=== PATIENT | female | born 1970 | race Caucasian/White ===

== ENCOUNTER 2023-11-01 10:10 | Inpatient (IN) ==
[2023-11-01 10:47] LABS: Basophils # (auto) 0.03 K/uL (0.00-0.20); Basophils % (auto) 0.2 %; Eosinophils # (auto) 0.01 K/uL (0.00-0.50); Eosinophils % (auto) 0.1 %; Hematocrit (blood only) 53.3 % (37.0-47.0); Hemoglobin 17.8 g/dl (12.0-16.0); Immature Granulocytes # (auto) 0.06 K/uL (0.01-0.20); Immature Granulocytes % (auto) 0.4 %; Lymphocytes # (auto) 1.78 K/uL (1.20-3.40); Lymphocytes % (auto) 11.2 %; Mean Corpuscular Hemoglobin 30.2 pg (25.0-34.0); Mean Corpuscular Hgb Conc 33.4 g/dL (32.0-36.0); Mean Corpuscular Volume 90.5 fL (80.0-100.0); Mean Platelet Volume 10.1 fL (9.4-12.4); Monocytes # (auto) 0.49 K/uL (0.11-0.59); Monocytes % (auto) 3.1 %; Neutrophils # (auto) 13.52 K/uL (1.40-6.50); Platelet Count 389 K/uL (130-400); RDW Standard Deviation 46.5 fL (36.4-46.3); Red Blood Count 5.89 M/uL (4.20-5.40); White Blood Count 15.89 K/ul (4.8-10.8)
[2023-11-01 11:07] LABS: Albumin Globulin Ratio 1.5 (0.9-2); Albumin Level 5.4 gm/dl (3.4-5.0); BUN Creatinine Ratio 27.5 (10-20); Bilirubin,Total 0.7 mg/dl (0.2-1.0); Calcium 11.5 mg/dl (8.6-10.3); Creatinine Clr Calc Pharmacy 55.7 ml/min; Est GFR (African American) 73.2 ml/min; Est GFR (Non-African American) 63.2 ml/min; Globulin 3.6 gm/dl (2.5-4.0); Potassium 3.9 mmol/L (3.5-5.1); Pregnancy Test, Serum Negative (Negative)
--- NOTE | 2023-11-01 11:08 | Emergency Department Note ---
Impression & Plan SBO (small bowel obstruction), Abdominal pain, Nausea & vomiting ED Provider Note HISTORY OF PRESENT ILLNESS: Patient is a 53-year-old female presenting with generalized abdominal pain and vomiting. Patient reports she has a history of diverticulitis, with her last bout of diverticulitis being a few years ago. She had surgery secondary to a perforated diverticula in the past. Reports that she ate a candy bar with peanuts in it last night and then developed generalized abdominal pain last night. Pain worsened today. She has had a few episodes of vomiting. Denies any other abdominal surgical histories. Denies any fevers. Denies any dysuria or hematuria. Reports the pain radiates into her left low back. Denies any diarrhea. She has not tried anything for the pain yet today. Currently rates an 8 out of 10. Denies any chest pain or shortness of breath. ROS: as above PHYSICAL EXAM: Constitutional: Patient appears in no acute distress. HENT: Head: Normocephalic and atraumatic. Eyes: EOMI, PERRL Mouth/Throat: Mucous membranes moist. Neck: Trachea midline. Neck supple. Cardiovascular: RRR, No murmurs, rubs or gallops. Intact distal pulses. Pulmonary/Chest: No respiratory distress. Breath sounds clear and equal bilaterally. No wheezes or rales. Abdominal: Abdomen soft, no tenderness, rebound or guarding. Musculoskeletal: No edema, tenderness or deformity noted. Skin: Warm and dry. No rash, erythema, pallor or cyanosis Psychiatric: Appropriate mood and affect for situation. Neurological: Alert and keenly responsive. CN II-XII grossly intact, moving all extremities equally and fully. MDM: - Vitals signs showed tachycardia - History obtained via patient. History as above. - Chronic conditions affecting care: diverticulitis - Differential diagnoses include, but are not limited to: diverticulitis; ischemic colitis; small bowel obstruction; UTI; ureteral calculi - Order placed for continuous cardiac monitoring. At this time, monitor showed rate of 99 bpm with normal sinus rhythm, per my interpretation. - External medical records reviewed. - Laboratory workup interpreted by myself showed leukocytosis (WBC 15.89 - likely concentrated from dehydration from vomiting); elevated anion gap (13); hypercalcemia (Ca 11.5); normal lipase; negative hCG; normal lactate - CT abdomen/pelvis with IV contrast showed high-grade small bowel obstruction with several transition points within the pelvis. Noted to have mild swelling of the mesentery concerning for a closed-loop obstruction. - Patient given 1L NS, 50 mcg IV fentanyl and 4 mg IV zofran in ER. - Discussed case with ALESSANDRO with general surgery at 12:27. She came and evaluated the patient. Requested patient be admitted to medicine service with surgery on as consult. Recommended NG tube placement. - NG tube inserted by nursing staff. - Discussion was had with immigration case worker about patient's case and need for admission - Hospitalist consulted for admission [facility] ASSESSMENT AND PLAN: Diagnosis: abdominal pain; high grade small bowel obstruction; closed loop obstruction Plan: admit Past Med/Surg History Problem List (Updated 11/01/23 @ 13:02 by Candy Cheung PA-C) Nausea & vomiting (Acute) Abdominal pain (Acute) SBO (small bowel obstruction) (Acute) Rabies, need for prophylactic vaccination against (Acute) Pasteurella cellulitis due to cat bite (Acute) Cat bite (Acute) Medical History (Updated 11/01/23 @ 13:02 by Candy Cheung PA-C) Depression GERD (gastroesophageal reflux disease) Diverticulitis Surgical History (Updated 11/01/23 @ 13:02 by Candy Cheung PA-C) Hx of colectomy 2020 Laparoscopic partial colectomy with coloproctostomy Hx of hemorrhoidectomy Hx of tubal ligation Hx of section Family History (Updated 11/01/23 @ 13:03 by Candy Cheung PA-C) Grandmother (Maternal) Diabetes Social History Smoking Status: Former smoker Tobacco Type: Cigarettes marital status: Current Living Situation: Spouse and Family current occupational status: employed Feels Safe at Home: Yes Allergies Allergies Allergy/AdvReac Type Severity Reaction Status Date / Time fluconazole Allergy Mild Rash Unverified 11/01/23 11:38 morphine Allergy Mild Hives Unverified 11/01/23 11:38 Home Meds Home Medications Medication Instructions Recorded Confirmed naproxen 1 tab PO DIRECTED PRN Pain 11/01/23 11/01/23 Results & Data (ED) Vital Signs Vital Signs - 24 hr 11/01/23 10:12 11/01/23 10:30 11/01/23 12:10 Temperature 36.7 C 36.7 C Temperature Source Temporal Artery Scan Oral Pulse Rate 123 H 106 H Pulse Rate [Right Finger] 99 H Pulse Rhythm [Right Finger] Regular Pulse Strength [Right Finger] Normal Respiratory Rate 16 16 Respiratory Effort / Characteristics Non-Labored Non-Labored Respiratory Depth Normal Normal Blood Pressure 114/81 Blood Pressure [Left Arm] 141/94 H Blood Pressure Mean 92 Blood Pressure Mean [Left Arm] 109 Blood Pressure Position [Left Arm] Lying Pulse Oximetry 97 97 Oxygen Delivery Method Room Air Room Air Sepsis Recent Fever Within 48 Hours No Sepsis New/Unexplained Change in Mental Status No Sepsis Action Taken by Nursing No Action Required Laboratory Data 11/01/23 10:25 11/01/23 10:25 Lab Results 11/01/23 11/01/23 Range/Units 10:25 12:40 WBC 15.89 H (4.8-10.8) K/ul RBC 5.89 H (4.20-5.40) M/uL Hgb 17.8 H (12.0-16.0) g/dl Hct 53.3 H (37.0-47.0) % MCV 90.5 (80.0-100.0) fL MCH 30.2 (25.0-34.0) pg MCHC 33.4 (32.0-36.0) g/dL RDW Std Deviation 46.5 H (36.4-46.3) fL RDW Coeff of Thong 14.0 (11.5-14.5) % Plt Count 389 (130-400) K/uL MPV 10.1 (9.4-12.4) fL Immature Gran % (Auto) 0.4 % Neut % (Auto) 85.0 % Lymph % (Auto) 11.2 % Callaway % (Auto) 3.1 % Eos % (Auto) 0.1 % Baso % (Auto) 0.2 % Neut # (Auto) 13.52 H (1.40-6.50) K/uL Lymph # (Auto) 1.78 (1.20-3.40) K/uL Callaway # (Auto) 0.49 (0.11-0.59) K/uL Eos # (Auto) 0.01 (0.00-0.50) K/uL Baso # (Auto) 0.03 (0.00-0.20) K/uL Immature Gran # (Auto) 0.06 (0.01-0.20) K/uL Sodium 139 (136-145) mmol/L Potassium 3.9 (3.5-5.1) mmol/L Chloride 100 (98-107) mmol/L Carbon Dioxide 26 (21-32) mmol/L Anion Gap 13 H (3-11) BUN 28 H (6-23) mg/dl Creatinine 1.02 (0.6-1.2) mg/dl Est Cr Clr Drug Dosing 55.7 ml/min Est GFR ( Amer) 73.2 ml/min Est GFR (Non-Af Amer) 63.2 ml/min BUN/Creatinine Ratio 27.5 H (10-20) Glucose 136 H (70-99(Fasting)) mg/dl Lactate 0.9 (0.4-2.0) mmol/L Calcium 11.5 H (8.6-10.3) mg/dl Total Bilirubin 0.7 (0.2-1.0) mg/dl AST 21 (13-39) U/L ALT 17 (7-52) U/L Alkaline Phosphatase 69 (34-104) U/L Total Protein 9.0 H (6.0-8.3) gm/dl Albumin 5.4 H (3.4-5.0) gm/dl Globulin 3.6 (2.5-4.0) gm/dl Albumin/Globulin Ratio 1.5 (0.9-2) Lipase 13 (11-82) U/L HCG, Qual Negative (Negative) Administered Medications Discontinued Medications Fentanyl Citrate (Fentanyl Citrate Pf 100 Mcg/2 Ml Vial) 50 mcg IV NOW STA Stop: 11/01/23 11:06 Last Admin: 11/01/23 11:31 Dose: 50 mcg Documented By: CAW Sodium Chloride (Nss) 1,000 mls @ 999 mls/hr IV .Q1H1M ONE Stop: 11/01/23 12:05 Last Admin: 11/01/23 11:29 Dose: 999 mls/hr Documented By: CAW Ioversol (Optiray 320 100ml) 93 ml IV ONCE ONE Stop: 11/01/23 11:20 Last Admin: 11/01/23 11:20 Dose: 93 ml Documented By: JOHNSON Ondansetron HCl (Ondansetron Inj 2 Mg/Ml 2 Ml Vial) 4 mg IV NOW STA Stop: 11/01/23 11:06 Last Admin: 11/01/23 11:31 Dose: 4 mg Documented By: WENDY Imaging Data Radiologist's Impression: Abdomen/Pelvis CT 11/01/23 10:56 CT OF THE ABDOMEN AND PELVIS WITH CONTRAST CLINICAL HISTORY: Lower abdominal pain. COMPARISON STUDY: CT of the abdomen and pelvis May 05, 2020. TECHNIQUE: Following IV administration of 93 mL of Optiray, axial images of the abdomen and pelvis were obtained from the lung bases to the proximal femurs. Images were reviewed in the axial, sagittal, and coronal planes. IV contrast was administered without complication. Automated exposure control was utilized for the study. A dose lowering technique was utilized adhering to the principles of ALARA. CT DOSE: 427.28 mGy.cm FINDINGS: No pneumatosis, free air or portal venous gas is present. Liver, spleen, adrenal glands, kidneys and pancreas are unremarkable. There is no biliary or pancreatic ductal dilatation. There is no hydronephrosis. Subcentimeter hypodense left lower pole renal lesion is similar to prior CT. This is benign. The proximal to mid small bowel is moderately dilated fluid- filled. Small bowel measure up to 4.7 cm in caliber. A transition point within the upper pelvis on image 208 of 349 is noted. This is adjacent to small bowel anastomosis. Additional small bowel loops converge on this point with additional apparent transition points. There is slight swirling of the mesentery. A small amount of associated ascites is present. No bowel wall thickening is identified. 6.5 cm fundal lesion within the uterus is unchanged and favors a fibroid. IMPRESSION: 1. Findings consistent with a high-grade small bowel obstruction. Several transition points in close proximity to one another within the pelvis, at/or adjacent to small bowel anastomoses. Mild swirling of the mesentery. Given the configuration, a closed loop obstruction cannot be excluded. Small amount of ascites. No pneumatosis, free air or portal venous gas. 2. 6.5 cm fibroid. ACT 112: Negative or not required by law. Electronically signed by: Gordo Chun M.D. 11/01/2023 12:15 PM Discharge Plan Visit Data Chief Complaint: Abdominal Pain Stated Complaint: DIVERTICULITIS, ABD PAIN, NAUSEA, LIGHTHEADED ED Provider: Yanely Blanchard Discharge Problem: SBO (small bowel obstruction), Abdominal pain, Nausea & vomiting Forms Stand Alone Forms: [employer] Prescriptions Prescriptions: No Action naproxen 1 tab PO DIRECTED PRN (Reason: Pain) Rx Instructions: otc, unknown dose Referrals Referrals: Heather Mendoza MD [Primary Care Provider] -
[2023-11-01] MEDS: OPTIRAY 320 100ml IV ONE (11:20)
[2023-11-01] MEDS: SODIUM CHLORIDE 0.9% 1,000 ML IV ONE (11:29)
[2023-11-01] MEDS: fentaNYL citrate PF 100 MCG/2 ML VIAL IV STA ×2 (11:31→13:50)
[2023-11-01] MEDS: ONDANSETRON INJ 2 MG/ML 2 ML VIAL IV STA ×2 (11:31→13:50)
--- NOTE | 2023-11-01 12:18 | CT Scan Report ---
CT OF THE ABDOMEN AND PELVIS WITH CONTRAST CLINICAL HISTORY: Lower abdominal pain. COMPARISON STUDY: CT of the abdomen and pelvis May 05, 2020. TECHNIQUE: Following IV administration of 93 mL of Optiray, axial images of the abdomen and pelvis we re obtained from the lung bases to the proximal femurs. Images were reviewed in the axial, sagittal, and coronal planes. IV contrast was administered without complication. Automated exposure control wa s utilized for the study. A dose lowering technique was utilized adhering to the principles of ALARA . CT DOSE: 427.28 mGy.cm FINDINGS: No pneumatosis, free air or portal venous gas is present. Liver, spleen, adrenal glands, ki dneys and pancreas are unremarkable. There is no biliary or pancreatic ductal dilatation. There is no hydronephrosis. Subcentimeter hypodense left lower pole renal lesion is similar to prior CT. This is benign. The proximal to mid small bowel is moderately dilated fluid-filled. Small bowel measure up t o 4.7 cm in caliber. A transition point within the upper pelvis on image 208 of 349 is noted. This is adjacent to small bowel anastomosis. Additional small bowel loops converge on this point with additi onal apparent transition points. There is slight swirling of the mesentery. A small amount of associa edgar ascites is present. No bowel wall thickening is identified. 6.5 cm fundal lesion within the uteru s is unchanged and favors a fibroid. IMPRESSION: 1. Findings consistent with a high-grade small bowel obstruction. Several transition points in close proximity to one another within the pelvis, at/or adjacent to small bowel anastomoses. Mild swirling of the mesentery. Given the configuration, a closed loop obstruction cannot be excluded. Small amount of ascites. No pneumatosis, free air or portal venous gas. 2. 6.5 cm fibroid. ACT 112: Negative or not required by law. Electronically signed by: Gordo Chun M.D. 11/01/2023 12:15 PM
--- NOTE | 2023-11-01 12:50 | Surgery Consultation ---
Date of Consultation November 01, 2023 Assessment & Plan (1) SBO (small bowel obstruction): Patient is a pleasant 53 yo with PMH of carpal tunnel and sigmoid bowel resection 2020 that presented to [facility] ER with c/o abdominal pain that started last night. She states her pain was stabbing in nature and had 2 episodes of nausea with vomiting this AM and associated chills. She had a bowel resection in 2020 at [facility] for a perforated diverticula, denies other abdominal surgeries. She has been NPO since last night, and takes a naproxen for her carpal tunnel, otherwise denies routine medication use. Last BM was yesterday, denies dysuria. On exam is in no acute distress, afebrile, vss , wbc 15, lactate 0.9, abdomen is mildly distended, TTP throughout but soft. reports feeling better since IV analgesics and antiemetics. The patient is not actively vomiting and denies nausea however given her CT scan reading she may benefit from an NGT for bowel decompression. admit to medicine KUB ordered Keep NPO IV Fluids for hydration IV antiemetic PRN IV analgesic PRN Continue conservative measures, Will discuss case with on-call surgeon and further recommendations will be forthcoming. Supervising Physician Co-Signing Physician Notes Patient seen and examined, labs and imaging reviewed, agree with above. Presented with small bowel obstruction. History of sigmoid colectomy for diverticulitis as well as and laparoscopic inguinal hernia repair. No prior episodes of bowel obstruction. Her abdomen feels bloated and weird but she does not have any significant pain at this time. On exam she is afebrile with stable vital, abdomen distended, soft, tender to palpation in lower abdomen, no guarding or rebound. WBC 15.89, CT personally reviewed and interpreted agree with the assessment of small bowel obstruction with transition point likely in the pelvis secondary to adhesions. It appears that the bowel was quite matted in this area and there are several bowel loops that are distended around it. NG tube has been placed but appears to be colon esophagus, would recommend repositioning. Would recommend nonsurgical management at this time, continue with NG tube to low remittent wall suction and bowel rest. Surgical follow, call questions or concerns History of Present Illness Reason for Consultation: SBO Requesting Physician: Yanely Blanchard History of Present Illness Patient is a pleasant 53 yo with PMH of carpal tunnel and sigmoid bowel resection 2020 that presented to [facility] ER with c/o abdominal pain that started last night. She states her pain was stabbing in nature and had 2 episodes of nausea with vomiting this AM and associated chills. She had a bowel resection in 2020 at [facility] for a perforated diverticula, denies other abdominal surgeries. She has been NPO since last night, and takes a naproxen for her carpal tunnel, other moore denies routine medication use. Last BM was yesterday, denies dysuria. Allergies Allergy/AdvReac Type Severity Reaction Status Date / Time fluconazole Allergy Mild Rash Unverified 11/01/23 11:38 morphine Allergy Mild Hives Unverified 11/01/23 11:38 Home Medications Medication Instructions Recorded Confirmed Type naproxen 1 tab PO DIRECTED PRN Pain 11/01/23 11/01/23 History Patient History Medical History Depression GERD (gastroesophageal reflux disease) Diverticulitis Surgical History Hx of colectomy 2020 Laparoscopic partial colectomy with coloproctostomy Hx of hemorrhoidectomy Hx of tubal ligation Hx of section Family History Grandmother (Maternal) Diabetes Social History Smoking Status: Former smoker Tobacco Type: Cigarettes marital status: Current Living Situation: Spouse and Family current occupational status: employed Feels Safe at Home: Yes Review of Systems Constitutional: + chills; no fever Respiratory: no dyspnea Cardiovascular: no chest pain Gastrointestinal: + abdominal pain, + bloating, + nausea a nd + vomiting Genitourinary: no dysuria Musculoskeletal: no muscle weakness Physical Exam Constitutional: cooperative; no acute distress Respiratory: normal respiratory effort and able to speak in complete sentences; no respiratory distress Cardiovascular: Rate/Rhythm: + tachycardic (99) Gastrointestinal (Abdomen): Inspection/Auscultation: + abdomen distended and + abdominal surgical scar Percussion/Palpation: + abdomen tender and abdomen soft Results & Data Vital Signs (Past 12 Hours) Vital Signs Temp Pulse Pulse Resp BP BP Pulse Ox 11/01/23 12:10 98.1 F 99 H 16 141/94 H 97 11/01/23 10:30 106 H 11/01/23 10:12 98.1 F 123 H 16 114/81 97 O2 Del Method 11/01/23 12:10 Room Air 11/01/23 10:30 11/01/23 10:12 Room Air Diagnostic Findings [place], [place] [phone] CT Scan Report Patient: STEPHANIE CAMPBELL Admit Date: 11/01/23 MR#: [id number] Address[address]: [address] Acct ID:[id number] Address2: Date: 1970 [facility] Zip: [place] [address] Age: 53 Location: ED Sex: F Room/Bed: Att Phy: Diagnosis: DIVERTICULITIS, ABD PAIN, NAUSEA, LIGHTHEADED Corie Phy: Heather Mendoza MD Service Date: 11/01/23 [facility] Phy: Interpreting Phy: Gordo Chun [facility] Phy: Ordering Phy: Yanely Blanchard MD cc: ~ CT OF THE ABDOMEN AND PELVIS WITH CONTRAST CLINICAL HISTORY: Lower abdominal pain. COMPARISON STUDY: CT of the abdomen and pelvis May 05, 2020. TECHNIQUE: Following IV administration of 93 mL of Optiray, axial images of the abdomen and pelvis were obtained from the lung bases to the proximal femurs. Images were reviewed in the axial, sagittal, and coronal planes. IV contrast was administered without complication. Automated exposure control was utilized for the study. A dose lowering technique was utilized adhering to the principles of ALARA. CT DOSE: 427.28 mGy.cm FINDINGS: No pneumatosis, free air or portal venous gas is present. Liver, spleen, adrenal glands, kidneys and pancreas are unremarkable. There is no biliary or pancreatic ductal dilatation. There is no hydronephrosis. Subcentimeter hypodense left lower pole renal lesion is similar to prior CT. This is benign. The proximal to mid small bowel is moderately dilated fluid- filled. Small bowel measure up to 4.7 cm in caliber. A transition point within the upper pelvis on image 208 of 349 is noted. This is adjacent to small bowel anastomosis. Additional small bowel loops converge on this point with additional apparent transition points. There is slight swirling of the mesentery. A small amount of associated ascites is present. No bowel wall thickening is identified. 6.5 cm fundal lesion within the uterus is unchanged and favors a fibroid. IMPRESSION: 1. Findings consistent with a high-grade small bowel obstruction. Several transition points in close proximity to one another within the pelvis, at/or adjacent to small bowel anastomoses. Mild swirling of the mesentery. Given the configuration, a closed loop obstruction cannot be excluded. Small amount of ascites. No pneumatosis, free air or portal venous gas. 2. 6.5 cm fibroid. ACT 112: Negative or not required by law. Electronically signed by: Gordo Chun M.D. 11/01/2023 12:15 PM Dictated: 11/01/23 1205 Transcribed: 11/01/23 120 Results CBC w Diff Results: RBC 5.89 M/uL (4.20-5.40) H 11/01/23 WBC 15.89 K/ul (4.8-10.8) H 11/01/23 Hgb 17.8 g/dl (12.0-16.0) H 11/01/23 Hct 53.3 % (37.0-47.0) H 11/01/23 MCV 90.5 fL (80.0-100.0) 11/01/23 MCH 30.2 pg (25.0-34.0) 11/01/23 MCHC 33.4 g/dL (32.0-36.0) 11/01/23 RDW Standard Deviation 46.5 fL (36.4-46.3) H 11/01/23 RDW Coefficient of Variation 14.0 % (11.5-14.5) 11/01/23 Plt Count 389 K/uL (130-400) 11/01/23 MPV 10.1 fL (9.4-12.4) 11/01/23 Neutrophils (%) (Auto) 85.0 % 11/01/23 Lymphocytes (%) (Auto) 11.2 % 11/01/23 Monocytes # (Auto) 0.49 K/uL (0.11-0.59) 11/01/23 Eosinophils # (Auto) 0.01 K/uL (0.00-0.50) 11/01/23 Immature Granulocyte % (Auto) 0.4 % 11/01/23 Neutrophils # (Auto) 13.52 K/uL (1.40-6.50) H 11/01/23 Lymphocytes # (Auto) 1.78 K/uL (1.20-3.40) 11/01/23 Monocytes # (Auto) 0.49 K/uL (0.11-0.59) 11/01/23 Eosinophils # (Auto) 0.01 K/uL (0.00-0.50) 11/01/23 Basophils # (Auto) 0.03 K/uL (0.00-0.20) 11/01/23 Immature Granulocyte # (Auto) 0.06 K/uL (0.01-0.20) 4 PG Care Time/CCT Total # of Minutes Spent Total Time Spent with Patient: Total time spent is greater than 50% in coordination of care (as documented) at patient's floor/unit and/or counseling patient: Coding Level of Care Code 48962 IN/OBS CONSULT LVL 3,45M Diagnoses SBO (small bowel obstruction) K56.609
[2023-11-01] MEDS ORDERED: ONDANSETRON INJ 2 MG/ML 2 ML VIAL IV PRN (13:29)
[2023-11-01] MEDS: BENZOCAINE/TETRACAIN/BUTAM 50 APPLN/5 GM CAN EXT ONE (13:40)
--- NOTE | 2023-11-01 13:46 | History & Physical Report ---
Date of Service November 01, 2023 Assessment & Plan (1) SBO (small bowel obstruction): Plan: This is a 53 yr old M who has a significant PMH of diverticulitis complicated with abscess s/p partial colectomy in 2020, GERD, hx of depression, hx of tobacco abuse who presents to ED 2/2 abd pain x 1 day. High Grade Small bowel obstruction admit to med/surg hx of prior abd surgeries include c section, partial colectomy --CT a/p: Findings consistent with a high-grade small bowel obstruction. Several transition points in close proximity to one another within the pelvis, at/or adjacent to small bowel anastomoses. Mild swirling of the mesentery. Given the configuration, a closed loop obstruction cannot be excluded. Small amount of ascites. No pneumatosis, free air or portal venous gas. NPO, Bowel rest, IVF LR @100cc/hr, pepcid IV BID NGT ordered, nurse to place in ED General surgery consulted - await further recs pt with morphine allergy, will add scheduled IV APAP and prn IV dilaudid for severe pain Hx of complicated diverticulitis with abscess s/p partial colectomy in 2020 at [facility] Tobacco abuse in process of quitting smoking, hasn't smoked last 2 days continue to encourage cessation prn nicotine patch DVT ppx: SQ Heparin in event surgical procedure warranted FULL CODE PCP: Dr. Dhruv Valentine Dispo: admit to med/surg Pt was seen and examined in collaboration with Dr. Cruz, please see addendum A total of 50 minutes was spent coordinating, documenting, and providing care for this patient excluding time spent in the performance of separately billed services. This included personally viewing all current laboratories and imaging studies, medication reconciliation, outpatient chart review, and discussion with specialists. History of Present Illness Chief Complaint: Abdominal pain x 1 day. Primary Care Provider: Heather Mendoza MD This is a 53 yr old M who has a significant PMH of diverticulitis complicated with abscess s/p partial colectomy in 2020, GERD, hx of depression, hx of tobacco abuse who presents to ED 2/2 abd pain x 1 day. Her is at bedside who helps elicit hx. She woke up this morning with a, "burning pain" in her abdomen that radiated up the side of her back. Pain was constant but would wax and wane in severity. She thought this was her diverticulitis due to prior hx of and recently eating chocolate bar with peanuts. She feels chilled but denies any documented fevers. She has had severe nausea with several episodes of vomiting. She had a BM yesterday morning but was formed and small. She had diarrhea on Sunday. Over last few days she notes a decreased appetite. She denies hematemesis, melena, hematochezia, dysuria, increased burn/urg with urination. In ED she underwent CT scan which shows High grade small bowel obstruction. Ge neral surgery was consulted but has not yet seen the patient. ED provider started antiemetics, analgesia and fluids. Allergies Allergy/AdvReac Type Severity Reaction Status Date / Time fluconazole Allergy Mild Rash Unverified 11/01/23 11:38 morphine Allergy Mild Hives Unverified 11/01/23 11:38 Home Medications Medication Instructions Recorded Confirmed Type naproxen 1 tab PO DIRECTED PRN Pain 11/01/23 11/01/23 History Past Med/Surg History Problem List Nausea & vomiting (Acute) Abdominal pain (Acute) SBO (small bowel obstruction) (Acute) Rabies, need for prophylactic vaccination against (Acute) Pasteurella cellulitis due to cat bite (Acute) Cat bite (Acute) Medical History Depression GERD (gastroesophageal reflux disease) Diverticulitis Surgical History Hx of colectomy 2020 Laparoscopic partial colectomy with coloproctostomy Hx of hemorrhoidectomy Hx of tubal ligation Hx of section Family History Grandmother (Maternal) Diabetes Social History Smoking Status: Former smoker Tobacco Type: Cigarettes marital status: Current Living Situation: Spouse and Family current occupational status: employed Feels Safe at Home: Yes Review of Systems Review of Systems: All systems reviewed & are unremarkable except as noted in HPI & below Physical Exam Physical Exam: Constitutional: WD/WN, vitals as above, appears acutely ill, +pain, sitting up in bed, pleasant, conversing easily Head: Normocephalic, Atraumatic Eyes: PERRL, conjunctivae normal, anicteric sclerae ENMT: external ear and nose normal, oropharynx normal/dry Neck: trachea midline, no thyromegaly normal visual inspection Respiratory: normal respiratory effort, lungs clear to auscultation, no wheeze, rales, rhonchi. Normal insp/exp effort, no accessory muscle use Cardiovascular: RRR, no murmur, no edema Vessels: no JVD or carotid bruit Chest: normal inspection of chest Abdomen: absent bowel sounds, soft, TTP throughout, no rebound/guarding Musculoskeletal: no cyanosis or clubbing, AROM x 4 Skin: no rashes, warm and dry normal turgor Neurologic: no face palsy, no dysarthria CN's II-XI intact bilaterally and moves all extremities Psychiatric: A+Ox3, euthymic affect : deferred Results & Data Results & Data Vital Signs (Past 12 Hours) Vital Signs Temp Pulse Pulse Resp BP BP Pulse Ox 11/01/23 12:10 36.7 C 99 H 16 141/94 H 97 11/01/23 10:30 106 H 11/01/23 10:12 36.7 C 123 H 16 114/81 97 O2 Del Method 11/01/23 12:10 Room Air 11/01/23 10:30 11/01/23 10:12 Room Air Laboratory Results I have independently reviewed and interpreted patient's admitting labs including CBC, CMP, lactate, lipase,hcg. Diagnostic Findings Abdomen/Pelvis CT 11/01/23 10:56 CT OF THE ABDOMEN AND PELVIS WITH CONTRAST CLINICAL HISTORY: Lower abdominal pain. COMPARISON STUDY: CT of the abdomen and pelvis May 05, 2020. TECHNIQUE: Following IV administration of 93 mL of Optiray, axial images of the abdomen and pelvis were obtained from the lung bases to the proximal femurs. Images were reviewed in the axial, sagittal, and coronal planes. IV contrast was administered without complication. Automated exposure control was utilized for the study. A dose lowering technique was utilized adhering to the principles of ALARA. CT DOSE: 427.28 mGy.cm FINDINGS: No pneumatosis, free air or portal venous gas is present. Liver, spleen, adrenal glands, kidneys and pancreas are unremarkable. There is no bilia ry or pancreatic ductal dilatation. There is no hydronephrosis. Subcentimeter hypodense left lower pole renal lesion is similar to prior CT. This is benign. The proximal to mid small bowel is moderately dilated fluid-filled. Small bowel measure up to 4.7 cm in caliber. A transition point within the upper pelvis on image 208 of 349 is noted. This is adjacent to small bowel anastomosis. Additional small bowel loops converge on this point with additional apparent transition points. There is slight swirling of the mesentery. A small amount of associated ascites is present. No bowel wall thickening is identified. 6.5 cm fundal lesion within the uterus is unchanged and favors a fibroid. IMPRESSION: 1. Findings consistent with a high-grade small bowel obstruction. Several transition points in close proximity to one another within the pelvis, at/or adjacent to small bowel anastomoses. Mild swirling of the mesentery. Given the configuration, a closed loop obstruction cannot be excluded. Small amount of ascites. No pneumatosis, free air or portal venous gas. 2. 6.5 cm fibroid. ACT 112: Negative or not required by law. Electronically signed by: Gordo Chun M.D. 11/01/2023 12:15 PM Medications Administered Medication List Discontinued Medications Fentanyl Citrate (Fentanyl Citrate Pf 100 Mcg/2 Ml Vial) 50 mcg IV NOW STA Stop: 11/01/23 11:06 Last Admin: 11/01/23 11:31 Dose: 50 mcg Documented By: WENDY Sodium Chloride (Nss) 1,000 mls @ 999 mls/hr IV .Q1H1M ONE Stop: 11/01/23 12:05 Last Admin: 11/01/23 11:29 Dose: 999 mls/hr Documented By: WENDY Ioversol (Optiray 320 100ml) 93 ml IV ONCE ONE Stop: 11/01/23 11:20 Last Admin: 11/01/23 11:20 Dose: 93 ml Documented By: JOHNSON Ondansetron HCl (Ondansetron Inj 2 Mg/Ml 2 Ml Vial) 4 mg IV NOW STA Stop: 11/01/23 11:06 Last Admin: 11/01/23 11:31 Dose: 4 mg Documented By: WENDY COVID-19 Results Results COVID-19 Adm Lab Results: RBC 5.89 M/uL (4.20-5.40) H 11/01/23 WBC 15.89 K/ul (4.8-10.8) H 11/01/23 Hgb 17.8 g/dl (12.0-16.0) H 11/01/23 Hct 53.3 % (37.0-47.0) H 11/01/23 Plt Count 389 K/uL (130-400) 11/01/23 Neutrophils (%) (Auto) 85.0 % 11/01/23 Lymphocytes (%) (Auto) 11.2 % 11/01/23 Monocytes # (Auto) 0.49 K/uL (0.11-0.59) 11/01/23 Eosinophils # (Auto) 0.01 K/uL (0.00-0.50) 11/01/23 Immature Granulocyte % (Auto) 0.4 % 11/01/23 Neutrophils # (Auto) 13.52 K/uL (1.40-6.50) H 11/01/23 Lymphocytes # (Auto) 1.78 K/uL (1.20-3.40) 11/01/23 Monocytes # (Auto) 0.49 K/uL (0.11-0.59) 11/01/23 Eosinophils # (Auto) 0.01 K/uL (0.00-0.50) 11/01/23 Basophils # (Auto) 0.03 K/uL (0.00-0.20) 11/01/23 Immature Granulocyte # (Auto) 0.06 K/uL (0.01-0.20) 4 Na 139 mmol/L (136-145) 11/01/23 K 3.9 mmol/L (3.5-5.1) 11/01/23 Cl 100 mmol/L (98-107) 11/01/23 CO2 26 mmol/L (21-32) 11/01/23 Anion Gap 13 (3-11) H 11/01/23 BUN 28 mg/dl (6-23) H 11/01/23 Creatinine 1.02 mg/dl (0.6-1.2) 11/01/23 BUN/Creatinine Ratio 27.5 (10-20) H 11/01/23 Glucose Level 136 mg/dl (70-99(Fasting)) H 11/01/23 Ca 11.5 mg/dl (8.6-10.3) H 11/01/23 Total Bilirubin 0.7 mg/dl (0.2-1.0) 11/01/23 AST/SGOT 21 U/L (13-39) 11/01/23 ALT/SGPT 17 U/L (7-52) 11/01/23 Alkaline Phosphatase 69 U/L (34-104) 11/01/23 Total Protein 9.0 gm/dl (6.0-8.3) H 11/01/23 Albumin 5.4 gm/dl (3.4-5.0) H 11/01/23 Globulin 3.6 gm/dl (2.5-4.0) 11/01/23 Albumin/Globulin Ratio 1.5 (0.9-2) 11/01/23 Code Status & VTE Plan Code Status FULL CODE VTE Prophylaxis Plan VTE Prophylaxis will be ordered: Yes Supervising Physician Co-Signing Physician Notes Patient is a 53-year-old female with history of diverticular abscess s/p colectomy, tobacco use disorder fibroid uterus and other medical problems presents with history of nausea, vomiting, abdominal pain associated with chills, decreased appetite. Her last bowel movement was yesterday. Also reports having some diarrhea 3 days ago. Please review HPI for complete details of presentation. I personally reviewed blood work and imaging studies. Blood work suggestive of hemoconcentration, leukocytosis, hypercalcemia. CT abdomen suggestive of high-grade small bowel obstruction, fibroid uterus. Physical Exam: Vitals signs as noted above General Appearance: Thin, no apparent distress Head: normocephalic, Atraumatic Eyes: normal inspection, EOMI Neck: supple, Trachea midline Respiratory/Chest: Normal breath sounds, CTA, No accessory muscle use Cardiovascular: S1, S2, No murmur Abdomen/GI:Soft, mildly distended, tender predominantly lower quadrant, bowel sounds absent Extremities/Musculoskeletal:normal inspection, no edema Neurologic/Psych:AAOX3, grossly no focal neurological deficits Skin: normal color, warm High-grade small bowel obstruction Hypercalcemia likely dehydration Leukocytosis likely reactive Agree with IV fluids, bowel rest, pain control, NG tube Surgery on board No obvious source of infection, no antibiotics for now Monitor calcium levels,WBC I personally interviewed and examined at bedside. Patient's care is coordinated with Candy Cheung PA-C. I have reviewed the advanced practitioner's documentation, and I agree with plan of care. Please refer to the documentation above for details of patient's presentation and for discussion of other issues. I spent a total of28 minutes coordinating, documenting, and providing care for this patient excluding time spent in the performance of separately billed services.
--- OUTSIDE RECORDS SUMMARY | 2023-11-01 14:49 | External Medical Summary | Summary of Care ---
Author Name Unknown Organization [facility] Address [address] [place] [address] Phone [phone] Care Team Providers Care Mushroom Growth Media Mixer Name Role Phone Heather Castañeda MD Primary Care Prov ider Reason for Visit * Reason Onset Date Comments Med Request 10/31/2023 Encounter Details Date Type Department Care Team (Late st Contact Info) Description 10/31/2023 Telephone Access Center, [place] [address] [facility] *DO NOT REMOVE THIS DEPARTMENT* [place] [address] Services, Scheduling [address] [place] [address] Med Request Allergies Active Allergy Reactions Criticality Noted Date Comments Fluconazole Rash 05/14/2020 Morphine Hives 05/05/2020 When Morphine pushed at outside hospital patient had local skin reaction of itching and hives. documented as of this encounter (statuses as of 10/31/2023) Medications Medication Sig Dispensed Refills Start Date End Date Status predniSONE 10 MG Oral Tablet (Deltasone) Take 5 tabs for 2 days, 4 tabs for 2 days, 3 tabs for 2 days, 2 tabs for 2 days 1 tab for 2 days 30 Tablet 10/31/2023 Active documented as of this encounter (statuses as of 10/31/2023) Active Problems Problem Noted Date Diagnosed Date Major depressive disorder wi th single episode, in full remission 10/21/2020 Abnormal Papanicolaou smear of cervix with positive human papilloma virus (HPV) test 04/07/2019 Overview: Normal pap + HPV Mar 2019 Uterine leiomyoma 04/01/2019 Post-menopausal bleeding 04/01/2019 Hot flashes 12/13/2018 Perimenopause 12/13/2018 Breast cancer screening 12/13/2018 Tobacco use disorder 11/23/2009 ADVANCE DIRECTIVE INFORMATION 04/25/2006 Overview: No, Advance Directive brochure given to patient. Esophagitis Overview: ICD-10 update of inactive term Esophageal reflux documented as of this encounter (statuses as of 10/31/2023) Resolved Problems Problem Noted Date Diagnosed Date Resolved Date Diverticulitis of large inte angelica with perforation and abscess without bleeding 05/06/2020 09/16/2020 Bleeding hemorrhoids 12/05/2019 021 Hemorrhoids, external without complications 12/13/2018 09/16/2020 Major depressive disorder Overview: ICD-10 update of inactive term documented as of this encounter (statuses as of 10/31/2023) Immunizations Name Administration Dates Next Due COVID-19 mRNA, LNP-s, No Pre serve, 2-Dose Series (Moderna) 07/12/2020,06/14/2020 COVID-19, mRNA, LNP-s, PF, B ooster, 100mcg/0.5mg (Moderna) 02/07/2021 Hepatitis B, 20+ yrs 11/10/2022,06/20/2022,05/10 PPD 11/23/2006 Pneumococcal Polysaccharide PPV23 (Pneumovax) 12/13/2018 Seasonal Influenza, PF, 6 M & above, IM , (FluLaval or Fluzone) 11/10/2022,05/10/2022,12/09/2020,12/21,12/13/2018 TDAP (age 10 and older)(Boostrix) 03/21/2016 TDAP, Age 7 and older, IM (Adacel) 08/08/2009 Zoster Vaccine Recombinant (Shingrix) 11/10/2022 ,05/10/2022 documented as of this encounter Social History Tobacco Use Types Packs/Day Years Used Date Smoking Tobacco: Former Cigarettes 0.5 25 0 05/12/1994 - 05/13/2019 Smokeless Tobacco: Never Alcohol Use Standard Drinks/Week Comments No 0 (1 standard drink = 0.6 oz pur e alcohol) PHQ-2 Answer Date Recorded PHQ-2 Score 0 12/22/2019 Hunger Vital Sign Answer Date Recorded Worried About Running Out of Food in the Last Ye ar Never true 09/16/2019 Ran Out of Food in the Last Year Never true 09/16/2019 Sex and Gender Information Value Date Recorded Sex Assigned at Not on file Gender Identity Not on file Sexual Orientation Not on file Job Start Date Occupation Industry Not on file Not on file Not on file documented as of this encounter Functional Status Functional Status Response Date of Assess ment Are you deaf or do you have serious difficulty h earing? No 08/18/2020 Are you blind or do you have serious difficulty seeing, even when wearing glasses? No 08/18/2020 Do you have serious difficul ty walking or climbing stairs? (5 years old or older) No 08/18/2020 Do you have difficulty dress ing or bathing? (5 years old or older) No 08/18/2020 Because of a physical, menta l, or emotional condition, do you have difficulty doing errands alone such as visiting a doctor s office or shopping? (15 years old or older) No 08/19/19 21 Cognitive Status Response Date of Assessm ent Because of a physical, menta l, or emotional condition, do you have serious difficulty concentrating, remembering, or making decisions? (5 years old or older) No 08/18/2020 documented as of this encounter Miscellaneous Notes * Telephone Encounter - Maeve Mehta RN - 10/31/2023 4:19 PM EDT Pt aware * Telephone Encounter - Heather Castañeda MD - 10/31/2023 1:22 PM EDT Rx sent. * Telephone Encounter - Sosa Mason OSA - 10/31/2023 11:54 AM EDT Pt calling requesting to have another steroid sent into pharmacy for her for her 3rd case of poisonivy. Pt declined scheduling an appt at this time due to it being her 3rd case of poison this season. Thank you documented in this encounter Plan of Treatment Upcoming Encounters Date Type Department Care Team (Late st Contact Info) Description 07/09/2024 2:40 PM EDT Office Visit Family Medicine [address] [place] [address] Heather Castañeda MD [address] [place] [address] [place] [phone] Scheduled Procedures Name Priority Associated Diagnoses Date/Ti me COLONOSCOPY FLEXIBLE PROXIMAL DIAGNOSTIC Recall Screen for colon cancer Health Maintenance Due Date Last Done Comments Hepatitis C Screening 08/16/1989 HPV/Co-Test 08/16/2001 Cologuard 08/16/2016 Fecal Occult Blood Test 08/16/2016 Sigmoidoscopy 08/16/2016 Depression Monitoring 12/21/2020 12/22/2019 COVID-19 Vaccine ( season) 2022 02/07/2021, 07/12/2020, 06/14/2020 Mammogram 08/04/2023 08/03/2022, 0603/2022, 04/15/2021, Additional history exists Influenza Vaccine (FLU shot) (#1) 2023 11/10/2022, 05/10/2022, 12/09/2020, Additional history exists Cervical Cancer Screening 12/10/2023 Pap Smear 12/10/2023 12/09/2020, 03/06, 04/01/2019, Additional history exists Lipid Panel 12/14/2023 12/13/2018 DTap/Tdap Vaccines (4 - Td or Tdap) 12/21/2029 12/22/2019 (Done elsewhere), 03/21/2016, 08/08/2009 Colonoscopy 07/23/2030 07/23/2020, 07/23/2020 Colorectal Cancer Screening 07/23/2030 Pneumococcal Vaccine: Pediatrics (0 to 5 Years) and At-Risk Patients (6 to 64 Years) Aged Out 12/13/2018 No longer eligible based on patient's age to complete this topic Hepatitis B Vaccine Completed 11/10/2022, 06/20/2022, 05/10/2022 Zoster Vaccines Completed 11/10/2022, 05/10/2022 HPV (Gardasil) Vaccine Aged Out No lo nger eligible based on patient's age to complete this topic MENINGOCOCCAL (MENACTRA/MENVEO) Aged Out No longer eligible based on patient's age to complete this topic documented as of this encounter Medical Devices Implanted Type Area Crown Assembly Machine Operator Device Identifier Shelf Expiration Date Model / Serial / Lot Mesh 3dmax 3.1x5.3in Rht Med - [id number] Implanted:Qty: 1 on 08/04/2022 by Josh Sanchez MD at OR [facility] Right: Abdomen CR BARD : DAVOL 12/30/2026 [id number] / / [id number] documented as of this encounter Advance Directives * Full Code (Latest Code Status on File) Date Activated Date Inactivated Comments 08/04/2022 9:24 AM 08/04/2022 4:55 PM This order ref lects the patients wishes and were consensually agreed upon. Question Answer Comments Discussion of Advance Directives occurred with: Patient * Full Code Date Activated Date Inactivated Comments 08/04/2022 9:16 AM 08/04/2022 9:24 AM This order ref lects the patients wishes and were consensually agreed upon. Question Answer Comments Discussion of Advance Directives occurred with: Patient * Full Code Date Activated Date Inactivated Comments 2020 4:55 PM 08/20/2020 4:23 PM This order r eflects the patients wishes and were consensually agreed upon. Question Answer Comments Discussion of Advance Directives occurred with: Not Discussed * Full Code Date Activated Date Inactivated Comments 05/05/2020 9:11 PM 05/14/2020 9:15 PM Question Answer Comments Discussion of Advance Directives occurred with: Not Discussed Does the patient have a Living Will? No Does the patient have Health Care Power of Attor yehuda? No * Full Code Date Activated Date Inactivated Comments 04/04/2019 12:42 PM 04/04/2019 5:32 PM This order reflects the patients wishes and were consensually agreed upon. Question Answer Comments Discussion of Advance Directives occurred with: Patient Does the patient have a Living Will? No Does the patient have Health Care Power of Attor yehuda? No Care Teams Mushroom Growth Media Mixer Relationship Specialty Start Date End Date Heather Castañeda MD [address] [place] [address] [place] [id number] PCP - General Family Medicine 12/13/18 documented as of this encounter
--- OUTSIDE RECORDS SUMMARY | 2023-11-01 14:49 | External Medical Summary | Summary of Care ---
Author Name Unknown Organization [facility] Address [address] [place] [address] Phone [phone] Care Team Providers Care Med Peds Name Role Phone Heather Castañeda MD Primary Care Prov ider Reason for Visit * Reason Onset Date Comments Med Request 10/31/2023 Encounter Details Date Type Department Care Team (Late st Contact Info) Description 10/31/2023 Telephone Access Center, [place] [address] [facility] *DO NOT REMOVE THIS DEPARTMENT* [place] [address] Services, Scheduling [address] [place] [address] Med Request Allergies Active Allergy Reactions Criticality [...] 2:40 PM EDT Office Visit Family Medicine [address] [place] [address] Heather Castañeda MD [address] [place] [address] [place] [phone] Scheduled Procedures Name Priority [...] this encounter Medical Devices Implanted Type Area Seafood Manager Device Identifier Shelf Expiration Date Model / Serial / Lot Mesh 3dmax 3.1x5.3in Rht Med - [id number] Implanted:Qty: 1 on 08/04/2022 by Josh Sanchez MD at OR [facility] Right: Abdomen CR BARD : DAVOL 12/30/2026 [id number] / / [id number] documented as of this encounter Advance Directives [...] Power of Attor yehuda? No Care Teams Med Peds Relationship Specialty Start Date End Date Heather Castañeda MD [address] [place] [address] [place] [id number] PCP - General Family Medicine 12/13/18 documented as of this encounter
[2023-11-01] MEDS: LACTATED RINGER'S 1,000 ML IV SCH ×2 (15:10→16:30)
--- NOTE | 2023-11-01 15:21 | XRay Report ---
KUB CLINICAL HISTORY: Enteric tube placement. FINDINGS: An AP upright view of the lower chest and upper abdomen is correlated with abdominal CT per formed earlier the same day 11/01/2023. An enteric tube is in place. The tip is coiled in the distal e sophagus. Excreted IV contrast is seen within the renal collecting systems. There is gaseous distenti on of the small bowel loops which measure up to 6 cm. This is consistent with small bowel obstruction . No intraperitoneal free air is identified below the diaphragm. The hepatic silhouette appears enlar ged. The lung bases are clear as imaged. The visualized bony structures appear intact. IMPRESSION: 1. The enteric tube is coiled in the distal esophagus. Repositioning is indicated. 2. Again seen is evidence of high-grade small bowel obstruction. Electronically signed by: Justyn Rogel M.D. 11/01/2023 3:20 PM
[2023-11-01] MEDS: HYDROmorphone INJ 0.5 MG/0.5 ML SYR IV PRN (15:50)
[2023-11-01] MEDS: FAMOTIDINE 20MG IV PUSH 20 MG/5 ML SYR IV SCH (15:50)
[2023-11-01] MEDS: ACETAMINOPHEN 1,000 MG/100 ML VIAL IV SCH (15:50)
--- NOTE | 2023-11-01 16:00 | XRay Report ---
KUB CLINICAL HISTORY: NG tube reposition COMPARISON STUDY: CT of the abdomen and pelvis and KUB performed earlier today. FINDINGS: The nasogastric tube has been repositioned. The tip is within the gastric fundus. The tip i s well-positioned. Multiple dilated loops of small bowel are again noted. Contrast within the collect ing systems from recent contrast-enhanced CT is present. IMPRESSION: Well-positioned nasogastric tube. Tip within the gastric fundus. ACT 112: Negative or not required by law. Electronically signed by: Gordo Chun M.D. 11/01/2023 3:58 PM
[2023-11-01] MEDS: HEPARIN SOD 5,000 UNIT/0.5 ML VIAL SQ SCH (20:31)
[2023-11-01] MEDS: ONDANSETRON INJ 2 MG/ML 2 ML VIAL IV PRN (20:31)
[2023-11-01] MEDS: CALAMINE/PRAMOXINE LOTION 180 APPLN/180 ML BTL EXT SCH (20:56)
[2023-11-01 22:58] LABS: Appearance Urine Clear (Clear); Bacteria Urine Automated None Seen (None Seen); Bilirubin Urine Negative (Negative); Blood Urine Negative (Negative); Calcium Oxalate Crystals Urine Present (None Prsent); Cast Urine Automated 0-2 /lpf (0-2); Color Urine Yellow; Glucose Urine UA Negative (Negative); Ketones Urine 1+ (Negative); Leukocyte Esterase Urine Negative (Negative); Nitrite Urine Negative (Negative); Protein Urine 1+ (Negative); RBC Urine Automated 0-2 /hpf (0-2); Specific Gravity Urine > 1.045 (1.000-1.030); Urobilinogen Urine Negative (Negative); WBC Urine Automated 0-5 /hpf (0-5)
[2023-11-02] MEDS: HYDROmorphone INJ 0.5 MG/0.5 ML SYR IV STA (03:29)
--- NOTE | 2023-11-02 08:14 | Surgery Progress Note ---
Date of Service November 02, 2023 Assessment & Plan (1) SBO (small bowel obstruction): Plan: COntinue NGT at [facility] encouraged OOB as tolerated and in halls No flatus or BM this AM abd distended , soft kUB ordered for this AM Labs not drawn yet continue conservative measures will follow Admission and Anticipated Discharge Date Admission Date: November 01, 2023 Supervising Physician Co-Signing Physician Notes Patient seen examined, labs imaging reviewed, agree with above. Admitted with small bowel obstruction, history of sigmoidectomy for diverticulitis after abscess. Minimal flatus, 2 small bowel movements, symptoms are essentially stable. No increase in pain. Abdomen soft, distended, tender to palpation in the lower abdomen. KUB with persistent obstruction. Will continue to monitor, Dr. Sanchez covering over the week Subjective pt reports feeling same as yesterday no flatus this AM Review of Systems Respiratory: no dyspnea Cardiovascular: no chest pain Gastrointestinal: + abdominal pain, + bloating, + nausea a nd + vomiting Genitourinary: no dysuria Musculoskeletal: no muscle weakness Physical Exam Constitutional: cooperative; no acute distress Respiratory: normal respiratory effort and able to speak in complete sentences; no respiratory distress Cardiovascular: Rate/Rhythm: regular rate Gastrointestinal (Abdomen): Inspection/Auscultation: + abdomen distended and + abdominal surgical scar Percussion/Palpation: + abdomen tender and abdomen soft Results & Data Vital Signs (Past 12 Hours) Vital Signs Temp Pulse Pulse Resp BP Pulse Ox O2 Del Method 11/02/23 08:02 98.4 F 90 16 140/79 93 Room Air 11/01/23 20:32 97.5 F L 89 18 148/89 H 95 Room Air PG Care Time/CCT Total # of Minutes Spent Total Time Spent with Patient: Total time spent is greater than 50% in coordination of care (as documented) at patient's floor/unit and/or counseling patient: Coding Level of Care Code 52796 SUB INP/OBS CARE 1/25MIN Diagnoses SBO (small bowel obstruction) K56.609
--- NOTE | 2023-11-02 09:06 | XRay Report ---
KUB HISTORY: Generalized abdominal pain COMPARISON: KUB 11/01/2023. FINDINGS: The nasogastric tube is curled within the fundus of the stomach. The lung bases are clear. Dilated gas-filled loops of small bowel bowel within the midabdomen persist measuring up to 5.7 cm. T hese are similar to the prior study. Suture material again noted within the pelvis. No renal calculi . No ureteral calculi. No pneumoperitoneum or pneumatosis. IMPRESSION: 1. Redemonstration of the high-grade small bowel obstruction. 2. Nasogastric tube terminates in the stomach. ACT 112: Negative or not required by law. Electronically signed by: Michael Alvarado M.D. 11/02/2023 9:05 AM
[2023-11-02 09:08] LABS: Albumin Globulin Ratio 1.5 (0.9-2); BUN Creatinine Ratio 32.7 (10-20); Bilirubin,Total 0.5 mg/dl (0.2-1.0); Calcium 8.4 mg/dl (8.6-10.3); Creatinine Clr Calc Pharmacy 103.3 ml/min; Est GFR (Non-African American) 107.8 ml/min; Globulin 2.6 gm/dl (2.5-4.0); Magnesium 1.8 mg/dl (1.7-2.4); Potassium 3.9 mmol/L (3.5-5.1); Total Protein 6.6 gm/dl (6.0-8.3)
[2023-11-02 09:31] LABS: Basophils # (auto) 0.03 K/uL (0.00-0.20); Basophils % (auto) 0.4 %; Eosinophils # (auto) 0.05 K/uL (0.00-0.50); Eosinophils % (auto) 0.6 %; Hematocrit (blood only) 42.2 % (37.0-47.0); Hemoglobin 14.1 g/dl (12.0-16.0); Immature Granulocytes # (auto) 0.03 K/uL (0.01-0.20); Immature Granulocytes % (auto) 0.4 %; Lymphocytes % (auto) 15.1 %; Mean Corpuscular Hemoglobin 30.5 pg (25.0-34.0); Mean Corpuscular Hgb Conc 33.4 g/dL (32.0-36.0); Mean Corpuscular Volume 91.1 fL (80.0-100.0); Mean Platelet Volume 10.6 fL (9.4-12.4); Monocytes # (auto) 0.61 K/uL (0.11-0.59); Monocytes % (auto) 7.7 %; Neutrophils # (auto) 6.02 K/uL (1.40-6.50); Neutrophils % (auto) 75.8 %; Platelet Count 294 K/uL (130-400); RDW Coefficient of Variation 14.4 % (11.5-14.5); RDW Standard Deviation 48.3 fL (36.4-46.3); Red Blood Count 4.63 M/uL (4.20-5.40); White Blood Count 7.94 K/ul (4.8-10.8)
[2023-11-02 09:36] LABS: Estimated Average Glucose 111 mg/dl; Hemoglobin A1C 5.5 % (4.5-5.6)
--- NOTE | 2023-11-02 11:39 | Hospitalist Progress Note ---
Date of Service November 02, 2023 Assessment & Plan (1) SBO (small bowel obstruction): Plan: 53 yr old M who has a significant PMH of diverticulitis complicated with abscess s/p partial colectomy in 2020, GERD, hx of depression, hx of tobacco abuse who presents to ED 2/2 abd pain x 1 day. High Grade Small bowel obstruction Hx of complicated diverticulitis with [place] [facility] [place]x of prior abd surgeries include c section, partial colectomy --CT a/p: Findings consistent with a high-grade small bowel obstruction. Several transition points in close proximity to one another within the pelvis, at/or adjacent to small bowel anastomoses. Mild swirling of the mesentery. Given the configuration, a closed loop obstruction cannot be excluded. Small amount of ascites. No pneumatosis, free air or portal venous gas. Continue conservative management Continue NPO, bowel rest, NGT Continue IVF LR @100cc/hr, IV PPI Gen surg eval and recs noted Tobacco abuse in process of quitting smoking, hasn't smoked last 2 days continue to encourage cessation prn nicotine patch DVT ppx: SQ Heparin in event surgical procedure warranted FULL CODE PCP: Dr. Dhruv Valentine Updated daughter at bedside I spent a total of 50 minutes coordinating, documenting and providing care for this patient excluding time spent in performance of separately billed services Admission and Anticipated Discharge Date Admission Date: November 01, 2023 Subjective Patient seen and examined Reports abdominal pain was severe but currently improving after getting iv dilaudid. Denied nausea, vomiting No BM or passage of flatus today. Denied fever, chills Reports mild cough. Denied chest pain or SOB Has NGT in situ to suction Physical Exam Constitutional: + well hydrated; no acute distress Eyes: PERRL, conjunctivae normal, anicteric sclerae ENMT: NGT in situ Respiratory: normal respiratory effort, lungs clear to auscultation Cardiovascular: Rate/Rhythm: regular rate and regular rhythm S1 S2 Gastrointestinal (Abdomen): Soft, +generalized tenderness, mildly distended, reduced bowel sounds Musculoskeletal: no cyanosis or clubbing, extremities motor strength 5/5 Neurologic: PERRL, EOMI, accommodation nl, no face palsy, no dysarthria Psychiatric: A+Ox3, euthymic affect Results & Data Results & Data Vital Signs (Past 12 Hours) Vital Signs Temp Pulse Resp BP Pulse Ox O2 Del Method 11/02/23 11:22 36.7 C 85 16 130/68 94 Room Air 11/02/23 08:02 36.9 C 90 16 140/79 93 Room Air Laboratory Results Abnormal lab results 11/01/23 11/02/23 Range/Units 22:20 08:04 RDW Std Deviation 48.3 H (36.4-46.3) fL [place] # (Auto) 0.61 H (0.11-0.59) K/uL Creatinine 0.55 L D (0.6-1.2) mg/dl BUN/Creatinine Ratio 32.7 H (10-20) Glucose 107 H (70-99(Fasting)) mg/dl Calcium 8.4 L D (8.6-10.3) mg/dl Ur Specific [place] > 1.045 H (1.000-1.030) Urine Protein 1+ H (Negative) Urine Ketones 1+ H (Negative) U Epithel Cells (Auto) 6-10 H (0-2) /hpf Calcium Oxalate Crystal Present A (None Prsent)
[2023-11-02] MEDS: HYDROmorphone INJ 0.5 MG/0.5 ML SYR IV PRN (15:32)
[2023-11-02 16:04] LABS: Hematocrit (blood only) 38.9 % (37.0-47.0); Hemoglobin 13.4 g/dl (12.0-16.0); Mean Corpuscular Hemoglobin 31.2 pg (25.0-34.0); Mean Corpuscular Hgb Conc 34.4 g/dL (32.0-36.0); Mean Corpuscular Volume 90.7 fL (80.0-100.0); Mean Platelet Volume 10.5 fL (9.4-12.4); Platelet Count 279 K/uL (130-400); RDW Coefficient of Variation 14.3 % (11.5-14.5); RDW Standard Deviation 47.7 fL (36.4-46.3); Red Blood Count 4.29 M/uL (4.20-5.40); White Blood Count 7.83 K/ul (4.8-10.8)
[2023-11-02] MEDS: PROMETHAZINE 12.5 MG/50.5 ML BAG IV STA (19:42)
[2023-11-02] MEDS: PANTOprazole 40 MG in SYRINGE 0 ML IV SCH (20:43)
[2023-11-03] MEDS: FAMOTIDINE 20MG IV PUSH 20 MG/5 ML SYR IV ONE (05:30)
[2023-11-03] MEDS: PROMETHAZINE 12.5 MG/50.5 ML BAG IV ONE (05:31)
[2023-11-03 07:30] LABS: Hematocrit (blood only) 36.1 % (37.0-47.0); Hemoglobin 12.3 g/dl (12.0-16.0); Mean Corpuscular Hemoglobin 31.1 pg (25.0-34.0); Mean Corpuscular Hgb Conc 34.1 g/dL (32.0-36.0); Mean Corpuscular Volume 91.4 fL (80.0-100.0); Mean Platelet Volume 10.6 fL (9.4-12.4); Platelet Count 253 K/uL (130-400); RDW Coefficient of Variation 14.1 % (11.5-14.5); RDW Standard Deviation 47.8 fL (36.4-46.3); Red Blood Count 3.95 M/uL (4.20-5.40); White Blood Count 6.61 K/ul (4.8-10.8)
[2023-11-03 08:02] LABS: BUN Creatinine Ratio 29.8 (10-20); Creatinine Clr Calc Pharmacy 120.9 ml/min; Est GFR (African American) 131.6 ml/min; Est GFR (Non-African American) 113.6 ml/min; Magnesium 1.7 mg/dl (1.7-2.4); Phosphorus 1.8 mg/dl (2.5-4.9); Potassium 3.7 mmol/L (3.5-5.1)
--- NOTE | 2023-11-03 09:28 | Surgery Progress Note ---
Date of Service November 03, 2023 Assessment & Plan (1) SBO (small bowel obstruction): Plan: con't NG await bowel function IVF Admission and Anticipated Discharge Date Admission Date: November 01, 2023 Subjective c/o pain NG in place no flatus yet Review of Systems Constitutional: no fever and no chills Respiratory: no cough and no dyspnea Cardiovascular: no chest pain Gastrointestinal: + abdominal pain and + change in bowel h abits; no nausea and no vomiting Genitourinary: no dysuria Musculoskeletal: no back pain Neurologic: no localized weakness Psychiatric: no behavioral changes Physical Exam 2 Constitutional: WD/WN, vitals as above Neck: trachea midline Respiratory: normal respiratory effort, lungs clear to auscultation Cardiovascular: RRR, no murmur, no edema Gastrointestinal (Abdomen): Inspection/Auscultation: abdomen normal to inspection, + abdomen distended and normal bowel sounds Percussion/Palpation: + abdomen tender and abdomen soft; no guarding and abdomen not rigid Musculoskeletal: Head/Neck/Chest: normocephalic and head atraumatic Skin: no rashes, warm and dry Results & Data Vital Signs (Past 12 Hours) Vital Signs Temp Pulse Pulse Resp BP BP Pulse Ox 11/03/23 07:14 36.9 C 79 16 151/81 H 97 11/02/23 21:59 36.8 C 74 18 141/91 H 94 O2 Del Method 11/03/23 07:14 Room Air 11/02/23 21:59 Room Air
[2023-11-03] MEDS ORDERED: POTASSIUM PHOS 3 MMOL/1 ML INFUSION IV STA (09:46)
[2023-11-03] MEDS: POTASSIUM PHOSPHATE 21 MMOL in SODIUM CHLORIDE 0.9% 500 ML IV ONE (10:36)
--- NOTE | 2023-11-03 10:49 | Hospitalist Progress Note ---
Date of Service November 03, 2023 Assessment & Plan (1) SBO (small bowel obstruction): Plan: 53 yr old M who has a significant PMH of diverticulitis complicated with abscess s/p partial colectomy in 2020, GERD, hx of depression, hx of tobacco abuse who presents to ED 2/2 abd pain x 1 day. High Grade Small bowel obstruction Hx of complicated diverticulitis with abscess s/p partial colectomy in 2020 at [facility] [place] Hx of prior abd surgeries include c section, partial colectomy --CT a/p: Findings consistent with a high-grade small bowel obstruction. Several transition points in close proximity to one another within the pelvis, at/or adjacent to small bowel anastomoses. Mild swirling of the mesentery. Given the configuration, a closed loop obstruction cannot be excluded. Small amount of ascites. No pneumatosis, free air or portal venous gas. Continue conservative management Continue NPO, bowel rest Has some blood tinged effluent in NGT. This may be related to NGT manipulations first night. Will monitor Continue IVF LR IV PPI BID Pain control Gen surg eval and recs noted Hypophosphatemia today. Replete and monitor Tobacco abuse in process of quitting smoking, hasn't smoked for 2 days prior to presentation continue to encourage cessation prn nicotine patch Patient reports she was supposed to get last dose of Rabies vaccine today. That she had been coming to ER to get the course after getting attacked by a stray cat I contacted our Pharmacist to confirm and order last dose DVT ppx: SQ Heparin FULL CODE PCP: Dr. Dhruv Valentine I spent a total of 50 minutes coordinating, documenting and providing care for this patient excluding time spent in performance of separately billed services Admission and Anticipated Discharge Date Admission Date: November 01, 2023 Subjective Patient seen and examined Reports severe abd pain. States pain improves with dilaudid No BM or passage of flatus today. Denied fever, chills, nausea Denied coguh, chest pain or SOB Has NGT in situ to suction. Physical Exam Constitutional: + well hydrated; no acute distress Eyes: PERRL, conjunctivae normal, anicteric sclerae ENMT: NGT in situ Respiratory: normal respiratory effort, lungs clear to auscultation Cardiovascular: Rate/Rhythm: regular rate and regular rhythm Gastrointestinal (Abdomen): Soft, mildly distended, +tender, reduced bowel sounds Musculoskeletal: no cyanosis or clubbing, extremities motor strength 5/5 Neurologic: PERRL, EOMI, accommodation nl, no face palsy, no dysarthria Psychiatric: A+Ox3, euthymic affect Results & Data Results & Data Vital Signs (Past 12 Hours) Vital Signs Temp Pulse Resp BP Pulse Ox O2 Del Method 11/03/23 07:14 36.9 C 79 16 151/81 H 97 Room Air Laboratory Results Abnormal lab results 11/02/23 11/03/23 Range/Units 15:25 06:48 RBC 3.95 L (4.20-5.40) M/uL Hct 36.1 L (37.0-47.0) % RDW Std Deviation 47.7 H 47.8 H (36.4-46.3) fL Creatinine 0.47 L (0.6-1.2) mg/dl BUN/Creatinine Ratio 29.8 H (10-20) Calcium 8.0 L (8.6-10.3) mg/dl Phosphorus 1.8 L (2.5-4.9) mg/dl
[2023-11-03] MEDS: RABIES VACC (IMOVAX) HUMAN DIPL CELL 2.5 UNITS/ML SYR IM ONE (12:24)
[2023-11-04 06:11] LABS: Hematocrit (blood only) 36.9 % (37.0-47.0); Hemoglobin 12.5 g/dl (12.0-16.0); Mean Corpuscular Hemoglobin 30.8 pg (25.0-34.0); Mean Corpuscular Hgb Conc 33.9 g/dL (32.0-36.0); Mean Corpuscular Volume 90.9 fL (80.0-100.0); Mean Platelet Volume 10.6 fL (9.4-12.4); Platelet Count 262 K/uL (130-400); RDW Coefficient of Variation 13.8 % (11.5-14.5); RDW Standard Deviation 46.4 fL (36.4-46.3); Red Blood Count 4.06 M/uL (4.20-5.40); White Blood Count 9.16 K/ul (4.8-10.8)
[2023-11-04 06:26] LABS: Calcium 8.4 mg/dl (8.6-10.3); Creatinine Clr Calc Pharmacy 135.3 ml/min; Est GFR (African American) 136.6 ml/min; Est GFR (Non-African American) 117.8 ml/min; Magnesium 1.7 mg/dl (1.7-2.4); Phosphorus 1.8 mg/dl (2.5-4.9); Potassium 3.4 mmol/L (3.5-5.1)
[2023-11-04] MEDS ORDERED: POTASSIUM PHOS 3 MMOL/1 ML INFUSION IV STA (07:28)
[2023-11-04] MEDS: POTASSIUM PHOSPHATE 21 MMOL in SODIUM CHLORIDE 0.9% 500 ML IV ONE (08:46)
--- NOTE | 2023-11-04 09:42 | Surgery Progress Note ---
Date of Service November 04, 2023 Assessment & Plan (1) SBO (small bowel obstruction): Plan: con't NG check KUB in AM adjusted pain meds hopefully NG out in AM Admission and Anticipated Discharge Date Admission Date: November 01, 2023 Subjective pain about the same some flatus small BM Review of Systems Constitutional: no fever and no chills Respiratory: no cough and no dyspnea Cardiovascular: no chest pain Gastrointestinal: + abdominal pain and + change in bowel h abits; no nausea and no vomiting Genitourinary: no dysuria Integumentary: no problem reported Neurologic: no localized weakness and no generalized weakness Psychiatric: no behavioral changes Physical Exam Constitutional: + thin Respiratory: normal respiratory effort, lungs clear to auscultation Cardiovascular: RRR, no murmur, no edema Gastrointestinal (Abdomen): Inspection/Auscultation: abdomen normal to inspection and normal bowel sounds; abdomen not distended Percussion/Palpation: + abdomen tender and abdomen soft; no guarding and abdomen not rigid Musculoskeletal: Head/Neck/Chest: normocephalic and head atraumatic Skin: no rashes, warm and dry Results & Data Vital Signs (Past 12 Hours) Vital Signs Temp Pulse Resp BP Pulse Ox O2 Del Method 11/04/23 07:51 36.8 C 91 H 18 153/81 H 97 Room Air 11/03/23 22:00 Room Air
[2023-11-04] MEDS: HYDROmorphone INJ 0.5 MG/0.5 ML SYR IV PRN (10:34)
--- NOTE | 2023-11-04 11:36 | Hospitalist Progress Note ---
Date of Service November 04, 2023 Assessment & Plan (1) SBO (small bowel obstruction): Plan: 53 yr old M who has a significant PMH of diverticulitis complicated with abscess s/p partial colectomy in 2020, GERD, hx of depression, hx of tobacco abuse who presents to ED 2/2 abd pain x 1 day. High Grade Small bowel obstruction Hx of complicated diverticulitis with abscess s/p partial colectomy in 2020 at [facility] [place] Hx of prior abd surgeries include c section, partial colectomy --CT a/p: Findings consistent with a high-grade small bowel obstruction. Several transition points in close proximity to one another within the pelvis, at/or adjacent to small bowel anastomoses. Mild swirling of the mesentery. Given the configuration, a closed loop obstruction cannot be excluded. Small amount of ascites. No pneumatosis, free air or portal venous gas. Continue conservative management Continue NPO, bowel rest Continue IVF LR IV PPI BID Pain control.IV dialuadid Freq increased by surgeon for better pain control Gen surg eval and recs noted Plan for KUB in AM. Monitor BM. If continues to improve, may dc NGT tomorrow Hypophosphatemia again today. Replete and monitor Tobacco abuse in process of quitting smoking, hasn't smoked for 2 days prior to presentation continue to encourage cessation prn nicotine patch DVT ppx: SQ Heparin FULL CODE PCP: Dr. Dhruv Valentine Updated at bedside I spent a total of 50 minutes coordinating, documenting and providing care for this patient excluding time spent in performance of separately billed services Admission and Anticipated Discharge Date Admission Date: November 01, 2023 Subjective Patient seen and examined Had a BM this AM Reports abd pain is mostly left sided today Denied any other complaints Has NGT in situ to suction. Physical Exam Constitutional: + well hydrated; no acute distress Eyes: PERRL, conjunctivae normal, anicteric sclerae ENMT: external ear and nose normal, oropharynx normal NGT in situ Respiratory: normal respiratory effort, lungs clear to auscultation Cardiovascular: Rate/Rhythm: regular rate and regular rhythm Gastrointestinal (Abdomen): Soft, mildly distended, +tender, reduced bowel sounds Musculoskeletal: no cyanosis or clubbing, extremities motor strength 5/5 Neurologic: PERRL, EOMI, accommodation nl, no face palsy, no dysarthria Psychiatric: A+Ox3, euthymic affect Results & Data Results & Data Vital Signs (Past 12 Hours) Vital Signs Temp Pulse Resp BP Pulse Ox O2 Del Method 11/04/23 07:51 36.8 C 91 H 18 153/81 H 97 Room Air Laboratory Results Abnormal lab results 11/04/23 Range/Units 05:30 RBC 4.06 L (4.20-5.40) M/uL Hct 36.9 L (37.0-47.0) % RDW Std Deviation 46.4 H (36.4-46.3) fL Potassium 3.4 L (3.5-5.1) mmol/L Anion Gap 14 H (3-11) Creatinine 0.42 L (0.6-1.2) mg/dl Calcium 8.4 L (8.6-10.3) mg/dl Phosphorus 1.8 L (2.5-4.9) mg/dl
[2023-11-05 06:37] LABS: Hematocrit (blood only) 36.9 % (37.0-47.0); Hemoglobin 12.3 g/dl (12.0-16.0); Mean Corpuscular Hemoglobin 30.4 pg (25.0-34.0); Mean Corpuscular Hgb Conc 33.3 g/dL (32.0-36.0); Mean Corpuscular Volume 91.3 fL (80.0-100.0); Mean Platelet Volume 10.5 fL (9.4-12.4); Platelet Count 259 K/uL (130-400); RDW Coefficient of Variation 13.8 % (11.5-14.5); RDW Standard Deviation 46.7 fL (36.4-46.3); Red Blood Count 4.04 M/uL (4.20-5.40); White Blood Count 8.59 K/ul (4.8-10.8)
[2023-11-05 07:03] LABS: BUN Creatinine Ratio 19.4 (10-20); Calcium 8.3 mg/dl (8.6-10.3); Creatinine Clr Calc Pharmacy 157.9 ml/min; Est GFR (African American) 143.7 ml/min; Magnesium 1.8 mg/dl (1.7-2.4); Phosphorus 1.8 mg/dl (2.5-4.9); Potassium 3.3 mmol/L (3.5-5.1)
[2023-11-05] MEDS ORDERED: POTASSIUM PHOS 3 MMOL/1 ML INFUSION IV STA (07:37)
--- NOTE | 2023-11-05 08:03 | XRay Report ---
KUB HISTORY: Small bowel obstruction. Follow-up. COMPARISON: KUB 11/02/2023. FINDINGS: Nasogastric tube terminates in the distal stomach and may be within a postpyloric position. Suture material again noted within the deep pelvis. High-grade small bowel obstruction persists with the small bowel measuring up to 6.5 cm in diameter. No renal calculi. No ureteral calculi. No pneum operitoneum or pneumatosis. IMPRESSION: 1. Nasogastric tube terminates in the distal stomach and may be within a postpyloric position. 2. High-grade small bowel obstruction again noted. ACT 112: Negative or not required by law. Electronically signed by: Michael Alvarado M.D. 11/05/2023 8:01 AM
[2023-11-05] MEDS: POTASSIUM PHOSPHATE 24 MMOL in SODIUM CHLORIDE 0.9% 500 ML IV ONE (08:16)
[2023-11-05] MEDS: BENZOCAINE/TETRACAIN/BUTAM 50 APPLN/5 GM CAN EXT PRN (11:07)
--- NOTE | 2023-11-05 12:00 | XRay Report ---
KUB HISTORY: NG tube insertion COMPARISON: KUB 11/05/2023. FINDINGS: A nasogastric tube is curled within the distal stomach. Dilated loops of small bowel persis t. The lung bases are clear. No renal calculi. No ureteral calculi. No pneumoperitoneum or pneumatos is. IMPRESSION: 1. The nasogastric tube is curled within the distal stomach. 2. Persistent small bowel dilatation consistent with a high-grade small bowel obstruction. ACT 112: Negative or not required by law. Electronically signed by: Michael Alvarado M.D. 11/05/2023 11:58 AM
--- NOTE | 2023-11-05 12:02 | Surgery Progress Note ---
Date of Service November 05, 2023 Assessment & Plan (1) SBO (small bowel obstruction): Plan: replace NG check KUB in AM adjusted pain meds Admission and Anticipated Discharge Date Admission Date: November 01, 2023 Subjective Patient seen and examined NG tube fell out last night No flatus. Continues to be bloated Physical Exam Gastrointestinal (Abdomen): Percussion/Palpation: + abdomen tender and abdomen soft; no guarding and abdomen not rigid Results & Data Vital Signs (Past 12 Hours) Vital Signs Temp Pulse Resp BP Pulse Ox O2 Del Method 11/05/23 07:00 36.7 C 124 H 18 148/94 H 95 Room Air Laboratory Results 11/05/23 Range/Units 05:54 WBC 8.59 (4.8-10.8) K/ul RBC 4.04 L (4.20-5.40) M/uL Hgb 12.3 (12.0-16.0) g/dl Hct 36.9 L (37.0-47.0) % MCV 91.3 (80.0-100.0) fL MCH 30.4 (25.0-34.0) pg MCHC 33.3 (32.0-36.0) g/dL RDW Std Deviation 46.7 H (36.4-46.3) fL RDW Coeff of Thong 13.8 (11.5-14.5) % Plt Count 259 (130-400) K/uL MPV 10.5 (9.4-12.4) fL Sodium 140 (136-145) mmol/L Potassium 3.3 L (3.5-5.1) mmol/L Chloride 105 (98-107) mmol/L Carbon Dioxide 22 (21-32) mmol/L Anion Gap 13 H (3-11) BUN 7 (6-23) mg/dl Creatinine 0.36 L (0.6-1.2) mg/dl Est Cr Clr Drug Dosing 157.9 ml/min Est GFR ( Amer) 143.7 ml/min Est GFR (Non-Af Amer) 124.0 ml/min BUN/Creatinine Ratio 19.4 (10-20) Glucose 76 (70-99(Fasting)) mg/dl Calcium 8.3 L (8.6-10.3) mg/dl Phosphorus 1.8 L (2.5-4.9) mg/dl Magnesium 1.8 (1.7-2.4) mg/dl
--- NOTE | 2023-11-05 12:12 | Hospitalist Progress Note ---
Date of Service November 05, 2023 Assessment & Plan (1) SBO (small bowel obstruction): Plan: 53 yr old M who has a significant PMH of diverticulitis complicated with abscess s/p partial colectomy in 2020, GERD, hx of depression, hx of tobacco abuse who presents to ED 2/2 abd pain x 1 day. High Grade Small bowel obstruction Hx of complicated [place]iculitis with [place] [facility] [place] of prior abd surgeries include c section, partial colectomy --CT a/p: Findings consistent with a high-grade small bowel obstruction. Several transition points in close proximity to one another within the pelvis, at/or adjacent to small bowel anastomoses. Mild swirling of the mesentery. Given the configuration, a closed loop obstruction cannot be excluded. Small amount of ascites. No pneumatosis, free air or portal venous gas. Continue conservative management Continue NPO, bowel rest Continue IVF LR IV PPI BID Reports pain is better controlled KUB today still shows persistent high grade obstruction Replace NGT Surgery on board Hypophosphatemia Continue to replete with IV and monitor Tobacco abuse in process of quitting smoking, hasn't smoked for 2 days prior to presentation continue to encourage cessation prn nicotine patch DVT ppx: SQ Heparin FULL CODE PCP: Dr. Dhruv Valentine Updated and daughter at bedside I spent a total of 40 minutes coordinating, documenting and providing care for this patient excluding time spent in performance of separately billed services Admission and Anticipated Discharge Date Admission Date: November 01, 2023 Subjective Patient seen and examined NGT fell off this AM No BM or passage of flatus today Still has abd pain Denied other complaints Physical Exam Constitutional: + well hydrated; no acute distress Eyes: PERRL, conjunctivae normal, anicteric sclerae ENMT: external ear and nose normal, oropharynx normal Respiratory: normal respiratory effort, lungs clear to auscultation Cardiovascular: Rate/Rhythm: regular rate and regular rhythm Gastrointestinal (Abdomen): Soft, +tender, reduced bowel sounds Musculoskeletal: no cyanosis or clubbing, extremities motor strength 5/5 Neurologic: PERRL, EOMI, accommodation nl, no face palsy, no dysarthria Psychiatric: A+Ox3, euthymic affect Results & Data Results & Data Vital Signs (Past 12 Hours) Vital Signs Temp Pulse Resp BP Pulse Ox O2 Del Method 11/05/23 07:00 36.7 C 124 H 18 148/94 H 95 Room Air Laboratory Results Abnormal lab results 11/05/23 Range/Units 05:54 RBC 4.04 L (4.20-5.40) M/uL Hct 36.9 L (37.0-47.0) % RDW Std Deviation 46.7 H (36.4-46.3) fL Potassium 3.3 L (3.5-5.1) mmol/L Anion Gap 13 H (3-11) Creatinine 0.36 L (0.6-1.2) mg/dl Calcium 8.3 L (8.6-10.3) mg/dl Phosphorus 1.8 L (2.5-4.9) mg/dl
--- NOTE | 2023-11-05 12:37 | XRay Report ---
KUB HISTORY: NG tube insertion COMPARISON: None. FINDINGS: Nasogastric tube terminates in the distal stomach near the pylorus. High-grade small bowel obstruction persists. No renal calculi. No ureteral calculi. No pneumoperitoneum or pneumatosis. IMPRESSION: 1. Nasogastric tube terminates at the distal stomach. 2. A high-grade small bowel obstruction persists. ACT 112: Negative or not required by law. Electronically signed by: Michael Alvarado M.D. 11/05/2023 12:36 PM
--- NOTE | 2023-11-06 07:43 | Surgery Progress Note ---
Date of Service November 06, 2023 Assessment & Plan (1) SBO (small bowel obstruction): Plan: KUB yesterday reading persistent SBO Will order SBFT in hopes contrast is therapeutic give via NGT denies flatus and bm mild abd pain, abd still mildly distended , less tender than yesterday NGT 400cc in 12hr VSS OOB ambulate today discussed above with Dr. Tomlinson , will follow Admission and Anticipated Discharge Date Admission Date: November 01, 2023 Supervising Physician Co-Signing Physician Notes Patient seen and examined, agree with above. Admitted with SBO, not much progress over the weekend. She started small bowel follow-through this morning. We await these results and likely get a KUB in the morning. If persistent obstruction then potentially take her to the OR tomorrow. Subjective pt tearful mild abd pain denies flatus or BM no n/v over NGT Review of Systems Respiratory: no dyspnea Cardiovascular: no chest pain Gastrointestinal: + bloating (less than yesterday ); no na usea and no vomiting Musculoskeletal: no muscle weakness Psychiatric: as per Subjective / HPI Physical Exam Constitutional: cooperative; no acute distress Respiratory: normal respiratory effort and able to speak in complete sentences; no respiratory distress Cardiovascular: Rate/Rhythm: regular rate Gastrointestinal (Abdomen): Inspection/Auscultation: + abdomen distended (mildly ) and + abdominal surgical scar Percussion/Palpation: + abdomen tender and abdomen soft; no guarding Psychiatric: Orientation: alert and oriented x 3 Results & Data Vital Signs (Past 12 Hours) Vital Signs Temp Pulse Resp BP Pulse Ox O2 Del Method 11/06/23 07:25 97.9 F 67 16 133/83 96 Room Air 11/05/23 20:30 98.6 F 90 18 151/87 H 96 Room Air Diagnostic Findings [facility], [place] [phone] XRay Report Patient: STEPHANIE CAMPBELL Admit Date: 11/01/23 MR#: [id number] Address[address]: [address] Acct ID:[id number] Address2: Date: 1970 [address] [facility] Zip: [place] [address] Age: 53 Location: 3W Sex: F Room/Bed: [facility] Att Phy: Katrin Otoole MD Diagnosis: high grade sbo Corie Phy: Heather Mendoza MD Service Date: 11/05/23 [facility] Phy: Interpreting Phy: Michael Alvarado MDAdmit Phy: Jorge Luis Cruz MD Ordering Phy: Katrin Otoole MD cc: ~ KUB HISTORY: NG tube insertion COMPARISON: None. FINDINGS: Nasogastric tube terminates in the distal stomach near the pylorus. High-grade small bowel obstruction persists. No renal calculi. No ureteral calculi. No pneumoperitoneum or pneumatosis. IMPRESSION: 1. Nasogastric tube terminates at the distal stomach. 2. A high-grade small bowel obstruction persists. ACT 112: Negative or not required by law. Electronically signed by: Michael Alvarado M.D. 11/05/2023 12:36 PM Dictated: 11/05/23 1235 Transcribed: 11/05/23 1235 PG Care Time/CCT Total # of Minutes Spent Total Time Spent with Patient: Total time spent is greater than 50% in coordination of care (as documented) at patient's floor/unit and/or counseling patient: Coding Level of Care Code 40628 SUB INP/OBS CARE 03/29MIN Diagnoses SBO (small bowel obstruction) K56.609
[2023-11-06 08:22] LABS: Hematocrit (blood only) 34.3 % (37.0-47.0); Hemoglobin 11.7 g/dl (12.0-16.0); Mean Corpuscular Hemoglobin 30.9 pg (25.0-34.0); Mean Corpuscular Hgb Conc 34.1 g/dL (32.0-36.0); Mean Corpuscular Volume 90.5 fL (80.0-100.0); Mean Platelet Volume 10.7 fL (9.4-12.4); Platelet Count 269 K/uL (130-400); RDW Standard Deviation 46.8 fL (36.4-46.3); Red Blood Count 3.79 M/uL (4.20-5.40); White Blood Count 8.07 K/ul (4.8-10.8)
[2023-11-06 08:53] LABS: BUN Creatinine Ratio 17.4 (10-20); Calcium 8.2 mg/dl (8.6-10.3); Creatinine Clr Calc Pharmacy 123.5 ml/min; Est GFR (African American) 132.6 ml/min; Est GFR (Non-African American) 114.4 ml/min; Magnesium 1.7 mg/dl (1.7-2.4); Phosphorus 2.7 mg/dl (2.5-4.9); Potassium 3.6 mmol/L (3.5-5.1)
--- NOTE | 2023-11-06 12:16 | Hospitalist Progress Note ---
Date of Service November 06, 2023 Assessment & Plan (1) SBO (small bowel obstruction): Plan: 53 yr old M who has a significant PMH of diverticulitis complicated with abscess s/p partial colectomy in 2020, GERD, hx of depression, hx of tobacco abuse who presents to ED 2/2 abd pain x 1 day. High Grade Small bowel obstruction Hx of complicated diverticulitis with abscess s/p partial colectomy in 2020 at [facility] [place] Hx of prior abd surgeries include c section, partial colectomy --CT a/p: Findings consistent with a high-grade small bowel obstruction. Several transition points in close proximity to one another within the pelvis, at/or adjacent to small bowel anastomoses. Mild swirling of the mesentery. Given the configuration, a closed loop obstruction cannot be excluded. Small amount of ascites. No pneumatosis, free air or portal venous gas. Continue conservative management Continue NPO, bowel rest NGT still in place Continue IVF LR IV PPI BID Surgery on board Getting SBFT today Hypophosphatemia Had been getting repletion for the past few days Phos is normal today at 2.7 Will monitor Tobacco abuse in process of quitting smoking, hasn't smoked for 2 days prior to presentation continue to encourage cessation prn nicotine patch DVT ppx: SQ Heparin FULL CODE PCP: Dr. Dhruv Valentine Updated at bedside I spent a total of 40 minutes coordinating, documenting and providing care for this patient excluding time spent in performance of separately billed services Admission and Anticipated Discharge Date Admission Date: November 01, 2023 Subjective Patient seen and examined She reports abd pain Had some nausea earlier but no vomiting No passage of flatus or BM today She reports feeling frustrated with how long it is taking with resolution of SBO Reports mild cough Physical Exam Constitutional: + well hydrated; no acute distress Eyes: PERRL, conjunctivae normal, anicteric sclerae ENMT: external ear and nose normal, oropharynx normal NGT in situ Respiratory: normal respiratory effort, lungs clear to auscultation Cardiovascular: Rate/Rhythm: regular rate and regular rhythm Gastrointestinal (Abdomen): Soft, +mild tenderness, reduced bowel sounds Musculoskeletal: no cyanosis or clubbing, extremities motor strength 5/5 Neurologic: PERRL, EOMI, accommodation nl, no face palsy, no dysarthria Psychiatric: A+Ox3, euthymic affect Results & Data Results & Data Vital Signs (Past 12 Hours) Vital Signs Temp Pulse Resp BP Pulse Ox O2 Del Method 11/06/23 07:25 36.6 C 67 16 133/83 96 Room Air Laboratory Results Abnormal lab results 11/06/23 Range/Units 07:34 RBC 3.79 L (4.20-5.40) M/uL Hgb 11.7 L (12.0-16.0) g/dl Hct 34.3 L (37.0-47.0) % RDW Std Deviation 46.8 H (36.4-46.3) fL Carbon Dioxide 20 L (21-32) mmol/L Anion Gap 15 H (3-11) Creatinine 0.46 L (0.6-1.2) mg/dl Calcium 8.2 L (8.6-10.3) mg/dl
--- NOTE | 2023-11-06 14:42 | Fluoroscopy Report ---
SMALL BOWEL FOLLOW-THROUGH WITH WATER-SOLUBLE CONTRAST CLINICAL HISTORY: SBO , please insert contrast through NGT COMPARISON STUDY: CT of the abdomen and pelvis November 01, 2023 and KUB November 05, 2023. Procedure and findings: Initially, a mortgage consultant KUB was obtained. Tip of nasogastric tube is within the di stal stomach. Small bowel dilatation was again noted. Dilute Optiray 320 was then inserted through th e nasogastric tube and small bowel follow-through was performed. These images demonstrate persistent small bowel dilatation. Imaging was carried out for 4.5 hours. Contrast did not reach the cecum. No t ransition point was identified. Given 4 1/2 hours of imaging, no further imaging was performed. The f indings indicate a persistent high-grade small bowel obstruction. IMPRESSION: Findings consistent with a persistent small bowel obstruction. Contrast did not reach th e cecum. No transition point identified. ACT 112: Negative or not required by law. Electronically signed by: Gordo Chun M.D. 11/06/2023 2:41 PM
[2023-11-06] MEDS: diphenhydrAMINE HCL 25 MG/10 ML UDC NG ONE (22:04)
[2023-11-07] MEDS: LORazepam 0.5 MG TAB SL STA (04:33)
--- NOTE | 2023-11-07 07:10 | XRay Report ---
KUB CLINICAL HISTORY: Generalized abdominal pain. Distention. FINDINGS: 2 AP, portable, supine views of the abdomen are compared to study dated 11/05/2023 and correl ated with abdominal CT dated 11/01/2023. An enteric tube is unchanged in position. Residual enteric co ntrast is seen throughout the small bowel. The small bowel loops are significantly dilated, measuring up to 7 cm in diameter. This indicates persistent small bowel obstruction. No evidence of intraperit leonard free air is identified on these supine images. Suture material projects over the pelvis. The [place] structures appear intact. IMPRESSION: Persistent high-grade small bowel obstruction. Electronically signed by: Justyn Rogel M.D. 11/07/2023 7:08 AM
[2023-11-07 07:56] LABS: Calcium 9.2 mg/dl (8.6-10.3); Creatinine Clr Calc Pharmacy 113.7 ml/min; Est GFR (Non-African American) 111.3 ml/min; Magnesium 1.6 mg/dl (1.7-2.4); Phosphorus 3.3 mg/dl (2.5-4.9); Potassium 3.2 mmol/L (3.5-5.1)
--- NOTE | 2023-11-07 08:08 | XRay Report ---
XR KUB/Abdomen 1 view CLINICAL HISTORY: eval sbo and passage of contrast TECHNIQUE: 1 view of the abdomen was obtained. Comparison: Comparison is made to abdomen radiograph 11/07/2023 FINDINGS: Enteric tube terminates in the stomach. The osseous structures are grossly unremarkable. Numerous dil ated loops of small bowel are again seen measuring up to 72 mm. IMPRESSION: Persistent high-grade small bowel obstruction. ACT 112: Negative or not required by law. Electronically signed by: Gianfranco Rice M.D. 11/07/2023 8:07 AM
[2023-11-07 09:12] LABS: Hematocrit (blood only) 42.4 % (37.0-47.0); Hemoglobin 14.8 g/dl (12.0-16.0); Mean Corpuscular Hemoglobin 30.9 pg (25.0-34.0); Mean Corpuscular Hgb Conc 34.9 g/dL (32.0-36.0); Mean Corpuscular Volume 88.5 fL (80.0-100.0); Mean Platelet Volume 10.2 fL (9.4-12.4); Platelet Count 375 K/uL (130-400); RDW Standard Deviation 45.4 fL (36.4-46.3); Red Blood Count 4.79 M/uL (4.20-5.40); White Blood Count 13.38 K/ul (4.8-10.8)
--- NOTE | 2023-11-07 11:48 | Surgery Progress Note ---
Date of Service November 07, 2023 Assessment & Plan (1) SBO (small bowel obstruction): Plan: Small bowel obstruction secondary to adhesions, no resolution with nonoperative management Plan for diagnostic laparoscopy, possible open laparotomy, lysis of adhesions, possible bowel resection Risk of the procedure were discussed to include but not limited bleeding, infection, damage to surrounding structures, need for future more extensive surgery, and the risk of anesthesia Admission and Anticipated Discharge Date Admission Date: November 01, 2023 Subjective Admitted with small bowel obstruction in setting of prior surgery for diverticulitis. Small bowel follow-through yesterday with no progression of contrast and significantly dilated bowel consistent with persistent high-grade small bowel obstruction. KUB this morning with similar findings. Still no flatus or bowel movements. Physical Exam Constitutional: WD/WN, vitals as above Respiratory: normal respiratory effort, lungs clear to auscultation Cardiovascular: RRR, no murmur, no edema Gastrointestinal (Abdomen): Inspection/Auscultation: + abdomen distended and + abdominal surgical scar Percussion/Palpation: + abdomen tender (Mild diffuse, worse in pelvis) and abdomen soft; no guarding and abdomen not rigid Results & Data Vital Signs (Past 12 Hours) Vital Signs Temp Pulse Pulse Resp BP BP Pulse Ox 11/07/23 07:50 36.9 C 128 H 126 H 16 148/98 H 93 11/07/23 07:40 93 H 11/07/23 00:15 36.8 C 94 H 18 144/84 H 94 O2 Del Method 11/07/23 07:50 Room Air 11/07/23 07:40 11/07/23 00:15 Room Air Diagnostic Findings XR KUB/Abdomen 1 view CLINICAL HISTORY: eval sbo and passage of contrast TECHNIQUE: 1 view of the abdomen was obtained. Comparison: Comparison is made to abdomen radiograph 11/07/2023 FINDINGS: Enteric tube terminates in the stomach. The osseous structures are grossly unremarkable. Numerous dilated loops of small bowel are again seen measuring up to 72 mm. IMPRESSION: Persistent high-grade small bowel obstruction. PG Care Time/CCT Total # of Minutes Spent Total Time Spent with Patient: Total time spent is greater than 50% in coordination of care (as documented) at patient's floor/unit and/or counseling patient: Coding Level of Care Code 07307 SUB INP/OBS CARE 2/35MIN Diagnoses SBO (small bowel obstruction) K56.609
[2023-11-07] MEDS: POTASSIUM CHLORIDE / WTR 10 MEQ/100 ML PLCT IV SCH ×2 (11:51→21:17)
[2023-11-07] MEDS: MAGNESIUM SULFATE / D5W 1 GM/100 ML BAG IV SCH (11:57)
--- NOTE | 2023-11-07 12:57 | Anesthesiology Consultation ---
Date of Service November 07, 2023 Assessment & Plan Chart Review Chart Review: Acceptable Risk for Surgery and Patient NOT seen in Pre Admission Testing History Surgery Operation Date: 11/07/23 13:00 Proposed Procedures p Robotic assisted Exploratory Laparoscopy, Possible Laparotomy, Possible Small Bowel Resection - Stew Tomlinson, , FACS Height/Weight Height: 5 ft 4 in Weight: 58 kg Allergies Allergy/AdvReac Type Severity Reaction Status Date / Time fluconazole Allergy Mild Rash Unverified 11/01/23 11:38 morphine Allergy Mild Hives Unverified 11/01/23 11:38 Medications Home Medications Medication Instructions Recorded Confirmed Last Taken naproxen 1 tab PO DIRECTED PRN Pain 11/01/23 11/01/23 Unknown Active Medications Generic Name Dose Route Start Last Admin Trade Name Freq PRN Reason Stop Dose Admin Benzocaine/Butamben/Tetracaine HCl 1 appln 11/05/23 10:16 11/05/23 11:07 Benzocaine/Tetracain/Butam 50 Appln/5 Gm Can EXT 12/05/23 10:15 1 appln TID PRN Administration Sore Throat Calamine/Pramoxine 1 appln 11/01/23 21:00 11/07/23 08:50 Calamine/Pramoxine Lotion 180 Appln/180 Ml Btl EXT 12/01/23 20:59 1 appln BID LINN Administration Heparin Sodium (Porcine) 5,000 units 11/01/23 21:00 11/07/23 06:32 Heparin Sod 5,000 Unit/0.5 Ml Vial SQ 12/01/23 20:59 Not Given Q8 LINN Hydromorphone HCl 0.5 mg 11/04/23 09:39 11/07/23 11:42 Hydromorphone Inj 0.5 Mg/0.5 Ml Syr IV 11/16/23 14:47 0.5 mg Q2HWA PRN Administration Pain Lactated Ringer's 1,000 mls @ 100 mls/hr 11/01/23 15:10 11/07/23 12:01 Lr IV 12/01/23 15:09 100 mls/hr .Q10H LINN Administration Pantoprazole Sodium 40 mg/ 10 mls @ 5 mls/min 11/02/23 21:00 11/07/23 08:47 Syringe IV 09/29/24 20:59 5 mls/min BID LINN Administration Potassium Chloride 10 meq in 100 mls @ 100 mls/hr 11/07/23 11:30 11/07/23 12:48 K Benedict / Wtr IV 11/07/23 15:29 Infused Q1H LINN Infusion Magnesium Sulfate/Dextrose 1 gm in 100 mls @ 50 mls/hr 11/07/23 11:30 11/07/23 12:49 Magnesium Sulfate / D5w IV 11/07/23 15:29 0 mls/hr Q2H LINN Infusion Ondansetron HCl 4 mg 11/01/23 15:10 11/06/23 19:25 Ondansetron Inj 2 Mg/Ml 2 Ml Vial IV 12/01/23 15:09 4 mg Q6H PRN Administration Nausea NPO Date Last Intake of Fluids: 11/06/23 Time Last Intake of Fluids: 23:59 Date Last Intake of Solids: 11/06/23 Time Last Intake of Solids: 23:59 Past Medical History Medical History Depression GERD (gastroesophageal reflux disease) Diverticulitis Past Family History Family History Grandmother (Maternal) Diabetes Past Surgical History Surgical History Hx of colectomy 2020 Laparoscopic partial colectomy with coloproctostomy Hx of hemorrhoidectomy Hx of tubal ligation Hx of section Social History Smoking Status: Former smoker Hx Alcohol Use: No Hx Substance Use: No Physical Exam Vital Signs Last Vital Signs Temp 36.8 C 11/07/23 11:59 Pulse 94 H 11/07/23 11:59 Resp 16 11/07/23 11:59 BP 140/92 11/07/23 11:59 Pulse Ox 94 11/07/23 11:59 O2 Del Method Room Air 11/07/23 11:59 Testing Laboratory Results 11/07/23 08:34 11/07/23 07:23 Hemoglobin A1c 5.5 % (4.5-5.6) 11/02/23 08:04 Urine Color Yellow 11/01/23 22:20 Urine Appearance Clear (Clear) 11/01/23 22:20 Urine pH 5.0 (4.5-7.5) 11/01/23 22:20 Ur Specific [place] > 1.045 (1.000-1.030) H 11/01/23 22:20 Urine Protein 1+ (Negative) H 11/01/23 22:20 Urine Glucose (UA) Negative (Negative) 11/01/23 22:20 Urine Ketones 1+ (Negative) H 11/01/23 22:20 Urine Nitrite Negative (Negative) 11/01/23 22:20 Ur Leukocyte Esterase Negative (Negative) 11/01/23 22:20 Urine WBC (Auto) 0-5 /hpf (0-5) 11/01/23 22:20 Urine RBC (Auto) 0-2 /hpf (0-2) 11/01/23 22:20 U Hyaline Cast (Auto) 0-2 /lpf (0-2) 11/01/23 22:20 U Epithel Cells (Auto) 6-10 /hpf (0-2) H 11/01/23 22:20 Urine Bacteria (Auto) None Seen (None Seen) 11/01/23 22:20
[2023-11-07] MEDS ORDERED: fentaNYL citrate PF 100 MCG/2 ML VIAL IV PRN (13:05)
[2023-11-07] MEDS ORDERED: ATROPINE SULFATE 0.1 MG/ML 10ML SYR IV PRN (13:05)
[2023-11-07] MEDS ORDERED: HYDROmorphone INJ 2 MG/ML SYR/VIAL IV PRN (13:05)
[2023-11-07] MEDS ORDERED: ePHEDrine sulfate 50 MG/ML AMP IV PRN (13:05)
[2023-11-07] MEDS ORDERED: ONDANSETRON INJ 2 MG/ML 2 ML VIAL IV PRN (13:05)
[2023-11-07] MEDS ORDERED: PROPOFOL IV EMULSION 10 MG/ML 20 ML VIAL IV ONE (13:19)
[2023-11-07] MEDS ORDERED: LIDOCAINE 2% 2 ML VIAL/AMP(20MG/ML) INFIL ONE (13:19)
[2023-11-07] MEDS ORDERED: ROCURONIUM BROMIDE 10 MG/ML 5 ML VIAL IV ONE ×2 (13:19→14:38)
[2023-11-07] MEDS ORDERED: ONDANSETRON INJ 2 MG/ML 2 ML VIAL ONE ×2 (13:19→15:27)
[2023-11-07] MEDS ORDERED: DEXAMETHASONE SOD INJ 4 MG/ML VIAL ONE (13:19)
[2023-11-07] MEDS ORDERED: fentaNYL citrate PF 100 MCG/2 ML VIAL ONE ×2 (13:20→14:03)
[2023-11-07] MEDS ORDERED: MIDAZOLAM HCL 1 MG/ML 2ML VIAL ONE (13:20)
[2023-11-07] MEDS ORDERED: SUCCINYLCHOLINE CHLORIDE 20 MG/ML 10 ML VIAL IV ONE (14:03)
[2023-11-07] MEDS: ceFAZolin 2000MG 2,000 MG/15 ML SYR IV ONE (14:03)
[2023-11-07] MEDS ORDERED: ceFAZolin 330 MG/ML 1 GM VIAL ONE (14:06)
[2023-11-07] MEDS ORDERED: PHENYLEPHRINE 100MCG/ML 10ML SYR IV ONE (14:18)
[2023-11-07] MEDS ORDERED: HYDROmorphone INJ 2 MG/ML SYR/VIAL ONE (14:30)
[2023-11-07] MEDS ORDERED: METOPROLOL TARTRATE 1 MG/ML VIAL IV ONE (14:42)
--- NOTE | 2023-11-07 14:59 | Hospitalist Progress Note ---
Date of Service November 07, 2023 Assessment & Plan (1) SBO (small bowel obstruction): Plan Pt is a 53yoF with PMhx significant for diverticulitis complicated with abscess s/p partial colectomy in 2020, GERD, hx of depression, hx of tobacco abuse who presents to ED 2/2 abd pain x 1 day. Found to have a high grade SBO. High Grade Small bowel obstruction Hx of complicated diverticulitis with abscess s/[place] partial [place] [facility] [place] of prior abd surgeries include c section, partial colectomy CT abd/pelvis noting a high-grade small bowel obstruction. Subsequent KUBs with persistent SBO General surgery consulted, recommended/stated the following: -initially recommended conservative management -However on 11/06, noted leukocytosis and tachycardia, persistent SBO on KUB -s/p diagnostic laparoscopy, lysis of adhesions, exploratory laparotomy and small bowel resection with small bowel anastomosis for bowel perforation with General Surgery on 11/07/23 -Per General surgery, consult ID given significant stool and noted exudative material intraop -IV Zosyn -IV fluids -continue NPO status Continue to monitor Sepsis Pt with new leukocytosis, tachycardia Infectious source likely bowel in setting of bowel perforation found during surgery EKG for further eval of tachycardia, likely in setting of acute infection Blood Cx x1 set pending Continue IV Zosyn General surgery requesting ID consult as above, appreciate recs Hypophosphatemia Hypokalemia Replete as needed Tobacco abuse in process of quitting smoking, hasn't smoked for 2 days prior to presentation continue to encourage cessation prn nicotine patch Diet: currently NPO DVT ppx: SQ Heparin Dispo: PT/OT for further recs once medically stable, anticipate home once medically stable Admission and Anticipated Discharge Date Admission Date: November 01, 2023 Subjective Pt was seen in the PACU. Initially right after surgery in the PACU, still under anesthesia. Then awakened and slightly confused at the time. States that did not expect all of this. Review of Systems Review of Systems: All systems reviewed & are unremarkable except as noted in Subjective Physical Exam Physical Exam: General: Alert, oriented. No acute distress, laying in stretcher Psych: Appropriate mood and affect HEENT: tube in nares Resp: no increased effort of breathing Results & Data Results & Data Vital Signs (Past 12 Hours) Vital Signs Temp Pulse Pulse Pulse Resp BP BP 11/07/23 12:50 36.2 C L 112 H 20 122/99 11/07/23 11:59 36.8 C 94 H 16 140/92 11/07/23 07:50 36.9 C 128 H 126 H 16 148/98 H 11/07/23 07:40 93 H Pulse Ox O2 Del Method 11/07/23 12:50 93 Room Air 11/07/23 11:59 94 Room Air 11/07/23 07:50 93 Room Air 11/07/23 07:40 Diagnostic Findings Abdomen/Pelvis CT 11/01/23 10:56 CT OF THE ABDOMEN AND PELVIS WITH CONTRAST CLINICAL HISTORY: Lower abdominal pain. COMPARISON STUDY: CT of the abdomen and pelvis May 05, 2020. TECHNIQUE: Following IV administration of 93 mL of Optiray, axial images of the abdomen and pelvis were obtained from the lung bases to the proximal femurs. Images were reviewed in the axial, sagittal, and coronal planes. IV contrast was administered without complication. Automated exposure control was utilized for the study. A dose lowering technique was utilized adhering to the principles of ALARA. CT DOSE: 427.28 mGy.cm FINDINGS: No pneumatosis, free air or portal venous gas is present. Liver, spleen, adrenal glands, kidneys and pancreas are unremarkable. There is no biliary or pancreatic ductal dilatation. There is no hydronephrosis. Subcentimeter hypodense left lower pole renal lesion is similar to prior CT. This is benign. The proximal to mid small bowel is moderately dilated fluid- filled. Small bowel measure up to 4.7 cm in caliber. A transition point within the upper pelvis on image 208 of 349 is noted. This is adjacent to small bowel anastomosis. Additional small bowel loops converge on this point with additional apparent transition points. There is slight swirling of the mesentery. A small amount of associated ascites is present. No bowel wall thickening is identified. 6.5 cm fundal lesion within the uterus is unchanged and favors a fibroid. IMPRESSION: 1. Findings consistent with a high-grade small bowel obstruction. Several transition points in close proximity to one another within the pelvis, at/or adjacent to small bowel anastomoses. Mild swirling of the mesentery. Given the configuration, a closed loop obstruction cannot be excluded. Small amount of ascites. No pneumatosis, free air or portal venous gas. 2. 6.5 cm fibroid. ACT 112: Negative or not required by law. Electronically signed by: Gordo Chun M.D. 11/01/2023 12:15 PM KUB X-Ray 11/01/23 14:06 KUB CLINICAL HISTORY: Enteric tube placement. FINDINGS: An AP upright view of the lower chest and upper abdomen is correlated with abdominal CT performed earlier the same day 11/01/2023. An enteric tube is in place. The tip is coiled in the distal esophagus. Excreted IV contrast is seen within the renal collecting systems. There is gaseous distention of the small bowel loops which measure up to 6 cm. This is consistent with small bowel obstruction. No intraperitoneal free air is identified below the diaphragm. The hepatic silhouette appears enlarged. The lung bases are clear as imaged. The visualized bony structures appear intact. IMPRESSION: 1. The enteric tube is coiled in the distal esophagus. Repositioning is indicated. 2. Again seen is evidence of high-grade small bowel obstruction. Electronically signed by: Justyn Rogel M.D. 11/01/2023 3:20 PM KUB X-Ray 11/01/23 15:35 KUB CLINICAL HISTORY: NG tube reposition COMPARISON STUDY: CT of the abdomen and pelvis and KUB performed earlier today. FINDINGS: The nasogastric tube has been repositioned. The tip is within the gastric fundus. The tip is well-positioned. Multiple dilated loops of small bowel are again noted. Contrast within the collecting systems from recent contrast-enhanced CT is present. IMPRESSION: Well-positioned nasogastric tube. Tip within the gastric fundus. ACT 112: Negative or not required by law. Electronically signed by: Gordo Chun M.D. 11/01/2023 3:58 PM KUB X-Ray 11/02/23 03:52 KUB HISTORY: Generalized abdominal pain COMPARISON: KUB 11/01/2023. FINDINGS: The nasogastric tube is curled within the fundus of the stomach. The lung bases are clear. Dilated gas-filled loops of small bowel bowel within the midabdomen persist measuring up to 5.7 cm. These are similar to the prior study. Suture material again noted within the pelvis. No renal calculi. No ureteral calculi. No pneumoperitoneum or pneumatosis. IMPRESSION: 1. Redemonstration of the high-grade small bowel obstruction. 2. Nasogastric tube terminates in the stomach. ACT 112: Negative or not required by law. Electronically signed by: Michael Alvarado M.D. 11/02/2023 9:05 AM KUB X-Ray 11/05/23 07:00 KUB HISTORY: Small bowel obstruction. Follow-up. COMPARISON: KUB 11/02/2023. FINDINGS: Nasogastric tube terminates in the distal stomach and may be within a postpyloric position. Suture material again noted within the deep pelvis. High- grade small bowel obstruction persists with the small bowel measuring up to 6.5 cm in diameter. No renal calculi. No ureteral calculi. No pneumoperitoneum or pneumatosis. IMPRESSION: 1. Nasogastric tube terminates in the distal stomach and may be within a postpyloric position. 2. High-grade small bowel obstruction again noted. ACT 112: Negative or not required by law. Electronically signed by: Michael Alvarado M.D. 11/05/2023 8:01 AM KUB X-Ray 11/05/23 11:35 KUB HISTORY: NG tube insertion COMPARISON: KUB 11/05/2023. FINDINGS: A nasogastric tube is curled within the distal stomach. Dilated loops of small bowel persist. The lung bases are clear. No renal calculi. No ureteral calculi. No pneumoperitoneum or pneumatosis. IMPRESSION: 1. The nasogastric tube is curled within the distal stomach. 2. Persistent small bowel dilatation consistent with a high-grade small bowel obstruction. ACT 112: Negative or not required by law. Electronically signed by: Michael Alvarado M.D. 11/05/2023 11:58 AM KUB X-Ray 11/05/23 12:12 KUB HISTORY: NG tube insertion COMPARISON: None. FINDINGS: Nasogastric tube terminates in the distal stomach near the pylorus. High-grade small bowel obstruction persists. No renal calculi. No ureteral calculi. No pneumoperitoneum or pneumatosis. IMPRESSION: 1. Nasogastric tube terminates at the distal stomach. 2. A high-grade small bowel obstruction persists. ACT 112: Negative or not required by law. Electronically signed by: Michael Alvarado M.D. 11/05/2023 12:36 PM Small Bowel X-Ray 11/06/23 07:35 SMALL BOWEL FOLLOW-THROUGH WITH WATER-SOLUBLE CONTRAST CLINICAL HISTORY: SBO , please insert contrast through NGT COMPARISON STUDY: CT of the abdomen and pelvis November 01, 2023 and KUB November 05, 2023. Procedure and findings: Initially, a medical anthropology director KUB was obtained. Tip of nasogastric tube is within the distal stomach. Small bowel dilatation was again noted. Dilute Optiray 320 was then inserted through the nasogastric tube and small bowel follow-through was performed. These images demonstrate persistent small bowel dilatation. Imaging was carried out for 4.5 hours. Contrast did not reach the cecum. No transition point was identified. Given 4 1/2 hours of imaging, no further imaging was performed. The findings indicate a persistent high-grade small bowel obstruction. IMPRESSION: Findings consistent with a persistent small bowel obstruction. Contrast did not reach the cecum. No transition point identified. ACT 112: Negative or not required by law. Electronically signed by: Gordo Chun M.D. 11/06/2023 2:41 PM KUB X-Ray 11/07/23 00:23 KUB CLINICAL HISTORY: Generalized abdominal pain. Distention. FINDINGS: 2 AP, portable, supine views of the abdomen are compared to study dated 11/05/2023 and correlated with abdominal CT dated 11/01/2023. An enteric tube is unchanged in position. Residual enteric contrast is seen throughout the small bowel. The small bowel loops are significantly dilated, measuring up to 7 cm in diameter. This indicates persistent small bowel obstruction. No evidence of intraperitoneal free air is identified on these supine images. Suture material projects over the pelvis. The bony structures appear intact. IMPRESSION: Persistent high-grade small bowel obstruction. Electronically signed by: Justyn Rogel M.D. 11/07/2023 7:08 AM KUB X-Ray 11/07/23 06:00 XR KUB/Abdomen 1 view CLINICAL HISTORY: eval sbo and passage of contrast TECHNIQUE: 1 view of the abdomen was obtained. Comparison: Comparison is made to abdomen radiograph 11/07/2023 FINDINGS: Enteric tube terminates in the stomach. The osseous structures are grossly unremarkable. Numerous dilated loops of small bowel are again seen measuring up to 72 mm. IMPRESSION: Persistent high-grade small bowel obstruction. ACT 112: Negative or not required by law. Electronically signed by: Gianfranco Rice M.D. 11/07/2023 8:07 AM
[2023-11-07] MEDS: BUPIVACAINE LIPOSOME 1.3% 266 MG/20 ML VIAL ONE (15:00)
[2023-11-07] MEDS: BUPIVACAINE 0.5 % 5 MG/1 ML MPF 30ML VIAL ONE (15:22)
[2023-11-07] MEDS ORDERED: SUGAMMADEX SODIUM 200 MG/2 ML VIAL IV ONE (15:27)
--- NOTE | 2023-11-07 15:55 | Operative Report ---
PG Post Operative Report Pre & Post Diagnosis Operation Date: 11/07/23 13:00 Pre-Op Diagnosis: high grade small bowel obstruction Post-Op Diagnosis: high grade small bowel obstruction, bowel perforation I identified the patient and participated in the time-out.: Yes Procedure Operation Date: 11/07/23 13:00 Actual Procedures p diagnostic laparoscopy, lysis of adhesions, exploratory laparotomy, Small Bowel Resection with small bowel anastomosis- Stew Tomlinson DO, FACS Surgeon Stew Tomlinson DO, VALDEMAR Reject Opener And Filler Shwetha Gallardo Estimated Blood Loss 20 Findings Consistent with Post-Op Diagnosis Diagnostic laparoscopy revealed dilated bowel with fibrinous exudate and reactive fluid in the abdomen. Was able to identify a single adhesive band as the source of obstruction. This was lysed. During further examination there was evidence of possible perforation we converted to open. This appeared to represent a closed-loop obstruction with 2 areas of contained perforation on the mesenteric side of the bowel. Small bowel resection was performed and [id number] functional end-to-end anastomosis was performed. Abdomen irrigated, Exparel injected, GILBERTO drain placed. Specimens Small bowel resection Peritoneal fluid for culture Anesthesia Type General Complications none Disposition Accompanied Patient To Recovery: No Disposition: Recovery Room Indications 53-year-old female with history of prior partial colectomy presented with signs and symptoms of a small bowel obstruction. She was treated with nonoperative management, however showed failure to progress. She underwent a small bowel follow-through which showed persistent high-grade small bowel obstruction. She was taken to the operating room for diagnostic laparoscopy, possible open laparotomy, lysis of adhesions, and possible bowel resection. The risks of the procedure were discussed, all questions were answered, and the patient agreed to proceed with surgery as planned. Description of Procedure The patient was properly identified, consented, and taken to the operating room where she was placed in the supine position. General endotracheal anesthesia was induced. A laboy catheter, an NG tube, SCDs and a safety belt were placed. Preoperative antibiotics were administered. The patient's abdomen was prepped and draped in the standard sterile fashion. Surgical timeout was performed and all parties were in agreement that this was the correct patient and procedure to be performed and we continued as planned. An incision was made in the right upper quadrant and the Veress needle was inserted. Saline drop test confirmed entry into the peritoneum. The abdomen was insufflated with carbon dioxide which the patient tolerated without incident. The abdomen was then entered using the Optiview technique and a 8 mm robotic trocar and a 5 mm 30 degree scope. The introducer was removed and the laparoscope was inserted and no damage from initial trocar or Veress needle placement was noted. There is significantly dilated bowel in the upper abdomen. There was reactive fluid and fibrinous exudate throughout the abdomen. This fluid was sent for culture. There was no gross stool or succus present. 8 mm robotic ports were then placed along the right side of the abdomen. The patient was placed in the Trendelenburg position and rotated to the right. The bowel was observed from the dilated portion to what appeared to be the site of obstruction in the central lower abdomen. There was decompressed bowel coming out of an area of tethered bowel. We were able to run this to the terminal ileum. And then return to that site and we were able to identify a single tight band causing the point of obstruction. The bowel appeared viable and showed no signs of ischemia or obvious perforation at this point. The band was lysed with a pair of endoscopic scissors with care not to damage the bowel. We then gently tease the bowel away from the site and there was a densely adhesed area. As we broke this adhesion up it was obvious that this was a contained perforation along the mesenteric border of the bowel. We then elected to convert to open. A midline laparotomy incision was made around the umbilicus. The fascia was opened and the abdomen explored. I began by running the bowel from the ligament of Treitz distally. We were able to identify the site of the of obstruction from the tight band that had been lysed previously. The bowel distal to this was the area where the perforation occurred. There was another area consistent with the band indicating that this was a closed-loop obstruction. There were 2 small sites of perforation on the mesenteric edge of the bowel in this loop. These appear to be subacute and had been walled off by the body indicating a contained perforation which was consistent with her findings during laparoscopy. The pull sucker was inserted and several liters of succus was drained from the proximal small bowel. We then ran the remainder of the bowel ensuring no further spillage of enteric contents. This was completed down to the terminal ileum. The colon was observed and there was no evidence of damage to the colon and the anastomosis appeared intact. I then proceeded to perform a small bowel resection. We took approximate 20-30 cm of bowel both proximal and distal to the site of the obstruction. Windows were created in the mesentery and the bowel was divided with a 60 mm purple load stapler. The LigaSure was then used to divide the mesentery. This bowel was sent to pathology as specimen. We then performed a czhn-cw-cvan functional end-to-end anastomosis. Corner of the staple line on the antimesenteric portion of the small bowel was excised creating enterotomies in both the proximal and distal limb. A 60 mm purple load stapler was then used to create the anastomosis with sequential fires x 2. The common enterotomy and previous staple line were then excised using 60 mm purple load staplers. The anastomosis was then oversewn with 3-0 Vicryl interrupted Lembert sutures. The mesenteric defect was closed with a 2-0 Vicryl suture. The bowel appeared to be viable with good blood supply and no evidence of leak. The anastomosis was palpable and patent. The bowel was again run and there was no evidence of further injury to the bowel or other abnormalities. No significant adhesions. Hemostasis was confirmed and the abdomen was irrigated with several liters of saline. A 10 mm flat GILBERTO drain was placed in the pelvis and exited through one of the trocar sites. This was secured into place with a 2-0 nylon suture. The fascia was then closed with #1 PDS x 2. 0.5% Marcaine mixed with Exparel was injected along the fascia and skin incision. The wound was irrigated. The skin was then closed with hayley. The other port sites were closed with hayley. Sterile dressing was applied. The patient was extubated in the operating room and taken to the PACU where she recovered without apparent incident. All sponge, instrument and needle counts were correct at the conclusion of the procedure. The patient tolerated the procedure well. The nurse practitioner was present and scrubbed for the entirety of the case. She was critical in positioning the patient, prepping and draping, retraction and exposure, driving the laparoscope, resection of the bowel, creation of the anastomosis, closure of the fascia and incisions, and placement of the dressings. I attest to the content of the Intraoperative Record and any orders documented therein. Any exceptions are noted below.
--- NOTE | 2023-11-07 16:49 | Anesthesiology Progress Note ---
Date of Service November 07, 2023 Anesthesia Post Procedure Vital Signs Vital Signs: Temp Pulse Pulse Pulse Resp BP BP 11/07/23 16:40 121 H 17 124/77 11/07/23 16:30 120 H 16 141/90 H 11/07/23 16:25 36.7 C 120 H 19 141/97 H 11/07/23 16:15 116 H 17 139/84 11/07/23 16:05 117 H 15 135/98 11/07/23 15:55 110 H 18 144/100 H 11/07/23 15:48 37.0 C 107 H 15 132/89 11/07/23 12:50 36.2 C L 112 H 20 122/99 11/07/23 11:59 36.8 C 94 H 16 140/92 11/07/23 07:50 36.9 C 128 H 126 H 16 148/98 H 11/07/23 07:40 93 H 11/07/23 00:15 36.8 C 94 H 18 144/84 H 11/06/23 19:55 36.7 C 75 18 143/89 H Pulse Ox O2 Del Method O2 Flow Rate 11/07/23 16:40 94 Nasal Cannula 2 11/07/23 16:30 92 Room Air 0 11/07/23 16:25 92 Room Air 0 11/07/23 16:15 90 Room Air 0 11/07/23 16:05 97 Oxymask 4 11/07/23 15:55 94 Oxymask 4 11/07/23 15:48 92 Oxymask 4 11/07/23 12:50 93 Room Air 11/07/23 11:59 94 Room Air 11/07/23 07:50 93 Room Air 11/07/23 07:40 11/07/23 00:15 94 Room Air 11/06/23 19:55 96 Room Air Pain Intensity Abdomen: Pain Intensity: 10 Transfer of Care Handoff Completed per policy Notes Mental Status: alert / awake / arousable and participated in evaluation Patient Amnestic to Procedure: Yes Nausea / Vomiting: adequately controlled Pain: adequately controlled Airway Patency, RR, SpO2: stable & adequate BP & HR: stable & adequate Hydration State: stable & adequate Anesthetic Complications: no major complications apparent and Pt Satisfied with anesthetic care
[2023-11-07] MEDS ORDERED: ACETAMINOPHEN 1,000 MG/100 ML VIAL IV PRN (17:24)
[2023-11-07] MEDS: 4.5GM X1 IV ONE (17:49)
[2023-11-07] MEDS: HYDROmorphone INJ 0.5 MG/0.5 ML SYR IV PRN (19:59)
[2023-11-07] MEDS: LACTATED RINGER'S 1,000 ML IV ONE (20:04)
[2023-11-07] MEDS: ACETAMINOPHEN 1,000 MG/100 ML VIAL IV STA (20:10)
[2023-11-07] MEDS: POTASSIUM CHLORIDE PWD 20 MEQ PACK PO STA (20:32)
[2023-11-07] MEDS: LACTATED RINGER'S 1,000 ML IV SCH (22:20)
[2023-11-08] MEDS: PIPERACILLIN/TAZOBACTAM 4.5 GM/100 ML BAG IV SCH (00:38)
[2023-11-08] MEDS: HYDROmorphone INJ 0.5 MG/0.5 ML SYR IV PRN (00:56)
--- NOTE | 2023-11-08 08:11 | Surgery Progress Note ---
Date of Service November 08, 2023 Assessment & Plan (1) S/P small bowel resection: Plan: POD 1 Laparotomy, Small Bowel Resection, Lysis of Adhesions Pt awake , daughter in room pain controlled/tolerated with meds denies SOB, CP, midline incision CDI , GILBERTO drain serous fluid 25cc o/p in 12 hr tachycardiac , labs pending Continue IV zosyn , ID consult , culture sent to lab intraoperative pending requesting ice chips -ok otherwise remain NPO with NGT to LIWS continue to monitor urine output Admission and Anticipated Discharge Date Admission Date: November 01, 2023 Supervising Physician Co-Signing Physician Notes Patient seen and examined, labs reviewed, agree with above. POD #1 diagnostic laparoscopy with lysis of adhesions, conversion to open laparotomy with resection of small bowel for perforation secondary to closed-loop obstruction with anastomosis. Doing well, abdomen is sore from surgery, but feels better than it did prior to the surgery. She has not passed any flatus. She has not been up and walking around. Afebrile, mild tachycardia since surgery, improving. Normotensive. Abdomen soft, dressing clean dry and intact, appropriately tender to palpation. GILBERTO minimal serosanguineous fluid. Iniguez catheter with pink hue concerning for hematuria. WBC 21, other labs unremarkable. Will continue NG tube to low intermittent wall suction, await return of bowel function. Continue antibiotics for perforation. Send urine for UA. Out of bed to chair, ambulation, I-S. Restart subcu heparin Subjective pain controlled with prn medication deneies CP, SOB, Fever, chills Review of Systems Constitutional: no fever and no chills Respiratory: + cough; no dyspnea Cardiovascular: no chest pain Gastrointestinal: + abdominal pain and + bloating; no naus ea and no vomiting Physical Exam Constitutional: cooperative and comfortable; no acute distress Respiratory: normal respiratory effort and able to speak in complete sentences; no respiratory distress Cardiovascular: Rate/Rhythm: + tachycardic (123) Gastrointestinal (Abdomen): Inspection/Auscultation: + abdomen distended, + abdominal surgical incision (CDI) and + abdominal surgical drain present (serous fluid) Results & Data Vital Signs (Past 12 Hours) Vital Signs Temp Pulse Resp BP Pulse Ox O2 Del Method O2 Flow Rate 11/08/23 07:58 98.2 F 75 16 138/87 98 Nasal Cannula 1 11/08/23 03:43 98.4 F 122 H 18 137/84 93 Nasal Cannula 1 11/07/23 23:49 98.4 F 116 H 18 116/76 94 Room Air 11/07/23 20:12 97.9 F 127 H 18 135/88 94 Nasal Cannula 2 PG Care Time/CCT Total # of Minutes Spent Total Time Spent with Patient: Total time spent is greater than 50% in coordination of care (as documented) at patient's floor/unit and/or counseling patient: Coding Level of Care Code 60855 Post Operative Follow-Up Diagnoses S/P small bowel resection Z90.49
[2023-11-08 08:23] LABS: Albumin Globulin Ratio 1.4 (0.9-2); BUN Creatinine Ratio 22.7 (10-20); Bilirubin,Total 1.2 mg/dl (0.2-1.0); Creatinine Clr Calc Pharmacy 129.2 ml/min; Est GFR (African American) 134.5 ml/min; Est GFR (Non-African American) 116.1 ml/min; Globulin 2.2 gm/dl (2.5-4.0); Magnesium 1.8 mg/dl (1.7-2.4); Phosphorus 2.1 mg/dl (2.5-4.9); Total Protein 5.2 gm/dl (6.0-8.3)
[2023-11-08 08:37] LABS: Basophils # (auto) 0.14 K/uL (0.00-0.20); Basophils % (auto) 0.6 %; Echinocytes 1+; Hematocrit (blood only) 39.5 % (37.0-47.0); Hemoglobin 13.7 g/dl (12.0-16.0); Immature Granulocytes # (auto) 0.28 K/uL (0.01-0.20); Immature Granulocytes % (auto) 1.3 %; Lymphocytes # (auto) 0.78 K/uL (1.20-3.40); Lymphocytes % (auto) 3.6 %; Mean Corpuscular Hemoglobin 31.1 pg (25.0-34.0); Mean Corpuscular Hgb Conc 34.7 g/dL (32.0-36.0); Mean Corpuscular Volume 89.6 fL (80.0-100.0); Mean Platelet Volume 9.8 fL (9.4-12.4); Monocytes # (auto) 0.72 K/uL (0.11-0.59); Monocytes % (auto) 3.3 %; Neutrophils # (auto) 19.64 K/uL (1.40-6.50); Neutrophils % (auto) 91.2 %; Platelet Count 388 K/uL (130-400); RDW Coefficient of Variation 14.5 % (11.5-14.5); RDW Standard Deviation 46.5 fL (36.4-46.3); Red Blood Count 4.41 M/uL (4.20-5.40); Toxic Granulation 1+; Toxic Vacuolation 1+; White Blood Count 21.56 K/ul (4.8-10.8)
[2023-11-08] MEDS: ACETAMINOPHEN 1,000 MG/100 ML VIAL IV SCH (09:16)
[2023-11-08] MEDS ORDERED: SODIUM PHOSPHATE 3 MMOL/1 ML INFUSION IV STA (10:43)
--- NOTE | 2023-11-08 10:54 | Electrocardiogram Report ---
Test Reason : Blood Pressure : */* mmHG Vent. Rate : 116 BPM Atrial Rate : 116 BPM P-R Int : 136 ms QRS Dur : 80 ms QT Int : 326 ms P-R-T Axes : 74 65 43 degrees QTcB Int : 453 ms Sinus tachycardia Right atrial enlargement Borderline ECG When compared with ECG of 07-Nov-2023 18:35, (unconfirmed) No significant change was found Confirmed by Raphael Alonso ([id number]) on 11/08/2023 10:53:44 AM Referred By: REFERRED SELF Confirmed By: Raphael Alonso
--- NOTE | 2023-11-08 11:05 | Electrocardiogram Report ---
Test Reason : Blood Pressure : */* mmHG Vent. Rate : 124 BPM Atrial Rate : 124 BPM P-R Int : 152 ms QRS Dur : 90 ms QT Int : 320 ms P-R-T Axes : 73 54 28 degrees QTcB Int : 459 ms Sinus tachycardia Biatrial enlargement Abnormal ECG When compared with ECG of 07-Nov-2023 18:35, (unconfirmed) No significant change was found Confirmed by Raphael Alonso ([id number]) on 11/08/2023 11:04:34 AM Referred By: REFERRED SELF Confirmed By: Raphael Alonso
[2023-11-08] MEDS: SODIUM PHOSPHATE 15 MMOL in SODIUM CHLORIDE 0.9% 250 ML IV ONE (11:45)
--- NOTE | 2023-11-08 11:45 | Hospitalist Progress Note ---
Date of Service November 08, 2023 Assessment & Plan (1) SBO (small bowel obstruction): Plan Pt is a 53yoF with PMhx significant for diverticulitis complicated with abscess s/p partial colectomy in 2020, GERD, hx of depression, hx of tobacco abuse who presents to ED 2/2 abd pain x 1 day. Found to have a high grade SBO. High Grade Small bowel obstruction Hx of complicated diverticulitis with abscess s/p partial colectomy in 2020 at [facility] Hx of prior abd surgeries include c section, partial colectomy CT abd/pelvis noting a high-grade small bowel obstruction. Subsequent KUBs with persistent SBO General surgery consulted, recommended/stated the following: -initially recommended conservative management -However on 11/06, noted leukocytosis and tachycardia, persistent SBO on KUB -s/p diagnostic laparoscopy, lysis of adhesions, exploratory laparotomy and small bowel resection with small bowel anastomosis for bowel perforation with General Surgery on 11/07/23 -Per General surgery, consult ID given significant stool and noted exudative material intraop -IV Zosyn -IV fluids -continue NPO status Continue to monitor Sepsis, not POA Pt with new leukocytosis, tachycardia Infectious source likely bowel in setting of bowel perforation found during surgery EKG for further eval of tachycardia, likely in setting of acute infection Intraop culture growing gram neg bacilli currently Blood Cx x1 set NGTD Continue IV Zosyn ID consult as above, appreciate recs. Recommended/stated the following: "I agree with the primary team on IV piperacillin tazobactam for now. We will follow up on the peritoneal fluid culture and adjust antibiotics as needed. If the surgical team performed a very good washout during the ex lap on 11/06 and suspect no residual infection, she will likely require a short course of antibiotics not exceeding 14 days (to be administered as IV while inpatient and step-down to oral as outpatient based on susceptibilities)." Received one dose of empiric vancomycin with IV Zosyn before ID consult Continue IV Zosyn per ID recs, follow cultures Continue to monitor Hematuria Possible UTI Pt with pink-tinged urine output from laboy UA with 1+ blood, 0-2 RBCs Urine cx pending Consider Urology followup Hypophosphatemia Hypokalemia Replete as needed Tobacco abuse in process of quitting smoking, hasn't smoked for 2 days prior to presentation continue to encourage cessation prn nicotine patch Diet: currently NPO DVT ppx: SQ Heparin Dispo: PT/OT for further recs once medically stable, anticipate home once medically stable Admission and Anticipated Discharge Date Admission Date: November 01, 2023 Subjective Pt was seen laying in bed, NG tube in nares. Also oxygen on face. tearful at times, asking about prognosis. States she is hungry, would like to eat. Ronny called and updated. Review of Systems Review of Systems: All systems reviewed & are unremarkable except as noted in Subjective Physical Exam Physical Exam: General: Alert, oriented. No acute distress Psych: Appropriate mood and affect HEENT: NG tube in nares, NC in place Resp: no increased effort of breathing CV: RRR Abdomen: bandages in place Extremities: No edema Results & Data Results & Data Vital Signs (Past 12 Hours) Vital Signs Temp Pulse Pulse Resp BP Pulse Ox O2 Del Method 11/08/23 11:15 36.5 C 106 H 16 130/80 94 Nasal Cannula 11/08/23 07:58 36.8 C 123 H 16 138/87 94 Nasal Cannula 11/08/23 03:43 36.9 C 122 H 18 137/84 93 Nasal Cannula 11/07/23 23:49 36.9 C 116 H 18 116/76 94 Room Air O2 Flow Rate 11/08/23 11:15 1 11/08/23 07:58 1 11/08/23 03:43 1 11/07/23 23:49
[2023-11-08] MEDS ORDERED: VANCOMYCIN CONSULT ACTIVE PRN (11:46)
[2023-11-08] MEDS ORDERED: VANCOMYCIN HCL 1,500 MG in SODIUM CHLORIDE 0.9% 500 ML IV ONE (11:46)
[2023-11-08] MEDS ORDERED: VANCOMYCIN HCL 750 MG in SODIUM CHLORIDE 0.9% 500 ML IV SCH (12:00)
[2023-11-08] MEDS: VANCOMYCIN HCL 1,250 MG in SODIUM CHLORIDE 0.9% 250 ML IV STA (12:48)
--- NOTE | 2023-11-08 13:43 | Infectious Disease Consult ---
Date of Service November 08, 2023 Telehealth Information I performed this visit using a real-time telehealth connection between my location and the patients location ([facility]). After connecting through interactive tele-video, patient was identified by name and date of and/or wristband check.Patient (or authorized healthcare primary care sales representative) was informed that this was a telemedicine visit and it was being conducted confidentially over secure lines. My office door was closed and no one else was present in the room with me.Patient (or authorized healthcare primary care sales representative) provided consent to proceed with the visit, expressed an understanding of privacy and security of the telemedicine visit, and gave permission to have a hospital primary care sales representative in the room in order to assist with the visit and to conduct portions of the visit, as needed. I informed the patient (or authorized healthcare primary care sales representative) that I reviewed their record and presented the opportunity for them to ask any questions regarding the visit today. The patient agreed to participate. Assessment & Plan (1) Peritonitis, acute generalized: (2) Bowel perforation: (3) SBO (small bowel obstruction): (4) Status post exploratory laparotomy: (5) S/P small bowel resection: Plan I agree with the primary team on IV piperacillin tazobactam for now. We will follow up on the peritoneal fluid culture and adjust antibiotics as needed. If the surgical team performed a very good washout during the ex lap on 11/06 and suspect no residual infection, she will likely require a short course of antibiotics not exceeding 14 days (to be administered as IV while inpatient and step-down to oral as outpatient based on susceptibilities). Thank you for consulting Infectious Disease. We will continue to follow. History of Present Illness History of Present Illness Ms. Spencre is a 53-year-old woman with medical history of diverticulitis complicated with abscess status post partial colectomy in 2020, GERD and major depressive disorder who was admitted to [facility] on 11/01/2023 because of abdominal pain and was found to have small-bowel obstruction. She was seen by the surgical team and was initially being treated conservatively. However, because of failure to respond to non operative management, she was taken to OR on 11/06 and underwent ex lap with lysis of adhesions as well as small-bowel resection with small bowel anastomosis. During the operation, she was noticed to have bowel perforation. Peritoneal fluid obtained during the washout has been growing Gram-negative bacilli yet to be speciated. Id team was consulted for further recommendations and to help guide antibiotic treatment. Allergies Allergy/AdvReac Type Severity Reaction Status Date / Time fluconazole Allergy Mild Rash Unverified 11/01/23 11:38 morphine Allergy Mild Hives Unverified 11/01/23 11:38 Home Medications Medication Instructions Recorded Confirmed Type naproxen 1 tab PO DIRECTED PRN Pain 11/01/23 11/01/23 History Patient History Medical History Depression GERD (gastroesophageal reflux disease) Diverticulitis Surgical History Hx of colectomy 2020 Laparoscopic partial colectomy with coloproctostomy Hx of hemorrhoidectomy Hx of tubal ligation Hx of section Family History Grandmother (Maternal) Diabetes Social History Smoking Status: Former smoker Tobacco Type: Cigarettes Hx Alcohol Use: No Hx Substance Use: No Preferred Language: [place] Communication Ability: Effective [place] Required: No Beliefs That Will Affect Care: None marital status: Current Living Situation: Spouse and Family current occupational status: employed Feels Safe at Home: Yes Assistive Devices: None Review of Systems Neg except for what was mentioned in H&P. Physical Exam Couldn't be obtained as the visit was via telemed. Results & Data Vital Signs (Past 12 Hours) Vital Signs Temp Pulse Pulse Resp BP Pulse Ox O2 Del Method 11/08/23 11:15 36.5 C 106 H 16 130/80 94 Nasal Cannula 11/08/23 07:58 36.8 C 123 H 16 138/87 94 Nasal Cannula 11/08/23 03:43 36.9 C 122 H 18 137/84 93 Nasal Cannula O2 Flow Rate 11/08/23 11:15 1 11/08/23 07:58 1 11/08/23 03:43 1 Laboratory Results Microbiology: 11/06: 1 set of blood culture pending 11/06: Peritoneal fluid culture growing Gram-negative bacilli
[2023-11-08 16:07] LABS: Appearance Urine Cloudy (Clear); Bilirubin Urine 1+ (Negative); Blood Urine 1+ (Negative); Color Urine Yellow; Glucose Urine UA Negative (Negative); Ketones Urine 1+ (Negative); Leukocyte Esterase Urine Negative (Negative); Nitrite Urine Negative (Negative); Protein Urine 1+ (Negative); Specific Gravity Urine >= 1.030 (1.000-1.030); Urobilinogen Urine Negative (Negative); pH Urine 5.5 (4.5-7.5)
[2023-11-08 16:36] LABS: Epithelial Cell Urine 0-2 /hpf (0-2); RBC Urine 0-2 /hpf (0-2)
[2023-11-08 16:37] LABS: WBC Urine 0-5 /hpf (0-5)
[2023-11-08 16:38] LABS: Bacteria Urine 1+ (None Seen)
--- NOTE | 2023-11-08 18:44 | XRay Report ---
XR chest 1V portable HISTORY: 53 years-old Female hypoxia acute hypoxia COMPARISON: KUB 11/07/2023. TECHNIQUE: AP view of the chest FINDINGS: Chronic silhouette is normal. No pneumothorax or pleural effusion. Mild bibasilar densities, likely a telectatic. Mild pulmonary emphysema. Bones appear grossly intact. Enteric tube courses into the stom ach with distal tip outside the [id number]. IMPRESSION: 1. Mild bibasilar opacities suggest atelectasis. 2. Pulmonary emphysema. 3. Enteric tube courses into the stomach. ACT 112: Negative or not required by law. The above report was generated using voice recognition software. It may contain grammatical, syntax o r spelling errors. Electronically signed by: Ángel Newell M.D. 11/08/2023 6:43 PM
[2023-11-08] MEDS ORDERED: VANCOMYCIN HCL 1,000 MG in SODIUM CHLORIDE 0.9% 250 ML IV SCH (20:00)
[2023-11-09 06:16] LABS: Basophils # (auto) 0.04 K/uL (0.00-0.20); Basophils % (auto) 0.2 %; Eosinophils # (auto) 0.06 K/uL (0.00-0.50); Eosinophils % (auto) 0.4 %; Hematocrit (blood only) 33.4 % (37.0-47.0); Hemoglobin 11.5 g/dl (12.0-16.0); Immature Granulocytes # (auto) 0.18 K/uL (0.01-0.20); Immature Granulocytes % (auto) 1.1 %; Lymphocytes # (auto) 0.95 K/uL (1.20-3.40); Lymphocytes % (auto) 5.8 %; Mean Corpuscular Hemoglobin 30.8 pg (25.0-34.0); Mean Corpuscular Hgb Conc 34.4 g/dL (32.0-36.0); Mean Corpuscular Volume 89.5 fL (80.0-100.0); Mean Platelet Volume 10.1 fL (9.4-12.4); Monocytes # (auto) 0.49 K/uL (0.11-0.59); Neutrophils # (auto) 14.58 K/uL (1.40-6.50); Neutrophils % (auto) 89.5 %; Platelet Count 324 K/uL (130-400); RDW Coefficient of Variation 14.5 % (11.5-14.5); RDW Standard Deviation 47.2 fL (36.4-46.3); Red Blood Count 3.73 M/uL (4.20-5.40)
[2023-11-09 06:26] LABS: Albumin Globulin Ratio 1.1 (0.9-2); Albumin Level 2.5 gm/dl (3.4-5.0); BUN Creatinine Ratio 22.9 (10-20); Bilirubin,Total 0.6 mg/dl (0.2-1.0); Calcium 7.5 mg/dl (8.6-10.3); Creatinine Clr Calc Pharmacy 162.4 ml/min; Est GFR (Non-African American) 125.1 ml/min; Globulin 2.2 gm/dl (2.5-4.0); Magnesium 1.6 mg/dl (1.7-2.4); Total Protein 4.7 gm/dl (6.0-8.3)
--- NOTE | 2023-11-09 08:16 | Surgery Progress Note ---
Date of Service November 09, 2023 Assessment & Plan (1) Status post exploratory laparotomy: Plan: POD 2 exlap, small bowel resection, lysis of adhesions, abdominal washout -WBC 16 (21), Hbg 11, Vitals stable and pt afebrile -NGT in place with nasal tape off nose. She is adamantly refusing me to re- secure it at this time as she is hoping it will fall out on its own if we don't order to remove it I tried to reassure patient that she just underwent major surgery, has a new small bowel anastomosis, and we do not want to mismanage her and compromise her healing. We would recommend continuing the NGT for now from surgical standpoint until she is having more meaningful bowel function as she has not truly started passing flatus yet -Pt reports burning of stomach on dilaudid. She is on BID protonix. Her Tylenol has been made standing. She has an allergy to morphine. Hopefully can adjust meds once she is taking orals. However at this time her pain is controlled -Urine appears more yellow in canister, remains with a pink tinge in tubing. Urine Cx pending -Continue IV abx per ID recommendations -GILBERTO drain serous, continue to change gauze dressing as needed to prevent saturation of gown/linens -Pt will benefit from getting OOB and ambulating. PT/OT. Pulmonary toilet -Appreciate medical assistance with patient (2) Bowel perforation: Admission and Anticipated Discharge Date Admission Date: November 01, 2023 Supervising Physician Co-Signing Physician Notes Patient seen and examined, labs reviewed, agree with above. POD #2 diagnostic laparoscopy with lysis of adhesions, conversion to open laparotomy with resection of small bowel for perforation secondary to closed-loop obstruction with anastomosis. Doing well, abdomen is sore from surgery, but feels better than it did prior to the surgery. She has not passed any flatus, but is feeling hungry and feels like she will pass gas or have a bowel movement soon. Afebrile, vital signs normal and stable, Abdomen soft, dressing clean dry and intact, appropriately tender to palpation, incision with hayley. GILBERTO minimal serosanguineous fluid, leaking around drain site. Iniguez catheter with as clear. WBC 16 down from 21, other labs unremarkable. We discussed clamping of the NG versus removal. She is adamant she wants the NG tube removed and I think this is reasonable given her significant improvement over the past day since surgery. She understands that she can have some clear liquids but is advised to take it slow. We will DC the Iniguez catheter. Continue the GILBERTO drain for now. Await full return of bowel function. Continue antibiotics. Dr. Gilbert covering over the weekend. Subjective Patient upset this AM. Voicing complaints regarding NGT and wanting it out, GILBERTO drain leaking and saturating her gown/bedding multiple times, dilaudid causing her burning of the stomach, longevity of her hospitalization, & she is very hungry. She reports pain is overall controlled. Denies nausea/vomiting. Has not yet passed flatus, but feels the urge to do so and may happen soon. Has not been out of bed much yet. Physical Exam Physical Exam: awake, alert, emotionally upset Constitutional: well developed and well nourished Respiratory: normal respiratory effort Gastrointestinal (Abdomen): Inspection/Auscultation: + abdomen distended (mild), + abdominal surgical incision (c/d/i with midline hayley) and + abdominal surgical drain present (serous) Percussion/Palpation: abdomen soft; abdomen nontender (no significant tenderness to palpation ) NGT bilious in nature, 600cc documented in chart since 6pm Results & Data Vital Signs (Past 12 Hours) Vital Signs Temp Pulse Resp BP Pulse Ox O2 Del Method 11/08/23 22:18 98.2 F 97 H 16 142/85 H 95 Room Air 11/08/23 21:00 Room Air PG Care Time/CCT Total # of Minutes Spent Total Time Spent with Patient: Total time spent is greater than 50% in coordination of care (as documented) at patient's floor/unit and/or counseling patient: Coding Level of Care Code 20324 Post Operative Follow-Up Diagnoses Status post exploratory laparotomy Z98.890 Bowel perforation K63.1
[2023-11-09] MEDS ORDERED: POTASSIUM PHOS 3 MMOL/1 ML INFUSION IV STA (08:44)
[2023-11-09] MEDS: POTASSIUM CHLORIDE / WTR 10 MEQ/100 ML PLCT IV SCH (10:04)
[2023-11-09] MEDS: MAGNESIUM SULFATE / D5W 1 GM/100 ML BAG IV SCH (10:11)
--- NOTE | 2023-11-09 11:49 | Hospitalist Progress Note ---
Date of Service November 09, 2023 Assessment & Plan (1) SBO (small bowel obstruction): Plan Pt is a 53yoF with PMhx significant for diverticulitis complicated with abscess s/p partial colectomy in 2020, GERD, hx of depression, hx of tobacco abuse who presents to ED 2/2 abd pain x 1 day. Found to have a high grade SBO. High Grade Small bowel obstruction Hx of complicated diverticulitis with abscess s/p partial colectomy in 2020 at [facility] [place] Hx of prior abd surgeries include c section, partial colectomy CT abd/pelvis noting a high-grade small bowel obstruction. Subsequent KUBs with persistent SBO General surgery consulted, recommended/stated the following: -initially recommended conservative management -However on 11/06, noted leukocytosis and tachycardia, persistent SBO on KUB -s/p diagnostic laparoscopy, lysis of adhesions, exploratory laparotomy and small bowel resection with small bowel anastomosis for bowel perforation with General Surgery on 11/07/23 -Per General surgery, consult ID given significant stool and noted exudative material intraop -IV Zosyn -IV fluids -continue NPO status 11/08-Currently advancing diet as tolerated, NG tube out. Continue to monitor Sepsis, not POA Pt with new leukocytosis, tachycardia Infectious source likely bowel in setting of bowel perforation found during surgery EKG for further eval of tachycardia, likely in setting of acute infection Intraop culture Klebsiella oxytoca currently Blood Cx x1 set NGTD Continue IV Zosyn ID consult as above, appreciate recs. Recommended/stated the following: "I agree with the primary team on IV piperacillin tazobactam for now. We will follow up on the peritoneal fluid culture and adjust antibiotics as needed. If the surgical team performed a very good washout during the ex lap on 11/06 and suspect no residual infection, she will likely require a short course of antibiotics not exceeding 14 days (to be administered as IV while inpatient and step-down to oral as outpatient based on susceptibilities)." Received one dose of empiric vancomycin with IV Zosyn before ID consult Continue IV Zosyn per ID recs, follow cultures Continue to monitor Hematuria Pt with pink-tinged urine output from laboy UA with 1+ blood, 0-2 RBCs Urine cx no sig growth to date Consider Urology followup Hypophosphatemia Hypokalemia Replete as needed Tobacco abuse in process of quitting smoking, hasn't smoked for 2 days prior to presentation continue to encourage cessation prn nicotine patch Diet: advancing diet as tolerated DVT ppx: SQ Heparin Dispo: PT/OT for further recs once medically stable, anticipate home once medically stable Admission and Anticipated Discharge Date Admission Date: November 01, 2023 Subjective pt was seen with at bedside. Pleasantly frustrated. States she is very hungry, wants the NG tube removed. States pain is well controlled. has been up and walking with a walker. notes she is "almost" passing gas, states it is "right there". Review of Systems Review of Systems: All systems reviewed & are unremarkable except as noted in Subjective Physical Exam Physical Exam: General: Alert, oriented. No acute distress Psych: Appropriate mood and affect HEENT: NG tube in nares Resp: no increased effort of breathing CV: RRR Abdomen: bandages in place, appropriately tender Extremities: No edema Results & Data Results & Data Vital Signs (Past 12 Hours) Vital Signs Temp Pulse Resp BP Pulse Ox O2 Del Method 11/09/23 07:58 36.7 C 90 16 136/77 96 Room Air
[2023-11-09] MEDS: POTASSIUM PHOSPHATE 21 MMOL in SODIUM CHLORIDE 0.9% 500 ML IV ONE (12:22)
[2023-11-09] MEDS ORDERED: oxyCODONE HCL IR 5 MG TAB (IMMEDIATE RELEASE) PO PRN (13:35)
[2023-11-09] MEDS: KETOROLAC TROMETHAMINE 15 MG/ML VIAL IV SCH (15:10)
[2023-11-09] MEDS ORDERED: Nursing to Pharmacy Communication SCH (17:15)
--- NOTE | 2023-11-10 05:13 | Surgery Progress Note ---
Date of Service November 10, 2023 Assessment & Plan (1) Bowel perforation: Plan: Patient is status post exploratory laparotomy with small bowel resection on 11/07/2023 (postoperative day #3) Continue analgesics as needed Continue antiemetics as needed Continue patient on clear liquids; consideration may be given to advancing diet further today if her abdominal exam remains benign Peritoneal fluid at time of operation is growing Klebsiella Continue antibiotics in the form of Zosyn Maintain GILBERTO drain Check a.m. labs unavailable Subcutaneous heparin is in place for DVT prevention doing ok with ngt out. issac clears. continue clears today. if doing ok will consider full liquids tomorrow Admission and Anticipated Discharge Date Admission Date: November 01, 2023 Subjective Patient is currently resting comfortably in bed. She notes that she has tolerated clears without exacerbating any abdominal pain. She denies any nausea or vomiting. She notes over the past 24 hours she has had a bowel movement. Physical Exam Gastrointestinal (Abdomen): Abdomen is soft and nondistended. There is minimal pain with palpation. There is no rebound tenderness or guarding.GILBERTO drain is in place draining serosanguineous fluid (85 cc noted over the past shift). Results & Data Vital Signs (Past 12 Hours) Vital Signs Temp Pulse Resp BP Pulse Ox O2 Del Method 11/09/23 21:21 37.4 C 96 H 16 134/78 95 Room Air PG Care Time/CCT Total # of Minutes Spent Total Time Spent with Patient: Total time spent is greater than 50% in coordination of care (as documented) at patient's floor/unit and/or counseling patient: Coding Level of Care Code 84854 Post Operative Follow-Up Diagnoses Bowel perforation K63.1
[2023-11-10 05:53] LABS: Basophils # (auto) 0.03 K/uL (0.00-0.20); Basophils % (auto) 0.2 %; Eosinophils # (auto) 0.04 K/uL (0.00-0.50); Eosinophils % (auto) 0.3 %; Hematocrit (blood only) 31.4 % (37.0-47.0); Hemoglobin 10.5 g/dl (12.0-16.0); Immature Granulocytes # (auto) 0.11 K/uL (0.01-0.20); Immature Granulocytes % (auto) 0.8 %; Lymphocytes # (auto) 1.01 K/uL (1.20-3.40); Lymphocytes % (auto) 7.3 %; Mean Corpuscular Hemoglobin 30.3 pg (25.0-34.0); Mean Corpuscular Hgb Conc 33.4 g/dL (32.0-36.0); Mean Corpuscular Volume 90.5 fL (80.0-100.0); Monocytes # (auto) 0.56 K/uL (0.11-0.59); Neutrophils # (auto) 12.15 K/uL (1.40-6.50); Neutrophils % (auto) 87.4 %; Platelet Count 305 K/uL (130-400); RDW Coefficient of Variation 14.6 % (11.5-14.5); RDW Standard Deviation 48.5 fL (36.4-46.3); Red Blood Count 3.47 M/uL (4.20-5.40)
[2023-11-10 06:05] LABS: Albumin Globulin Ratio 1.1 (0.9-2); Albumin Level 2.5 gm/dl (3.4-5.0); BUN Creatinine Ratio 13.5 (10-20); Bilirubin,Total 0.4 mg/dl (0.2-1.0); Calcium 7.5 mg/dl (8.6-10.3); Creatinine Clr Calc Pharmacy 153.6 ml/min; Est GFR (African American) 142.4 ml/min; Est GFR (Non-African American) 122.9 ml/min; Globulin 2.2 gm/dl (2.5-4.0); Magnesium 1.8 mg/dl (1.7-2.4); Phosphorus 2.9 mg/dl (2.5-4.9); Potassium 2.8 mmol/L (3.5-5.1); Total Protein 4.7 gm/dl (6.0-8.3)
[2023-11-10] MEDS: POTASSIUM CHLORIDE CRTAB 20 MEQ TABCR PO STA (09:15)
--- NOTE | 2023-11-10 14:26 | Hospitalist Progress Note ---
Date of Service November 10, 2023 Assessment & Plan (1) SBO (small bowel obstruction): Plan Pt is a 53yoF with PMhx significant for diverticulitis complicated with abscess s/p partial colectomy in 2020, GERD, hx of depression, hx of tobacco abuse who presents to ED 2/2 abd pain x 1 day. Found to have a high grade SBO. High Grade Small bowel obstruction Hx of complicated diverticulitis with abscess s/p partial colectomy in 2020 at [facility] [place] Hx of prior abd surgeries include c section, partial colectomy CT abd/pelvis noting a high-grade small bowel obstruction. Subsequent KUBs with persistent SBO General surgery consulted, recommended/stated the following: -initially recommended conservative management -However on 11/06, noted leukocytosis and tachycardia, persistent SBO on KUB -s/p diagnostic laparoscopy, lysis of adhesions, exploratory laparotomy and small bowel resection with small bowel anastomosis for bowel perforation with General Surgery on 11/07/23 -Per General surgery, consult ID given significant stool and noted exudative material intraop -IV Zosyn -IV fluids - NPO status 11/08-Currently advancing diet as tolerated, NG tube out. 11/09-tolerating clears Continue to monitor Sepsis, not POA Pt with new leukocytosis, tachycardia Infectious source likely bowel in setting of bowel perforation found during surgery EKG for further eval of tachycardia, likely in setting of acute infection Intraop culture Klebsiella oxytoca currently Blood Cx x1 set NGTD Continue IV Zosyn ID consult as above, appreciate recs. Recommended/stated the following: "I agree with the primary team on IV piperacillin tazobactam for now. We will follow up on the peritoneal fluid culture and adjust antibiotics as needed. If the surgical team performed a very good washout during the ex lap on 11/06 and suspect no residual infection, she will likely require a short course of antibiotics not exceeding 14 days (to be administered as IV while inpatient and step-down to oral as outpatient based on susceptibilities)." Received one dose of empiric vancomycin with IV Zosyn before ID consult Continue IV Zosyn per ID recs, follow cultures Continue to monitor Hematuria Pt with pink-tinged urine output from laboy UA with 1+ blood, 0-2 RBCs Urine cx no sig growth to date Consider Urology followup Hypophosphatemia Hypokalemia Replete as needed Tobacco abuse in process of quitting smoking, hasn't smoked for 2 days prior to presentation continue to encourage cessation prn nicotine patch Diet: advancing diet as tolerated DVT ppx: SQ Heparin Dispo: PT/OT for further recs once medically stable, anticipate home once me dically stable Admission and Anticipated Discharge Date Admission Date: November 01, 2023 Subjective pt was seen in the AM. Pleasant, states tolerating clears. Had BM. Abd pain improving. Review of Systems Review of Systems: All systems reviewed & are unremarkable except as noted in Subjective Physical Exam Physical Exam: General: Alert, oriented. No acute distress Psych: Appropriate mood and affect HEENT:NC/AT Resp: no increased effort of breathing CV: RRR Abdomen: bandages in place, appropriately tender Extremities: No edema Results & Data Results & Data Vital Signs (Past 12 Hours) Vital Signs Temp Pulse Resp BP Pulse Ox O2 Del Method 11/10/23 08:00 Room Air 11/10/23 07:20 36.9 C 86 16 130/77 94 Room Air
[2023-11-10] MEDS: ACETAMINOPHEN 500 MG TAB PO PRN (15:14)
[2023-11-10] MEDS: THIAMINE HCL 100 MG in SYRINGE 9 ML IV SCH (21:02)
[2023-11-10] MEDS: POTASSIUM CHLORIDE CRTAB 20 MEQ TABCR PO SCH (21:18)
[2023-11-10] MEDS: ZOLPIDEM TARTRATE 5 MG TAB PO STA (21:57)
[2023-11-10] MEDS: MELATONIN 3 MG TAB PO PRN (22:46)
[2023-11-10] MEDS: diphenhydrAMINE 50 MG/ML VIAL IV STA (22:46)
--- NOTE | 2023-11-11 05:31 | Surgery Progress Note ---
Date of Service November 11, 2023 Assessment & Plan (1) Bowel perforation: Plan: Patient is status post exploratory laparotomy with small bowel resection on 11/07/2023 (postoperative day #4) Continue analgesics as needed Continue antiemetics as needed Continue patient on clear liquids; consideration may be given to advancing diet further if she continues to have bowel function and her appetite improves Peritoneal fluid at time of operation has been noted to have grown Klebsiella Continue antibiotics in the form of Zosyn Maintain GILBERTO drain Check a.m. labs unavailable Continue mobilization efforts Subcutaneous heparin is in place for DVT prevention as above. +bm yesterday. no nausea. issac clears will advance to full liquids d/c planning next 24-48 hours Admission and Anticipated Discharge Date Admission Date: November 01, 2023 Subjective Patient is resting comfortably in bed. She notes that she continues to have bowel movements and passed flatus. She denies any nausea or vomiting and is tolerating clears. She does admit to some intermittent bloating when she consumes clear liquids. She does note some abdominal soreness near her incision. In addition the patient was concerned that she developed a rash on her back last evening. This seems to have abated for the most part. Physical Exam Gastrointestinal (Abdomen): Abdomen is soft and nonrigid with minimal distention. There is appropriate tenderness near surgical incision. Her incision is clean, dry, and intact with hayley. GILBERTO drain is draining serous fluid and has drained approximately 200 cc over the past 24 hours. Results & Data Vital Signs (Past 12 Hours) Vital Signs Temp Pulse Resp BP Pulse Ox O2 Del Method 11/10/23 21:23 36.7 C 78 18 127/84 96 Room Air 11/10/23 19:57 Room Air PG Care Time/CCT Total # of Minutes Spent Total Time Spent with Patient: Total time spent is greater than 50% in coordination of care (as documented) at patient's floor/unit and/or counseling patient: Coding Level of Care Code 39200 Post Operative Follow-Up Diagnoses Bowel perforation K63.1
[2023-11-11 06:11] LABS: Basophils # (auto) 0.03 K/uL (0.00-0.20); Basophils % (auto) 0.2 %; Eosinophils # (auto) 0.07 K/uL (0.00-0.50); Eosinophils % (auto) 0.5 %; Hematocrit (blood only) 30.2 % (37.0-47.0); Hemoglobin 10.5 g/dl (12.0-16.0); Immature Granulocytes % (auto) 0.8 %; Lymphocytes # (auto) 0.88 K/uL (1.20-3.40); Lymphocytes % (auto) 6.8 %; Mean Corpuscular Hemoglobin 30.7 pg (25.0-34.0); Mean Corpuscular Hgb Conc 34.8 g/dL (32.0-36.0); Mean Corpuscular Volume 88.3 fL (80.0-100.0); Mean Platelet Volume 10.1 fL (9.4-12.4); Monocytes # (auto) 0.92 K/uL (0.11-0.59); Monocytes % (auto) 7.1 %; Neutrophils # (auto) 10.91 K/uL (1.40-6.50); Neutrophils % (auto) 84.6 %; Platelet Count 332 K/uL (130-400); RDW Coefficient of Variation 14.6 % (11.5-14.5); RDW Standard Deviation 47.9 fL (36.4-46.3); Red Blood Count 3.42 M/uL (4.20-5.40); White Blood Count 12.91 K/ul (4.8-10.8)
[2023-11-11 06:25] LABS: Albumin Globulin Ratio 1.1 (0.9-2); Albumin Level 2.6 gm/dl (3.4-5.0); BUN Creatinine Ratio 14.7 (10-20); Bilirubin,Total 0.4 mg/dl (0.2-1.0); Calcium 7.5 mg/dl (8.6-10.3); Creatinine Clr Calc Pharmacy 167.1 ml/min; Est GFR (African American) 146.4 ml/min; Est GFR (Non-African American) 126.3 ml/min; Globulin 2.4 gm/dl (2.5-4.0); Magnesium 1.7 mg/dl (1.7-2.4); Phosphorus 3.2 mg/dl (2.5-4.9); Potassium 2.7 mmol/L (3.5-5.1)
[2023-11-11] MEDS: POTASSIUM CHLORIDE CRTAB 20 MEQ TABCR PO SCH (08:55)
[2023-11-11] MEDS: CALCIUM CARBONATE 1,250 MG/5 ML UDC PO SCH (09:13)
[2023-11-11] MEDS: CALCIUM GLUCONATE 1,000 MG/60 ML BAG IV SCH (10:23)
--- NOTE | 2023-11-11 12:59 | Hospitalist Progress Note ---
Date of Service November 11, 2023 Assessment & Plan (1) SBO (small bowel obstruction): Plan Pt is a 53yoF with PMhx significant for diverticulitis complicated with abscess s/p partial colectomy in 2020, GERD, hx of depression, hx of tobacco abuse who presents to ED 2/2 abd pain x 1 day. Found to have a high grade SBO. High Grade Small bowel obstruction Hx of complicated diverticulitis with abscess s/p partial colectomy in 2020 at [facility] [place] Hx of prior abd surgeries include c section, partial colectomy CT abd/pelvis noting a high-grade small bowel obstruction. Subsequent KUBs with persistent SBO General surgery consulted, recommended/stated the following: -initially recommended conservative management -However on 11/06, noted leukocytosis and tachycardia, persistent SBO on KUB -s/p diagnostic laparoscopy, lysis of adhesions, exploratory laparotomy and small bowel resection with small bowel anastomosis for bowel perforation with General Surgery on 11/07/23 -Per General surgery, consult ID given significant stool and noted exudative material intraop -IV Zosyn -IV fluids - NPO status 11/08-Currently advancing diet as tolerated, NG tube out. 11/09-tolerating clears 11/10-stable, improving Continue to monitor Sepsis, not POA Pt with new leukocytosis, tachycardia Infectious source likely bowel in setting of bowel perforation found during surgery EKG for further eval of tachycardia, likely in setting of acute infection Intraop culture Klebsiella oxytoca currently Blood Cx x1 set NGTD Continue IV Zosyn ID consult as above, appreciate recs. Recommended/stated the following: "I agree with the primary team on IV piperacillin tazobactam for now. We will follow up on the peritoneal fluid culture and adjust antibiotics as needed. If the surgical team performed a very good washout during the ex lap on 11/06 and suspect no residual infection, she will likely require a short course of antibiotics not exceeding 14 days (to be administered as IV while inpatient and step-down to oral as outpatient based on susceptibilities)." Received one dose of empiric vancomycin with IV Zosyn before ID consult Continue IV Zosyn per ID recs, follow cultures Continue to monitor Hematuria Pt with pink-tinged urine output from laboy UA with 1+ blood, 0-2 RBCs Urine cx no sig growth to date Consider Urology followup Hypophosphatemia Hypokalemia Hypocalcemia Replete as needed Tobacco abuse in process of quitting smoking, hasn't smoked for 2 days prior to presentation continue to encourage cessation prn nicotine patch Diet: advancing diet as tolerated DVT ppx: SQ Heparin Dispo: anticipate home once medically stable Admission and Anticipated Discharge Date Admission Date: November 01, 2023 Subjective pt was seen sitting in chair at bedside. States that she has been passing gas all day and moving "turds". Per nursing she has also been ambulating in the hallway and doing self care, declines need for PT/OT eval. Tolerating clears and had her diet advanced to full. Anxious for discharge Review of Systems Review of Systems: All systems reviewed & are unremarkable except as noted in Subjective Physical Exam Physical Exam: General: Alert, oriented. No acute distress Psych: Appropriate mood and affect HEENT:NC/AT Resp: no increased effort of breathing CV: RRR Abdomen: bandages in place, appropriately tender Extremities: No edema Results & Data Results & Data Vital Signs (Past 12 Hours) Vital Signs Temp Pulse Resp BP Pulse Ox O2 Del Method 11/11/23 08:45 Room Air 11/11/23 07:41 37.0 C 84 16 138/82 96 Room Air
[2023-11-12 06:53] LABS: Basophils # (auto) 0.06 K/uL (0.00-0.20); Basophils % (auto) 0.4 %; Eosinophils # (auto) 0.13 K/uL (0.00-0.50); Eosinophils % (auto) 0.9 %; Hematocrit (blood only) 32.4 % (37.0-47.0); Hemoglobin 10.8 g/dl (12.0-16.0); Immature Granulocytes # (auto) 0.22 K/uL (0.01-0.20); Immature Granulocytes % (auto) 1.5 %; Lymphocytes # (auto) 1.38 K/uL (1.20-3.40); Lymphocytes % (auto) 9.5 %; Mean Corpuscular Hemoglobin 30.3 pg (25.0-34.0); Mean Corpuscular Hgb Conc 33.3 g/dL (32.0-36.0); Mean Platelet Volume 10.2 fL (9.4-12.4); Monocytes # (auto) 1.17 K/uL (0.11-0.59); Neutrophils # (auto) 11.59 K/uL (1.40-6.50); Neutrophils % (auto) 79.7 %; Platelet Count 366 K/uL (130-400); RDW Coefficient of Variation 14.9 % (11.5-14.5); RDW Standard Deviation 49.9 fL (36.4-46.3); Red Blood Count 3.56 M/uL (4.20-5.40); White Blood Count 14.55 K/ul (4.8-10.8)
[2023-11-12 07:09] LABS: Albumin Level 2.7 gm/dl (3.4-5.0); BUN Creatinine Ratio 12.1 (10-20); Bilirubin,Total 0.4 mg/dl (0.2-1.0); Creatinine Clr Calc Pharmacy 172.2 ml/min; Est GFR (African American) 147.9 ml/min; Est GFR (Non-African American) 127.6 ml/min; Globulin 2.7 gm/dl (2.5-4.0); Magnesium 1.7 mg/dl (1.7-2.4); Phosphorus 3.5 mg/dl (2.5-4.9); Potassium 3.8 mmol/L (3.5-5.1); Total Protein 5.4 gm/dl (6.0-8.3)
[2023-11-12 07:17] VITALS: O2SAT 97
--- NOTE | 2023-11-12 09:50 | Surgery Progress Note ---
Date of Service November 12, 2023 Assessment & Plan (1) Status post exploratory laparotomy: Plan: Patient is status post exploratory laparotomy with small bowel resection on 11/07/2023 (postoperative day #5) No n/v , +bm , some bloating WBC elevated to 14 (12) continue IV antibiotics, VSS afebrile appreciate ID recommendations for in house and on D/C GILBERTO drain serous fluid hayley midline , mild erythema to left abdomen tolerating fulls will advance to low fiber Admission and Anticipated Discharge Date Admission Date: November 01, 2023 Supervising Physician Co-Signing Physician Notes Patient seen examined, labs reviewed, agree with above. Status post laparoscopic lysis of adhesions with conversion to open for findings of contained perforation and a closed-loop obstruction, small bowel resection with anastomosis. Doing well, tolerated full liquids, had large loose bowel movement yesterday. Afebrile with stable vitals. Incision without infection. Abdomen slightly distended, but soft, appropriately tender to palpation. WBC 14.5 up from 12.9. She was advanced to low fiber diet and she just tolerated lunch. We will continue low fiber, continue ambulation out of bed to chair. Potential discharge tomorrow if WBC downtrending and tolerates diet. May need further imaging if WBC continues to climb. Subjective +bms +flatus pain tolerable getting up to wash hair ambulating in halls Review of Systems Constitutional: no fever Respiratory: no dyspnea Cardiovascular: no chest pain Gastrointestinal: + bloating; no nausea and no vomiting Musculoskeletal: no muscle weakness Physical Exam Constitutional: cooperative and comfortable; no acute distress Respiratory: normal respiratory effort and able to speak in complete sentences; no respiratory distress Cardiovascular: Rate/Rhythm: regular rate Gastrointestinal (Abdomen): Inspection/Auscultation: + abdomen distended, + abdominal surgical incision (CDI , hayley midline , mild erythema surrounding left side ) and + abdominal surgical drain present Percussion/Palpation: abdomen soft Results & Data Vital Signs (Past 12 Hours) Vital Signs Temp Pulse Resp BP Pulse Ox O2 Del Method 11/12/23 07:12 98.1 F 79 16 137/87 97 Room Air 11/11/23 21:59 98.2 F 86 16 156/89 H 96 Room Air Results CBC w Diff Results: RBC 3.56 M/uL (4.20-5.40) L 11/12/23 WBC 14.55 K/ul (4.8-10.8) H 11/12/23 Hgb 10.8 g/dl (12.0-16.0) L 11/12/23 Hct 32.4 % (37.0-47.0) L 11/12/23 MCV 91.0 fL (80.0-100.0) 11/12/23 MCH 30.3 pg (25.0-34.0) 11/12/23 MCHC 33.3 g/dL (32.0-36.0) 11/12/23 RDW Standard Deviation 49.9 fL (36.4-46.3) H 11/12/23 RDW Coefficient of Variation 14.9 % (11.5-14.5) H 11/12/23 Plt Count 366 K/uL (130-400) 11/12/23 MPV 10.2 fL (9.4-12.4) 11/12/23 Neutrophils (%) (Auto) 79.7 % 11/12/23 Lymphocytes (%) (Auto) 9.5 % 11/12/23 Monocytes # (Auto) 1.17 K/uL (0.11-0.59) H 11/12/23 Eosinophils # (Auto) 0.13 K/uL (0.00-0.50) 11/12/23 Immature Granulocyte % (Auto) 1.5 % 11/12/23 Neutrophils # (Auto) 11.59 K/uL (1.40-6.50) H 11/12/23 Lymphocytes # (Auto) 1.38 K/uL (1.20-3.40) 11/12/23 Monocytes # (Auto) 1.17 K/uL (0.11-0.59) H 11/12/23 Eosinophils # (Auto) 0.13 K/uL (0.00-0.50) 11/12/23 Basophils # (Auto) 0.06 K/uL (0.00-0.20) 11/12/23 Immature Granulocyte # (Auto) 0.22 K/uL (0.01-0.20) H 11/11 Echinocytes 1+ 11/08/23 Toxic Granulation 1+ 11/08/23 Toxic Vacuolation 1+ 11/08/23 PG Care Time/CCT Total # of Minutes Spent Total Time Spent with Patient: Total time spent is greater than 50% in coordination of care (as documented) at patient's floor/unit and/or counseling patient: Coding Level of Care Code 97328 Post Operative Follow-Up Diagnoses Status post exploratory laparotomy Z98.890
[2023-11-12] MEDS: POTASSIUM CHLORIDE CRTAB 20 MEQ TABCR PO SCH (14:47)
--- NOTE | 2023-11-12 15:56 | Hospitalist Progress Note ---
Date of Service November 12, 2023 Assessment & Plan (1) SBO (small bowel obstruction): Plan Pt is a 53yoF with PMhx significant for diverticulitis complicated with abscess s/p partial colectomy in 2020, GERD, hx of depression, hx of tobacco abuse who presents to ED 2/2 abd pain x 1 day. Found to have a high grade SBO. High Grade Small bowel obstruction Hx of complicated diverticulitis with abscess [place] [address] [facility] [place] of prior abd surgeries include c section, partial colectomy CT abd/pelvis noting a high-grade small bowel obstruction. Subsequent KUBs with persistent SBO General surgery consulted, recommended/stated the following: -initially recommended conservative management -However on 11/06, noted leukocytosis and tachycardia, persistent SBO on KUB -s/p diagnostic laparoscopy, lysis of adhesions, exploratory laparotomy and small bowel resection with small bowel anastomosis for bowel perforation with General Surgery on 11/07/23 -Per General surgery, consult ID given significant stool and noted exudative material intraop -IV Zosyn -IV fluids - NPO status 11/08-Currently advancing diet as tolerated, NG tube out. 11/09-tolerating clears 11/10-stable, improving 11/11- improving, diet advanced to low fiber Continue to monitor Sepsis, not POA Pt with new leukocytosis, tachycardia Infectious source likely bowel in setting of bowel perforation found during surgery EKG for further eval of tachycardia, likely in setting of acute infection Intraop culture Klebsiella oxytoca and Bacteroides currently Blood Cx x1 set NGTD Continue IV Zosyn ID consult as above, appreciate recs. Recommended/stated the following: "I agree with the primary team on IV piperacillin tazobactam for now. We will follow up on the peritoneal fluid culture and adjust antibiotics as needed. If the surgical team performed a very good washout during the ex lap on 11/06 and suspect no residual infection, she will likely require a short course of antibiotics not exceeding 14 days (to be administered as IV while inpatient and step-down to oral as outpatient based on susceptibilities)." Received one dose of empiric vancomycin with IV Zosyn before ID consult Continue IV Zosyn per ID recs (day 514), follow cultures Continue to monitor Hematuria Pt with pink-tinged urine output from laboy UA with 1+ blood, 0-2 RBCs Urine cx no sig growth to date Consider Urology followup Hypophosphatemia Hypokalemia Hypocalcemia Replete as needed Tobacco abuse in process of quitting smoking, hasn't smoked for 2 days prior to presentation continue to encourage cessation prn nicotine patch Diet: advancing diet as tolerated DVT ppx: SQ Heparin Dispo: anticipate home once medically stable Admission and Anticipated Discharge Date Admission Date: November 01, 2023 Subjective pt AAOx3. States had mashed potatoes today and that was "great". Having BMs. Ambulating the halls. Pain controlled. Review of Systems Review of Systems: All systems reviewed & are unremarkable except as noted in Subjective Physical Exam Physical Exam: General: Alert, oriented. No acute distress Psych: Appropriate mood and affect HEENT:NC/AT Resp: no increased effort of breathing CV: RRR Abdomen: bandages in place, appropriately tender Extremities: No edema Results & Data Results & Data Vital Signs (Past 12 Hours) Vital Signs Temp Pulse Resp BP Pulse Ox O2 Del Method 11/12/23 14:00 37.1 C 94 H 18 133/80 97 Room Air 11/12/23 08:05 Room Air 11/12/23 07:12 36.7 C 79 16 137/87 97 Room Air
[2023-11-12] MEDS: diphenhydrAMINE Capsule 25 MG CAP PO PRN (18:22)
[2023-11-13 06:35] LABS: Basophils # (auto) 0.06 K/uL (0.00-0.20); Basophils % (auto) 0.4 %; Eosinophils # (auto) 0.18 K/uL (0.00-0.50); Eosinophils % (auto) 1.3 %; Hematocrit (blood only) 36.2 % (37.0-47.0); Hemoglobin 12.2 g/dl (12.0-16.0); Immature Granulocytes # (auto) 0.22 K/uL (0.01-0.20); Immature Granulocytes % (auto) 1.6 %; Lymphocytes # (auto) 1.44 K/uL (1.20-3.40); Lymphocytes % (auto) 10.4 %; Mean Corpuscular Hemoglobin 30.7 pg (25.0-34.0); Mean Corpuscular Hgb Conc 33.7 g/dL (32.0-36.0); Mean Corpuscular Volume 91.2 fL (80.0-100.0); Mean Platelet Volume 10.2 fL (9.4-12.4); Monocytes # (auto) 1.09 K/uL (0.11-0.59); Monocytes % (auto) 7.9 %; Neutrophils % (auto) 78.4 %; Platelet Count 476 K/uL (130-400); RDW Coefficient of Variation 14.9 % (11.5-14.5); Red Blood Count 3.97 M/uL (4.20-5.40); White Blood Count 13.79 K/ul (4.8-10.8)
[2023-11-13 06:49] LABS: Albumin Level 3.1 gm/dl (3.4-5.0); BUN Creatinine Ratio 18.6 (10-20); Bilirubin,Total 0.4 mg/dl (0.2-1.0); Calcium 8.7 mg/dl (8.6-10.3); Creatinine Clr Calc Pharmacy 132.2 ml/min; Est GFR (African American) 135.5 ml/min; Est GFR (Non-African American) 116.9 ml/min; Globulin 3.1 gm/dl (2.5-4.0); Magnesium 1.8 mg/dl (1.7-2.4); Phosphorus 4.1 mg/dl (2.5-4.9); Potassium 4.4 mmol/L (3.5-5.1); Total Protein 6.2 gm/dl (6.0-8.3)
--- NOTE | 2023-11-13 08:00 | Surgery Progress Note ---
Date of Service November 13, 2023 Assessment & Plan (1) Status post exploratory laparotomy: Plan: Patient is status post exploratory laparotomy with small bowel resection on 11/07/2023 (postoperative day #6) No n/v , +bm +flatus WBC elevated to 13 (14) continue IV antibiotics until d/c , and oral antibiotics as outpatient VSS afebrile hayley midline , mild erythema to left abdomen tolerating low fiber ok for d/c today from general surgery standpoint follow up next week with Dr. Tomlinson return precautions given Admission and Anticipated Discharge Date Admission Date: November 01, 2023 Supervising Physician Co-Signing Physician Notes Stable for d/c from surgical standpoint 14 total antibiotics upon discharge Surgery will sign off at this time, please call with any questions Subjective tolerating low fiber pain controlled no fever/chills +Bms +flatus Review of Systems Constitutional: no fever Respiratory: no dyspnea Cardiovascular: no chest pain Gastrointestinal: no nausea and no vomiting Genitourinary: no dysuria Musculoskeletal: no muscle weakness Physical Exam Constitutional: cooperative and comfortable; no acute distress Respiratory: normal respiratory effort and able to speak in complete sentences; no respiratory distress Cardiovascular: Rate/Rhythm: regular rate Gastrointestinal (Abdomen): Inspection/Auscultation: + abdominal surgical scar and + abdominal surgical incision (CDI , hayley midline , mild erythema surrounding left side ) Percussion/Palpation: + abdomen tender and abdomen soft; no guarding Psychiatric: Orientation: alert and oriented x 3 Results & Data Vital Signs (Past 12 Hours) Vital Signs Temp Pulse Resp BP Pulse Ox O2 Del Method 11/12/23 20:13 98.2 F 94 H 18 133/84 97 Room Air PG Care Time/CCT Total # of Minutes Spent Total Time Spent with Patient: Total time spent is greater than 50% in coordination of care (as documented) at patient's floor/unit and/or counseling patient: Coding Level of Care Code 25915 Post Operative Follow-Up Diagnoses Status post exploratory laparotomy Z98.890
[2023-11-13 08:05] VITALS: BP 140/80; RESP 12; TEMP 98.6
[2023-11-13] MEDS: oxyCODONE HCL IR 5 MG TAB (IMMEDIATE RELEASE) PO PRN (11:21)
[2023-11-13 11:50] VITALS: PULSE 106
--- NOTE | 2023-11-13 11:54 | Discharge Summary ---
Discharge Summary Date of Service November 13, 2023 Principal Dx & Hospital Course #1 = Principal Diagnosis (1) SBO (small bowel obstruction): Plan Pt is a 53yoF with PMhx significant for diverticulitis complicated with abscess s/p partial colectomy in 2020, GERD, hx of depression, hx of tobacco abuse who presents to ED 2/2 abd pain x 1 day. Found to have a high grade SBO. High Grade Small bowel obstruction Hx of complicated diverticulitis with [place] [facility] [place]x of prior abd surgeries include c section, partial colectomy CT abd/pelvis noting a high-grade small bowel obstruction. Subsequent KUBs with persistent SBO General surgery consulted, recommended/stated the following: -initially recommended conservative management -However on 11/06, noted leukocytosis and tachycardia, persistent SBO on KUB -s/p diagnostic laparoscopy, lysis of adhesions, exploratory laparotomy and small bowel resection with small bowel anastomosis for bowel perforation with General Surgery on 11/07/23 -Per General surgery, consult ID given significant stool and noted exudative material intraop -IV Zosyn -IV fluids - remove NG tube, advanced diet Pt's diet was advanced and she tolerated it well. Received appr five days worth of IV antibiotics (IV Zosyn q8h) from date of surgery, discharged with po Flagyl 500mg TID and Levaquin 750mg daily to com plete a total of 14 days of IV+po treatment. Please ensure close follow up with general surgery. Sepsis, not POA Pt with new leukocytosis, tachycardia Infectious source likely bowel in setting of bowel perforation found during surgery EKG for further eval of tachycardia, likely in setting of acute infection Intraop culture Klebsiella oxytoca and Bacteroides currently Blood Cx x1 set NGTD Continue IV Zosyn ID consult as above, appreciate recs. Recommended/stated the following: "I agree with the primary team on IV piperacillin tazobactam for now. We will follow up on the peritoneal fluid culture and adjust antibiotics as needed. If the surgical team performed a very good washout during the ex lap on 11/06 and suspect no residual infection, she will likely require a short course of antibiotics not exceeding 14 days (to be administered as IV while inpatient and step-down to oral as outpatient based on susceptibilities)." Received one dose of empiric vancomycin with IV Zosyn before ID consult Received appr five days worth of IV antibiotics (IV Zosyn q8h) from date of surgery, discharged with po Flagyl 500mg TID and Levaquin 750mg daily to complete a total of 14 days of IV+po treatment per ID recs. Please ensure close follow up with general surgery. Hematuria Pt with pink-tinged urine output from laboy UA with 1+ blood, 0-2 RBCs Urine cx no sig growth to date Consider Urology followup Hypophosphatemia Hypokalemia Hypocalcemia Repleted as needed Tobacco abuse in process of quitting smoking, hasn't smoked for 2 days prior to presentation continue to encourage cessation prn nicotine patch Notes For Next Care Provider Please ensure follow up with General Surgery Medication Changes From Visit Levaquin 750mg daily x 9 more days Flagyl 500mg TID x 9 more days prn oxycodone per General Surgery Admission HPI Per Admitting Provider This is a 53 yr old M who has a significant PMH of diverticulitis complicated with abscess s/p partial colectomy in 2020, GERD, hx of depression, hx of tobacco abuse who presents to ED 2/2 abd pain x 1 day. Her is at bedside who helps elicit hx. She woke up this morning with a, "burning pain" in her abdomen that radiated up the side of her back. Pain was constant but would wax and wane in severity. She thought this was her diverticulitis due to prior hx of and recently eating chocolate bar with peanuts. She feels chilled but denies any documented fevers. She has had severe nausea with several episodes of vomiting. She had a BM yesterday morning but was formed and small. She had diarrhea on Sunday. Over last few days she notes a decreased appetite. She denies hematemesis, melena, hematochezia, dysuria, increased burn/urg with urination. In ED she underwent CT scan which shows High grade small bowel obstruction. General surgery was consulted but has not yet seen the patient. ED provider started antiemetics, analgesia and fluids. Admission Exam Per Admitting Provider Constitutional: WD/WN, vitals as above, appears acutely ill, +pain, sitting up in bed, pleasant, conversing easily Head: Normocephalic, Atraumatic Eyes: PERRL, conjunctivae normal, anicteric sclerae ENMT: external ear and nose normal, oropharynx normal/dry Neck: trachea midline, no thyromegaly normal visual inspection Respiratory: normal respiratory effort, lungs clear to auscultation, no wheeze, rales, rhonchi. Normal insp/exp effort, no accessory muscle use Cardiovascular: RRR, no murmur, no edema Vessels: no JVD or carotid bruit Chest: normal inspection of chest Abdomen: absent bowel sounds, soft, TTP throughout, no rebound/guarding Musculoskeletal: no cyanosis or clubbing, AROM x 4 Skin: no rashes, warm and dry normal turgor Neurologic: no face palsy, no dysarthria CN's II-XI intact bilaterally and moves all extremities Psychiatric: A+Ox3, euthymic affect : deferred Discharge Exam General: Alert, oriented. No acute distress Psych: Appropriate mood and affect HEENT:NC/AT Resp: breath sounds clear, no increased effort of breathing CV: RRR Abdomen: bandages in place, appropriately tender, stapled surgical scar w/o signs of infection Extremities: No edema Updated Medication List Medication Instructions Recorded Confirmed Type naproxen 1 tab PO DIRECTED PRN Pain 11/01/23 11/01/23 History levofloxacin 750 mg tablet 750 mg PO DAILY #9 tabs 11/13/23 Rx metronidazole 500 mg tablet 500 mg PO Q8H #27 tabs 11/13/23 Rx oxycodone 5 mg tablet 5 - 10 mg (1 - 2 x 5 mg) PO 11/13/23 Rx .[id number] PRN pain #15 tabs Hospital Stay Data Consultations 11/01/23 12:50 Consult General Surgery Stat 11/01/23 12:57 ED Decision to Admit Stat 11/07/23 15:50 Consult Infectious Diseases Routine Procedures Performed Operation Date: 11/07/23 13:00 Actual Procedures p Laparotomy, Small Bowel Resection, Lysis of Adhesions(Not Applicable) - Stew Tomlinson DO, FACS s Robotic assisted Exploratory Laparoscopy,(Not Applicable) - Stew Tomlinson DO, FACS Diagnostic Imagining Performed 11/01/23 10:56 CT Abd and Pelvis [CT abd pelvis IV con only] Stat 11/06/23 07:35 FL small bowel follow through Urgent Abdomen/Pelvis CT 11/01/23 10:56 CT OF THE ABDOMEN AND PELVIS WITH CONTRAST CLINICAL HISTORY: Lower abdominal pain. COMPARISON STUDY: CT of the abdomen and pelvis May 05, 2020. TECHNIQUE: Following IV administration of 93 mL of Optiray, axial images of the abdomen and pelvis were obtained from the lung bases to the proximal femurs. Images were reviewed in the axial, sagittal, and coronal planes. IV contrast was administered without complication. Automated exposure control was utilized for the study. A dose lowering technique was utilized adhering to the principles of ALARA. CT DOSE: 427.28 mGy.cm FINDINGS: No pneumatosis, free air or portal venous gas is present. Liver, spleen, adrenal glands, kidneys and pancreas are unremarkable. There is no biliary or pancreatic ductal dilatation. There is no hydronephrosis. Subcentimeter hypodense left lower pole renal lesion is similar to prior CT. This is benign. The proximal to mid small bowel is moderately dilated fluid- filled. Small bowel measure up to 4.7 cm in caliber. A transition point within the upper pelvis on image 208 of 349 is noted. This is adjacent to small bowel anastomosis. Additional small bowel loops converge on this point with additional apparent transition points. There is slight swirling of the mesentery. A small amount of associated ascites is present. No bowel wall thickening is identified. 6.5 cm fundal lesion within the uterus is unchanged and favors a fibroid. IMPRESSION: 1. Findings consistent with a high-grade small bowel obstruction. Several transition points in close proximity to one another within the pelvis, at/or adjacent to small bowel anastomoses. Mild swirling of the mesentery. Given the configuration, a closed loop obstruction cannot be excluded. Small amount of ascites. No pneumatosis, free air or portal venous gas. 2. 6.5 cm fibroid. ACT 112: Negative or not required by law. Electronically signed by: Gordo Chun M.D. 11/01/2023 12:15 PM KUB X-Ray 11/01/23 14:06 KUB CLINICAL HISTORY: Enteric tube placement. FINDINGS: An AP upright view of the lower chest and upper abdomen is correlated with abdominal CT performed earlier the same day 11/01/2023. An enteric tube is in place. The tip is coiled in the distal esophagus. Excreted IV contrast is seen within the renal collecting systems. There is gaseous distention of the small bowel loops which measure up to 6 cm. This is consistent with small bowel obstruction. No intraperitoneal free air is identified below the diaphragm. The hepatic silhouette appears enlarged. The lung bases are clear as imaged. The visualized bony structures appear intact. IMPRESSION: 1. The enteric tube is coiled in the distal esophagus. Repositioning is indicated. 2. Again seen is evidence of high-grade small bowel obstruction. Electronically signed by: Justyn Rogel M.D. 11/01/2023 3:20 PM KUB X-Ray 11/01/23 15:35 KUB CLINICAL HISTORY: NG tube reposition COMPARISON STUDY: CT of the abdomen and pelvis and KUB performed earlier today. FINDINGS: The nasogastric tube has been repositioned. The tip is within the gastric fundus. The tip is well-positioned. Multiple dilated loops of small bowel are again noted. Contrast within the collecting systems from recent contrast-enhanced CT is present. IMPRESSION: Well-positioned nasogastric tube. Tip within the gastric fundus. ACT 112: Negative or not required by law. Electronically signed by: Gordo Chun M.D. 11/01/2023 3:58 PM KUB X-Ray 11/02/23 03:52 KUB HISTORY: Generalized abdominal pain COMPARISON: KUB 11/01/2023. FINDINGS: The nasogastric tube is curled within the fundus of the stomach. The lung bases are clear. Dilated gas-filled loops of small bowel bowel within the midabdomen persist measuring up to 5.7 cm. These are similar to the prior study. Suture material again noted within the pelvis. No renal calculi. No ureteral calculi. No pneumoperitoneum or pneumatosis. IMPRESSION: 1. Redemonstration of the high-grade small bowel obstruction. 2. Nasogastric tube terminates in the stomach. ACT 112: Negative or not required by law. Electronically signed by: Michael Alvarado M.D. 11/02/2023 9:05 AM KUB X-Ray 11/05/23 07:00 KUB HISTORY: Small bowel obstruction. Follow-up. COMPARISON: KUB 11/02/2023. FINDINGS: Nasogastric tube terminates in the distal stomach and may be within a postpyloric position. Suture material again noted within the deep pelvis. High- grade small bowel obstruction persists with the small bowel measuring up to 6.5 cm in diameter. No renal calculi. No ureteral calculi. No pneumoperitoneum or pneumatosis. IMPRESSION: 1. Nasogastric tube terminates in the distal stomach and may be within a postpyloric position. 2. High-grade small bowel obstruction again noted. ACT 112: Negative or not required by law. Electronically signed by: Michael Alvarado M.D. 11/05/2023 8:01 AM KUB X-Ray 11/05/23 11:35 KUB HISTORY: NG tube insertion COMPARISON: KUB 11/05/2023. FINDINGS: A nasogastric tube is curled within the distal stomach. Dilated loops of small bowel persist. The lung bases are clear. No renal calculi. No ureteral calculi. No pneumoperitoneum or pneumatosis. IMPRESSION: 1. The nasogastric tube is curled within the distal stomach. 2. Persistent small bowel dilatation consistent with a high-grade small bowel obstruction. ACT 112: Negative or not required by law. Electronically signed by: Michael Alvarado M.D. 11/05/2023 11:58 AM KUB X-Ray 11/05/23 12:12 KUB HISTORY: NG tube insertion COMPARISON: None. FINDINGS: Nasogastric tube terminates in the distal stomach near the pylorus. High-grade small bowel obstruction persists. No renal calculi. No ureteral calculi. No pneumoperitoneum or pneumatosis. IMPRESSION: 1. Nasogastric tube terminates at the distal stomach. 2. A high-grade small bowel obstruction persists. ACT 112: Negative or not required by law. Electronically signed by: Michael Alvarado M.D. 11/05/2023 12:36 PM Small Bowel X-Ray 11/06/23 07:35 SMALL BOWEL FOLLOW-THROUGH WITH WATER-SOLUBLE CONTRAST CLINICAL HISTORY: SBO , please insert contrast through NGT COMPARISON STUDY: CT of the abdomen and pelvis November 01, 2023 and KUB Septembe r 2023. Procedure and findings: Initially, a director of instrumental music KUB was obtained. Tip of nasogastric tube is within the distal stomach. Small bowel dilatation was again noted. Dilute Optiray 320 was then inserted through the nasogastric tube and small bowel follow-through was performed. These images demonstrate persistent small bowel dilatation. Imaging was carried out for 4.5 hours. Contrast did not reach the cecum. No transition point was identified. Given 4 1/2 hours of imaging, no further imaging was performed. The findings indicate a persistent high-grade small bowel obstruction. IMPRESSION: Findings consistent with a persistent small bowel obstruction. Contrast did not reach the cecum. No transition point identified. ACT 112: Negative or not required by law. Electronically signed by: Gordo Chun M.D. 11/06/2023 2:41 PM KUB X-Ray 11/07/23 00:23 KUB CLINICAL HISTORY: Generalized abdominal pain. Distention. FINDINGS: 2 AP, portable, supine views of the abdomen are compared to study dated 11/05/2023 and correlated with abdominal CT dated 11/01/2023. An enteric tube is unchanged in position. Residual enteric contrast is seen throughout the small bowel. The small bowel loops are significantly dilated, measuring up to 7 cm in diameter. This indicates persistent small bowel obstruction. No evidence of intraperitoneal free air is identified on these supine images. Suture material projects over the pelvis. The bony structures appear intact. IMPRESSION: Persistent high-grade small bowel obstruction. Electronically signed by: Justyn Rogel M.D. 11/07/2023 7:08 AM KUB X-Ray 11/07/23 06:00 XR KUB/Abdomen 1 view CLINICAL HISTORY: eval sbo and passage of contrast TECHNIQUE: 1 view of the abdomen was obtained. Comparison: Comparison is made to abdomen radiograph 11/07/2023 FINDINGS: Enteric tube terminates in the stomach. The osseous structures are grossly unremarkable. Numerous dilated loops of small bowel are again seen measuring up to 72 mm. IMPRESSION: Persistent high-grade small bowel obstruction. ACT 112: Negative or not required by law. Electronically signed by: Gianfranco Rice M.D. 11/07/2023 8:07 AM Chest X-Ray 11/08/23 18:15 XR chest 1V portable HISTORY: 53 years-old Female hypoxia acute hypoxia COMPARISON: KUB 11/07/2023. TECHNIQUE: AP view of the chest FINDINGS: Chronic silhouette is normal. No pneumothorax or pleural effusion. Mild bibasilar densities, likely atelectatic. Mild pulmonary emphysema. Bones appear grossly intact. Enteric tube courses into the stomach with distal tip outside the [id number]. IMPRESSION: 1. Mild bibasilar opacities suggest atelectasis. 2. Pulmonary emphysema. 3. Enteric tube courses into the stomach. ACT 112: Negative or not required by law. The above report was generated using voice recognition software. It may contain grammatical, syntax or spelling errors. Electronically signed by: Ángel Newell M.D. 11/08/2023 6:43 PM Pending Results Patient Have Any Pending Studies at Discharge: Yes Discharge Instructions Given to Patient (Per Discharging Provider) Julissa, You were seen by General Surgery and had surgery after a bowel obstruction and perforation. Infectious Disease recommends discharge home with antibiotics for a total of 14 days. We are discharging you home with oral antibiotics. Please take the prescribed antibiotics as prescribed and keep close follow up with General Surgery after discharge. Please keep close follow up with your primary care provider after discharge. Please do not hesitate to come back to the emergency room if your symptoms worsen or return. It was a pleasure taking care of you while you were here. Total Time Total Time Spent Total Time Spent (In Minutes): 75
[2023-11-13] MEDS ORDERED: PANTOprazole 40 MG TAB PO SCH (21:00)
== END 2023-11-13 12:14 | disposition home or self-care (01) | DRG 329 ==
LOC: ED 10:10 → EDINP 13:07 → SUATTDRO 13:07 → EDINP 15:42 → 3W 16:37 → 3N 11-12 18:52

== ENCOUNTER 2023-11-14 20:30 | Inpatient (IN) ==
[2023-11-14 21:33] LABS: Appearance Urine Clear (Clear); Bacteria Urine Automated None Seen (None Seen); Bilirubin Urine Negative (Negative); Blood Urine Negative (Negative); Color Urine Yellow; Glucose Urine UA Negative (Negative); Ketones Urine Negative (Negative); Leukocyte Esterase Urine Trace (Negative); Nitrite Urine Negative (Negative); Protein Urine Negative (Negative); RBC Urine Automated 0-2 /hpf (0-2); Specific Gravity Urine 1.024 (1.000-1.030); Urobilinogen Urine Negative (Negative); WBC Urine Automated 0-5 /hpf (0-5)
[2023-11-14 21:41] LABS: Basophils # (auto) 0.06 K/uL (0.00-0.20); Basophils % (auto) 0.4 %; Eosinophils # (auto) 0.18 K/uL (0.00-0.50); Eosinophils % (auto) 1.2 %; Hematocrit (blood only) 33.4 % (37.0-47.0); Hemoglobin 11.4 g/dl (12.0-16.0); Immature Granulocytes # (auto) 0.17 K/uL (0.01-0.20); Immature Granulocytes % (auto) 1.2 %; Lymphocytes # (auto) 1.72 K/uL (1.20-3.40); Lymphocytes % (auto) 11.9 %; Mean Corpuscular Hemoglobin 30.8 pg (25.0-34.0); Mean Corpuscular Hgb Conc 34.1 g/dL (32.0-36.0); Mean Corpuscular Volume 90.3 fL (80.0-100.0); Mean Platelet Volume 9.8 fL (9.4-12.4); Monocytes # (auto) 1.15 K/uL (0.11-0.59); Monocytes % (auto) 7.9 %; Neutrophils # (auto) 11.23 K/uL (1.40-6.50); Neutrophils % (auto) 77.4 %; Platelet Count 682 K/uL (130-400); RDW Coefficient of Variation 14.7 % (11.5-14.5); RDW Standard Deviation 48.8 fL (36.4-46.3); White Blood Count 14.51 K/ul (4.8-10.8)
[2023-11-14 21:58] LABS: INR 1.1 (0.9-1.1); Partial Thromboplastin Ratio 1.2; Partial Thromboplastin Time 31 Seconds (21-31); Prothrombin Time 11.6 Seconds (9.0-12.0)
[2023-11-14 22:02] LABS: Alanine Aminotransferase 25 U/L (7-52); Albumin Globulin Ratio 0.9 (0.9-2); Alkaline Phosphatase 89 U/L (34-104); Anion Gap 8 (3-11); BUN Creatinine Ratio 44.2 (10-20); Bilirubin,Total 0.3 mg/dl (0.2-1.0); Blood Urea Nitrogen 19 mg/dl (6-23); Calcium 8.5 mg/dl (8.6-10.3); Carbon Dioxide 26 mmol/L (21-32); Chloride 104 mmol/L (98-107); Est GFR (African American) 135.5 ml/min; Est GFR (Non-African American) 116.9 ml/min; Globulin 3.3 gm/dl (2.5-4.0); Glucose 112 mg/dl (70-99(Fasting)); Sodium 138 mmol/L (136-145); Total Protein 6.3 gm/dl (6.0-8.3)
[2023-11-14] MEDS: OPTIRAY 320 100ml IV ONE (22:56)
[2023-11-14] MEDS: PIPERACILLIN/TAZOBACTAM 4.5 GM/100 ML BAG IV ONE (23:06)
[2023-11-14 23:09] LABS: Potassium 3.6 mmol/L (3.5-5.1)
--- NOTE | 2023-11-14 23:35 | Emergency Department Note ---
History of Present Illness General Chief complaint: Wound Dehiscence Stated complaint: SURAJ SEPERATING/SEAPING FLUID, INFECTION Time Seen by Provider: 11/14/23 22:06 History of Present Illness This 53-year-old female that was recently discharged from our facility for small bowel obstruction with abscess with perforation presents ER complaining of drainage and redness to the incisional site. Patient denies chest pain, dyspnea, fevers, vomiting, diarrhea. She states the redness got slightly worse since being discharged. Home Medications Medication Instructions Recorded Confirmed Type levofloxacin 750 mg tablet 750 mg PO DAILY #9 tabs 11/13/23 11/14/23 Rx metronidazole 500 mg tablet 500 mg PO Q8H #27 tabs 11/13/23 11/14/23 Rx oxycodone 5 mg tablet 5 - 10 mg (1 - 2 x 5 mg) PO 11/13/23 11/14/23 Rx .[id number] PRN pain #15 tabs Allergies Allergy/AdvReac Type Severity Reaction Status Date / Time fluconazole Allergy Mild Rash Unverified 11/01/23 11:38 morphine Allergy Mild Hives Unverified 11/01/23 11:38 Past Med/Surg History Problem List (Updated 11/15/23 @ 02:54 by Mona Barrientos PA-C) Abdominal wall cellulitis (Acute) Status post exploratory laparotomy Bowel perforation Peritonitis, acute generalized S/P small bowel resection (Acute) Nausea & vomiting (Acute) Abdominal pain (Acute) SBO (small bowel obstruction) (Acute) Medical History Depression GERD (gastroesophageal reflux disease) Diverticulitis Surgical History H/O laparoscopy (11/07/23) diagnostic laparoscopy, lysis of adhesions, exploratory laparotomy, Small Bowel Resection with small bowel anastomosis- Stew Tomlinson, , FACS Hx of colectomy 2020 Laparoscopic partial colectomy with coloproctostomy Hx of hemorrhoidectomy Hx of tubal ligation Hx of section Family History Grandmother (Maternal) Diabetes Social History Smoking Status: Never smoker Tobacco Type: Cigarettes Hx Alcohol Use: No Hx Substance Use: No Preferred Language: Romanian Communication Ability: Effective Cementer Required: No Beliefs That Will Affect Care: Spiritual marital status: Current Living Situation: Spouse and Family current occupational status: employed Feels Safe at Home: Yes Assistive Devices: None Review of Systems A total of 10 systems reviewed and were otherwise negative Physical Exam Vital Signs Vital Signs - 24 hr 11/14/23 20:33 11/14/23 21:15 11/14/23 21:16 Temperature 36.8 C Temperature Source Temporal Artery Scan Pulse Rate Pulse Rate [Apical] Respiratory Rate 18 18 Respiratory Effort / Characteristics Non-Labored Spontaneous Respiratory Depth Normal Respiratory Pattern Regular Blood Pressure 116/88 Blood Pressure [Left Arm] 119/74 Blood Pressure Mean 97 Blood Pressure Mean [Left Arm] 89 Blood Pressure Position [Left Arm] Pulse Oximetry 97 97 Oxygen Delivery Method Room Air Room Air Room Air Sepsis Recent Fever Within 48 Hours No Sepsis New/Unexplained Change in Mental Status No Sepsis Action Taken by Nursing No Action Required 11/14/23 23:00 11/14/23 23:24 11/15/23 01:00 Temperature Temperature Source Pulse Rate 87 Pulse Rate [Apical] 87 93 H Respiratory Rate 23 24 Respiratory Effort / Characteristics Non-Labored Spontaneous Respiratory Depth Normal Respiratory Pattern Regular Blood Pressure Blood Pressure [Left Arm] 119/74 116/70 Blood Pressure Mean Blood Pressure Mean [Left Arm] 89 85 Blood Pressure Position [Left Arm] Semi-fowlers Pulse Oximetry 96 94 Oxygen Delivery Method Room Air Room Air Sepsis Recent Fever Within 48 Hours Sepsis New/Unexplained Change in Mental Status Sepsis Action Taken by Nursing 11/15/23 03:00 Temperature Temperature Source Pulse Rate Pulse Rate [Apical] 98 H Respiratory Rate 18 Respiratory Effort / Characteristics Respiratory Depth Respiratory Pattern Blood Pressure Blood Pressure [Left Arm] 98/65 L Blood Pressure Mean Blood Pressure Mean [Left Arm] 76 Blood Pressure Position [Left Arm] Semi-fowlers Pulse Oximetry 96 Oxygen Delivery Method Room Air Sepsis Recent Fever Within 48 Hours Sepsis New/Unexplained Change in Mental Status Sepsis Action Taken by Nursing VITALS: Vitals are noted on the nurse's note and reviewed by myself. Vital signs stable. GENERAL: Pleasant female, in no acute distress, nondiaphoretic, well-developed well-nourished. SKIN: Capillary reflex less than 2 seconds. HEENT: Normocephalic. PERRLA. EOMI. Nares patent. Mucous membranes moist. Neck is supple without nuchal rigidity. HEART: Regular rate and rhythm LUNGS: Clear to auscultation bilaterally without wheezes, rales or rhonchi. No retractions or accessory muscle use. ABDOMEN: Positive bowel sounds x 4. Normal tympanic percussion. Soft, midline incision intact with surrounding erythema with minimal serosanguineous drainage, nontender, without masses or organomegaly. Vizcarra sign negative. No guarding or rebound tenderness. no CVA tenderness MUSCULOSKELETAL: No gross musculoskeletal defects. NEURO: Patient was alert and oriented to person place and time. No focal neurological deficits. Course Administered Medications Discontinued Medications Piperacillin Sod/Tazobactam Sod (Zosyn) 4.5 gm in 100 mls @ 200 mls/hr IV NOW ONE Stop: 11/14/23 22:36 Last Infusion: 11/14/23 23:45 Dose: Infused Documented By: Admin: 11/14/23 23:06 Dose: 200 mls/hr Documented By: AMBAR Ioversol (Optiray 320 100ml) 93 ml IV ONCE ONE Stop: 11/14/23 22:56 Last Admin: 11/14/23 22:56 Dose: 93 ml Documented By: ERICA Medical Decision Making Medical Records Attestation: I reviewed the patient's medical records. Home Medications Current Medication List: was personally reviewed by me Laboratory Data Attestation: I reviewed the patient's lab results. 11/14/23 21:05 11/14/23 22:32 Lab Results 11/14/23 11/14/23 Range/Units 21:05 22:32 WBC 14.51 H (4.8-10.8) K/ul RBC 3.70 L (4.20-5.40) M/uL Hgb 11.4 L (12.0-16.0) g/dl Hct 33.4 L (37.0-47.0) % MCV 90.3 (80.0-100.0) fL MCH 30.8 (25.0-34.0) pg MCHC 34.1 (32.0-36.0) g/dL RDW Std Deviation 48.8 H (36.4-46.3) fL RDW Coeff of Thong 14.7 H (11.5-14.5) % Plt Count 682 H (130-400) K/uL MPV 9.8 (9.4-12.4) fL Immature Gran % (Auto) 1.2 % Neut % (Auto) 77.4 % Lymph % (Auto) 11.9 % [place] % (Auto) 7.9 % Eos % (Auto) 1.2 % Baso % (Auto) 0.4 % Neut # (Auto) 11.23 H (1.40-6.50) K/uL Lymph # (Auto) 1.72 (1.20-3.40) K/uL [place] # (Auto) 1.15 H (0.11-0.59) K/uL Eos # (Auto) 0.18 (0.00-0.50) K/uL Baso # (Auto) 0.06 (0.00-0.20) K/uL Immature Gran # (Auto) 0.17 (0.01-0.20) K/uL PT 11.6 (9.0-12.0) Seconds INR 1.1 (0.9-1.1) APTT 31 (21-31) Seconds PTT Ratio 1.2 Sodium 138 (136-145) mmol/L Potassium TNP 3.6 Chloride 104 (98-107) mmol/L Carbon Dioxide 26 (21-32) mmol/L Anion Gap 8 (3-11) BUN 19 (6-23) mg/dl Creatinine 0.43 L (0.6-1.2) mg/dl Est Cr Clr Drug Dosing Not Reportable Est GFR ( Amer) 135.5 ml/min Est GFR (Non-Af Amer) 116.9 ml/min BUN/Creatinine Ratio 44.2 H (10-20) Glucose 112 H (70-99(Fasting)) mg/dl Lactate 0.9 (0.4-2.0) mmol/L Calcium 8.5 L (8.6-10.3) mg/dl Total Bilirubin 0.3 (0.2-1.0) mg/dl AST TNP 17 ALT 25 (7-52) U/L Alkaline Phosphatase 89 (34-104) U/L Total Protein 6.3 (6.0-8.3) gm/dl Albumin 3.0 L (3.4-5.0) gm/dl Globulin 3.3 (2.5-4.0) gm/dl Albumin/Globulin Ratio 0.9 (0.9-2) Urine Color Yellow Urine Appearance Clear (Clear) Urine pH 7.0 (4.5-7.5) Ur Specific Stamps 1.024 (1.000-1.030) Urine Protein Negative (Negative) Urine Glucose (UA) Negative (Negative) Urine Ketones Negative (Negative) Urine Blood Negative (Negative) Urine Nitrite Negative (Negative) Urine Bilirubin Negative (Negative) Urine Urobilinogen Negative (Negative) Ur Leukocyte Esterase Trace H (Negative) Urine WBC (Auto) 0-5 (0-5) /hpf Urine RBC (Auto) 0-2 (0-2) /hpf U Hyaline Cast (Auto) 3-5 H (0-2) /lpf U Epithel Cells (Auto) 3-5 H (0-2) /hpf Urine Bacteria (Auto) None Seen (None Seen) Imaging Data Attestation: I personally reviewed and interpreted this imaging study as follows: Radiologist's Impression: Abdomen/Pelvis CT 11/14/23 22:07 Exam(s): CT ABDOMEN + PELVIS With Contrast IV Amt: 93 ml optiray 320 EXAM: CT Abdomen and Pelvis With Intravenous Contrast CLINICAL HISTORY: Reason for exam: midline infx, recent bowel perforation. CP. Autism. Nonverbal. Only observed hx available. more off balance over the last few weeks. Fallen many times. Unstady every time she stands. Concerned about leg weakness. Loss of appitite. Bladder disfunction. R/O stones, infections, spinal compression TECHNIQUE: Axial computed tomography images of the abdomen and pelvis with intravenous contrast. CTDI is 9.28 mGy and DLP is 434.39 mGy-cm. Automated exposure control was utilized for the study. A dose lowering technique was utilized adhering to the principles of ALARA. CONTRAST: Patient received 93 ml optiray 320 of IV contrast COMPARISON: No relevant prior studies available. FINDINGS: Lung bases: Unremarkable. No mass. No consolidation. ABDOMEN: Liver: Unremarkable. No mass. Gallbladder and bile ducts: Unremarkable. No calcified stones. No ductal dilation. Pancreas: Unremarkable. No mass. No ductal dilation. Spleen: Unremarkable. No splenomegaly. Adrenals: Unremarkable. No mass. Kidneys and ureters: Unremarkable. No solid mass. No hydronephrosis. Stomach and bowel: Anastomotic small bowel sutures in the anterior pelvis, correlate with surgical history. Mild fluid-filled small bowel, concerning for postoperative ileus. Moderate wall thickening, for which enteritis is also suspected. No obstruction. PELVIS: Appendix: No findings to suggest acute appendicitis. Bladder: Unremarkable. No mass. Reproductive: Unremarkable as visualized. ABDOMEN and PELVIS: Intraperitoneal space: Unremarkable. No free air. No significant fluid collection. Bones/joints: No acute fracture. No dislocation. Soft tissues: Unremarkable. Vasculature: Unremarkable. No abdominal aortic aneurysm. Lymph nodes: Unremarkable. No enlarged lymph nodes. Other findings: Recent midline laparotomy. IMPRESSION: Anastomotic small bowel sutures in the anterior pelvis, correlate with surgical history. Mild fluid-filled small bowel, concerning for postoperative ileus. Moderate wall thickening, for which enteritis is also suspected. Electronically signed by: Gee Vidal MD 11/15/23 02:18 AM MDM Narrative Prior records/ancillary studies reviewed. Triage Nursing notes reviewed. Additional history obtained from family. The patient's history was concerning for drainage from midline abdominal surgical site Differential diagnosis: Etiologies such as postsurgical infection, seroma, cellulitis, abscess, appendicitis, diverticulitis, PUD, biliary pathology, UTI, pancreatitis, obstruction, mesenteric ischemia, aortic pathology, infections, inflammatory bowel disease, renal colic, as well as others were entertained. Physical examination findings: As above. ER treatment provided: An order was placed for continuous cardiac monitoring. The monitor shows a rate of 60-100 with a sinus rhythm per my Independent interpretation. Wound culture taken and sent from the drainage from the abdominal midline incision. Zosyn was ordered On reassessment the patient felt better. Diagnostics interpreted by me: The labs Independently Interpreted by myself revealed no worrisome leukocytosis, wound culture pending Imaging studies: CT was reviewed and read by radiology as above Consultation: A consultation was placed with the Dr Cochran. The case was discussed and diagnostics were reviewed. The patient was evaluated in the ER for further treatment. Consultation was placed with radiology and the case discussed. Radiologist does not believe there is an intra-abdominal abscess and states there is possible cellulitis to the incisional state. Exam and history seem consistent with postsurgical infection to the midline incision. Wound cultures taken and sent. Patient was started on antibiotics. Medicine was consulted and the case was discussed. She will be admitted to the medical service. By the evaluation outlined above emergent etiologies such as appendicitis, diverticulitis, PUD, biliary pathology, UTI, pancreatitis, obstruction, mesenteric ischemia, aortic pathology, inflammatory bowel disease, renal colic, as well as others were deemed relatively unlikely. The pt informed about the findings as listed above. All questions were answered and pleased with the treatment. The chart was completed utilizing [employer] Speech voice recognition software. Grammatical errors, random word insertions, pronoun errors, and incomplete sentences are an occassional consequence of this system due to software limitations, ambient noise, and hardware issues. Any formal questions or concerns about the content, text, or information contained within the body of this dictation should be directly addressed to the physician automotive service assistant for clarification. Impression & Plan Abdominal wall cellulitis, S/P small bowel resection Discharge Plan Visit Data Chief Complaint: Wound Dehiscence Stated Complaint: SURAJ SEPERATING/SEAPING FLUID, INFECTION ED Provider: Georgie Muller ED Midlevel Provider: Mona Barrientos Discharge Problem: Abdominal wall cellulitis, S/P small bowel resection Patient Disposition: Admitted As Inpatient Condition: Good Forms Stand Alone Forms: [facility] Prescriptions Prescriptions: No Action oxycodone 5 mg tablet 5 - 10 mg PO .[id number] MDD no more than 6 tabs in 24hours PRN (Reason: pain) Qty: 15 0RF levofloxacin 750 mg tablet 750 mg PO DAILY Qty: 9 0RF metronidazole 500 mg tablet 500 mg PO Q8H Qty: 27 0RF Referrals Referrals: Heather Mendoza MD [Primary Care Provider] -
--- NOTE | 2023-11-15 02:19 | CT Scan Report ---
Exam(s): CT ABDOMEN + PELVIS With Contrast IV Amt: 93 ml optiray 320 EXAM: CT Abdomen and Pelvis With Intravenous Contrast CLINICAL HISTORY: Reason for exam: midline infx, recent bowel perforation. CP. Autism. Nonverbal. Only observed hx available. more off balance over the last few weeks. Fallen many times. Unstady every time she stands. Concerned about leg weakness. Loss of appitite. Bladder disfunction. R/O stones, infections, spinal compression TECHNIQUE: Axial computed tomography images of the abdomen and pelvis with intravenous contrast. CTDI is 9.28 mGy and DLP is 434.39 mGy-cm. Automated exposure control was utilized for the study. A dose lowering technique was utilized adhering to the principles of ALARA. CONTRAST: Patient received 93 ml optiray 320 of IV contrast COMPARISON: No relevant prior studies available. FINDINGS: Lung bases: Unremarkable. No mass. No consolidation. ABDOMEN: Liver: Unremarkable. No mass. Gallbladder and bile ducts: Unremarkable. No calcified stones. No ductal dilation. Pancreas: Unremarkable. No mass. No ductal dilation. Spleen: Unremarkable. No splenomegaly. Adrenals: Unremarkable. No mass. Kidneys and ureters: Unremarkable. No solid mass. No hydronephrosis. Stomach and bowel: Anastomotic small bowel sutures in the anterior pelvis, correlate with surgical history. Mild fluid-filled small bowel, concerning for postoperative ileus. Moderate wall thickening, for which enteritis is also suspected. No obstruction. PELVIS: Appendix: No findings to suggest acute appendicitis. Bladder: Unremarkable. No mass. Reproductive: Unremarkable as visualized. ABDOMEN and PELVIS: Intraperitoneal space: Unremarkable. No free air. No significant fluid collection. Bones/joints: No acute fracture. No dislocation. Soft tissues: Unremarkable. Vasculature: Unremarkable. No abdominal aortic aneurysm. Lymph nodes: Unremarkable. No enlarged lymph nodes. Other findings: Recent midline laparotomy. IMPRESSION: Anastomotic small bowel sutures in the anterior pelvis, correlate with surgical history. Mild fluid-filled small bowel, concerning for postoperative ileus. Moderate wall thickening, for which enteritis is also suspected. Electronically signed by: Gee Vidal MD 11/15/23 02:18 AM
--- NOTE | 2023-11-15 03:46 | History & Physical Report ---
Date of Service November 15, 2023 Assessment & Plan (1) Draining postoperative wound: Plan: 53-year-old female with past medical history significant for esophagitis, uterine leiomyoma, postmenopausal bleeding, abnormal Pap smear of cervix with positive human papilloma virus, depression, tobacco use disorder, history of diverticulitis complicated with abscess s/p partial colectomy in 2020 was recently admitted in the hospital for high-grade small bowel obstruction and status post diagnostic laparoscopy and lysis of adhesions and exploratory laparotomy and small bowel resection with small bowel anastomosis for bowel perforation on 11/26 and was on IV Zosyn inpatient and was discharged on 11/12 with p.o. Levaquin and Flagyl comes today because around 4 PM on 11/13 she noticed drainage coming out from top fourth staple site and was foul smelling. There is erythema around the hayley but she says its much much better than what it was when she got discharged. Denies any abdominal pain. Denies fevers. Normal bowel and bladder movements. Ambulating okay. Denies chest pain or shortness of breath. No nausea. No headache. No runny nose or sore throat. Currently resting comfortably and hemodynamically stable. Draining postoperative wound Patient recently admitted for high-grade small bowel obstruction and had exploratory laparotomy and small bowel resection with small bowel anastomosis for bowel perforation on 11/26 Peritoneal wound cultures grew Klebsiella and Bacteroides fragilis Patient was discharged on 11/12 with Levaquin and Flagyl Comes in because foul-smelling drainage coming out of fourth staple region. Currently draining seems stopped CT scan no obvious abscess seen Hemodynamically stable Patient states erythema around suture site is much better than prior to discharge Will continue p.o. Levaquin and Flagyl Will keep her n.p.o. IV fluids Surgery consult in a.m. for further recommendations Postoperative ileus On CAT scan N.p.o. and IV fluids for now Will monitor Tobacco use Counseling DVT prophylaxis SCDs for now Disposition Med/telemetry Full code. History of Present Illness Chief Complaint: Drainage from the recent abdominal surgery site Primary Care Provider: Heather Mendoza MD 53-year-old female with past medical history significant for esophagitis, uterine leiomyoma, postmenopausal bleeding, abnormal Pap smear of cervix with positive human papilloma virus, depression, tobacco use disorder, history of diverticulitis complicated with abscess s/p partial colectomy in 2020 was recently admitted in the hospital for high-grade small bowel obstruction and status post diagnostic laparoscopy and lysis of adhesions and exploratory lapar otomy and small bowel resection with small bowel anastomosis for bowel perforation on 11/26 and was on IV Zosyn inpatient and was discharged on 11/12 with p.o. Levaquin and Flagyl comes today because around 4 PM on 11/13 she noticed drainage coming out from top fourth staple site and was foul smelling. There is erythema around the hayley but she says its much much better than what it was when she got discharged. Denies any abdominal pain. Denies fevers. Normal bowel and bladder movements. Ambulating okay. Denies chest pain or shortness of breath. No nausea. No headache. No runny nose or sore throat. Currently resting comfortably and hemodynamically stable. Past medical history. As mentioned above Past surgical history. Biopsy of rectum. . Colonoscopy. Hemorrhoidectomy. IR aspiration of abscess. Laparoscopic partial colectomy with colposcope ostomy. Laparoscopic repair of inguinal hernia. Ligation of oviducts. Exploratory laparotomy and small bowel resection with small bowel anastomosis for bowel perforation. Social history. . Quit smoking in 2019. Smoked half pack a day for 25 years. No alcohol use. No drug use. Family history. Maternal grandmother had breast cancer. Diabetes. Maternal grandfather had diabetes. Mother had CABG. Allergies Allergy/AdvReac Type Severity Reaction Status Date / Time fluconazole Allergy Mild Rash Unverified 11/01/23 11:38 morphine Allergy Mild Hives Unverified 11/01/23 11:38 Home Medications Medication Instructions Recorded Confirmed Type levofloxacin 750 mg tablet 750 mg PO DAILY #9 tabs 11/13/23 11/14/23 Rx metronidazole 500 mg tablet 500 mg PO Q8H #27 tabs 11/13/23 11/14/23 Rx oxycodone 5 mg tablet 5 - 10 mg (1 - 2 x 5 mg) PO 11/13/23 11/14/23 Rx .[id number] PRN pain #15 tabs Past Med/Surg History Problem List (Updated 11/15/23 @ 05:15 by Emiliano Cochran MD) Draining postoperative wound Abdominal wall cellulitis (Acute) Status post exploratory laparotomy Bowel perforation Peritonitis, acute generalized S/P small bowel resection (Acute) Nausea & vomiting (Acute) Abdominal pain (Acute) SBO (small bowel obstruction) (Acute) Medical History Depression GERD (gastroesophageal reflux disease) Diverticulitis Surgical History H/O laparoscopy (11/07/23) diagnostic laparoscopy, lysis of adhesions, exploratory laparotomy, Small Bowel Resection with small bowel anastomosis- Stew Tomlinson, , FACS Hx of colectomy 2020 Laparoscopic partial colectomy with coloproctostomy Hx of hemorrhoidectomy Hx of tubal ligation Hx of section Family History Grandmother (Maternal) Diabetes Social History Smoking Status: Former smoker Tobacco Type: Cigarettes Do You Dip or Chew Tobacco: No; Hx Alcohol Use: No Hx Substance Use: No Preferred Language: Kazakh Communication Ability: Effective [employer] Shift Superintendent Required: No Beliefs That Will Affect Care: None marital status: Current Living Situation: Spouse and Family current occupational status: employed Feels Safe at Home: Yes Safety Concerns: Feels Safe At This Time Assistive Devices: None Review of Systems Review of Systems: All systems reviewed & are unremarkable except as noted in HPI & below Physical Exam Physical Exam: General- Not in distress Head- atraumatic Eyes- PERRL. ENT- oropharynx clear Neck- supple, no JVD. Lungs- clear to auscultation no wheezing or crackles Heart- regular rhythm; no murmur, no gallop. Abdomen- sluggish bowel sounds, soft, mild discomfort , erythema around hayley seen, no obvious drainage seen Extremities- no pretibial edema, no erythema seen Neuro- alert, oriented PERRL, no facial palsy; no dysarthria; moves extremities Results & Data Results & Data Vital Signs (Past 12 Hours) Vital Signs Temp Pulse Pulse Resp BP BP Pulse Ox 11/15/23 03:19 88 11/15/23 03:00 98 H 18 98/65 L 96 11/15/23 01:00 93 H 24 116/70 94 11/14/23 23:24 87 11/14/23 23:00 87 23 119/74 96 11/14/23 21:16 11/14/23 21:15 18 119/74 97 11/14/23 20:33 36.8 C 18 116/88 97 O2 Del Method 11/15/23 03:19 11/15/23 03:00 Room Air 11/15/23 01:00 Room Air 11/14/23 23:24 11/14/23 23:00 Room Air 11/14/23 21:16 Room Air 11/14/23 21:15 Room Air 11/14/23 20:33 Room Air Diagnostic Findings Laboratory Results WBC 14.51 K/ul (4.8-10.8) H 11/14/23 21:05 RBC 3.70 M/uL (4.20-5.40) L 11/14/23 21:05 Hgb 11.4 g/dl (12.0-16.0) L 11/14/23 21:05 Hct 33.4 % (37.0-47.0) L 11/14/23 21:05 MCV 90.3 fL (80.0-100.0) 11/14/23 21:05 MCH 30.8 pg (25.0-34.0) 11/14/23 21:05 MCHC 34.1 g/dL (32.0-36.0) 11/14/23 21:05 RDW Std Deviation 48.8 fL (36.4-46.3) H 11/14/23 21:05 RDW Coeff of Thong 14.7 % (11.5-14.5) H 11/14/23 21:05 Plt Count 682 K/uL (130-400) H 11/14/23 21:05 MPV 9.8 fL (9.4-12.4) 11/14/23 21:05 Immature Gran % (Auto) 1.2 % 11/14/23 21:05 Neut % (Auto) 77.4 % 11/14/23 21:05 Lymph % (Auto) 11.9 % 11/14/23 21:05 [place] % (Auto) 7.9 % 11/14/23 21:05 Eos % (Auto) 1.2 % 11/14/23 21:05 Baso % (Auto) 0.4 % 11/14/23 21:05 Neut # (Auto) 11.23 K/uL (1.40-6.50) H 11/14/23 21:05 Lymph # (Auto) 1.72 K/uL (1.20-3.40) 11/14/23 21:05 [place] # (Auto) 1.15 K/uL (0.11-0.59) H 11/14/23 21:05 Eos # (Auto) 0.18 K/uL (0.00-0.50) 11/14/23 21:05 Baso # (Auto) 0.06 K/uL (0.00-0.20) 11/14/23 21:05 Immature Gran # (Auto) 0.17 K/uL (0.01-0.20) 11/14/23 21:05 PT 11.6 Seconds (9.0-12.0) 11/14/23 21:05 INR 1.1 (0.9-1.1) 11/14/23 21:05 APTT 31 Seconds (21-31) 11/14/23 21:05 PTT Ratio 1.2 11/14/23 21:05 Sodium 138 mmol/L (136-145) 11/14/23 21:05 Potassium 3.6 mmol/L (3.5-5.1) 11/14/23 22:32 Chloride 104 mmol/L (98-107) 11/14/23 21:05 Carbon Dioxide 26 mmol/L (21-32) 11/14/23 21:05 Anion Gap 8 (3-11) 11/14/23 21:05 BUN 19 mg/dl (6-23) 11/14/23 21:05 Creatinine 0.43 mg/dl (0.6-1.2) L 11/14/23 21:05 Est Cr Clr Drug Dosing Not Reportable 11/14/23 21:05 Est GFR ( Amer) 135.5 ml/min 11/14/23 21:05 Est GFR (Non-Af Amer) 116.9 ml/min 11/14/23 21:05 BUN/Creatinine Ratio 44.2 (10-20) H 11/14/23 21:05 Glucose 112 mg/dl (70-99(Fasting)) H 11/14/23 21:05 Lactate 0.9 mmol/L (0.4-2.0) 11/14/23 21:05 Calcium 8.5 mg/dl (8.6-10.3) L 11/14/23 21:05 Total Bilirubin 0.3 mg/dl (0.2-1.0) 11/14/23 21:05 AST 17 U/L (13-39) 11/14/23 22:32 ALT 25 U/L (7-52) 11/14/23 21:05 Alkaline Phosphatase 89 U/L (34-104) 11/14/23 21:05 Total Protein 6.3 gm/dl (6.0-8.3) 11/14/23 21:05 Albumin 3.0 gm/dl (3.4-5.0) L 11/14/23 21:05 Globulin 3.3 gm/dl (2.5-4.0) 11/14/23 21:05 Albumin/Globulin Ratio 0.9 (0.9-2) 11/14/23 21:05 Urine Color Yellow 11/14/23 21:05 Urine Appearance Clear (Clear) 11/14/23 21:05 Urine pH 7.0 (4.5-7.5) 11/14/23 21:05 Ur Specific Cowley 1.024 (1.000-1.030) 11/14/23 21:05 Urine Protein Negative (Negative) 11/14/23 21:05 Urine Glucose (UA) Negative (Negative) 11/14/23 21:05 Urine Ketones Negative (Negative) 11/14/23 21:05 Urine Blood Negative (Negative) 11/14/23 21:05 Urine Nitrite Negative (Negative) 11/14/23 21:05 Urine Bilirubin Negative (Negative) 11/14/23 21:05 Urine Urobilinogen Negative (Negative) 11/14/23 21:05 Ur Leukocyte Esterase Trace (Negative) H 11/14/23 21:05 Urine WBC (Auto) 0-5 /hpf (0-5) 11/14/23 21:05 Urine RBC (Auto) 0-2 /hpf (0-2) 11/14/23 21:05 U Hyaline Cast (Auto) 3-5 /lpf (0-2) H 11/14/23 21:05 U Epithel Cells (Auto) 3-5 /hpf (0-2) H 11/14/23 21:05 Urine Bacteria (Auto) None Seen (None Seen) 11/14/23 21:05 Impressions Abdomen/Pelvis CT 11/14/23 22:07 Exam(s): CT ABDOMEN + PELVIS With Contrast IV Amt: 93 ml optiray 320 EXAM: CT Abdomen and Pelvis With Intravenous Contrast CLINICAL HISTORY: Reason for exam: midline infx, recent bowel perforation. CP. Autism. Nonverbal. Only observed hx available. more off balance over the last few weeks. Fallen many times. Unstady every time she stands. Concerned about leg weakness. Loss of appitite. Bladder disfunction. R/O stones, infections, spinal compression TECHNIQUE: Axial computed tomography images of the abdomen and pelvis with intravenous contrast. CTDI is 9.28 mGy and DLP is 434.39 mGy-cm. Automated exposure control was utilized for the study. A dose lowering technique was utilized adhering to the principles of ALARA. CONTRAST: Patient received 93 ml optiray 320 of IV contrast COMPARISON: No relevant prior studies available. FINDINGS: Lung bases: Unremarkable. No mass. No consolidation. ABDOMEN: Liver: Unremarkable. No mass. Gallbladder and bile ducts: Unremarkable. No calcified stones. No ductal dilation. Pancreas: Unremarkable. No mass. No ductal dilation. Spleen: Unremarkable. No splenomegaly. Adrenals: Unremarkable. No mass. Kidneys and ureters: Unremarkable. No solid mass. No hydronephrosis. Stomach and bowel: Anastomotic small bowel sutures in the anterior pelvis, correlate with surgical history. Mild fluid-filled small bowel, concerning for postoperative ileus. Moderate wall thickening, for which enteritis is also suspected. No obstruction. PELVIS: Appendix: No findings to suggest acute appendicitis. Bladder: Unremarkable. No mass. Reproductive: Unremarkable as visualized. ABDOMEN and PELVIS: Intraperitoneal space: Unremarkable. No free air. No significant fluid collection. Bones/joints: No acute fracture. No dislocation. Soft tissues: Unremarkable. Vasculature: Unremarkable. No abdominal aortic aneurysm. Lymph nodes: Unremarkable. No enlarged lymph nodes. Other findings: Recent midline laparotomy. IMPRESSION: Anastomotic small bowel sutures in the anterior pelvis, correlate with surgical history. Mild fluid-filled small bowel, concerning for postoperative ileus. Moderate wall thickening, for which enteritis is also suspected. Electronically signed by: Gee Vidal MD 11/15/23 02:18 AM Code Status & VTE Plan VTE Prophylaxis Plan VTE Prophylaxis will be ordered: Yes
[2023-11-15] MEDS ORDERED: NITROGLYCERIN SL 0.4 MG/TAB TAB SL PRN (03:54)
[2023-11-15] MEDS ORDERED: ACETAMINOPHEN 325 MG TAB PO PRN (03:54)
[2023-11-15] MEDS: LORazepam 1 MG/1 ML SYR ED Inj Use IV STA (04:00)
[2023-11-15] MEDS: SODIUM CHLORIDE 0.9% 1,000 ML IV SCH (05:06)
[2023-11-15] MEDS: metroNIDAZOLE 500 MG TAB PO SCH (06:27)
[2023-11-15 08:15] LABS: Basophils # (auto) 0.04 K/uL (0.00-0.20); Basophils % (auto) 0.4 %; Eosinophils # (auto) 0.08 K/uL (0.00-0.50); Eosinophils % (auto) 0.7 %; Hematocrit (blood only) 32.2 % (37.0-47.0); Hemoglobin 10.8 g/dl (12.0-16.0); Immature Granulocytes # (auto) 0.12 K/uL (0.01-0.20); Immature Granulocytes % (auto) 1.1 %; Lymphocytes # (auto) 1.19 K/uL (1.20-3.40); Lymphocytes % (auto) 10.6 %; Mean Corpuscular Hemoglobin 30.4 pg (25.0-34.0); Mean Corpuscular Hgb Conc 33.5 g/dL (32.0-36.0); Mean Corpuscular Volume 90.7 fL (80.0-100.0); Mean Platelet Volume 9.6 fL (9.4-12.4); Monocytes # (auto) 0.53 K/uL (0.11-0.59); Monocytes % (auto) 4.7 %; Neutrophils # (auto) 9.28 K/uL (1.40-6.50); Neutrophils % (auto) 82.5 %; Platelet Count 708 K/uL (130-400); RDW Coefficient of Variation 15.1 % (11.5-14.5); RDW Standard Deviation 50.4 fL (36.4-46.3); Red Blood Count 3.55 M/uL (4.20-5.40); White Blood Count 11.24 K/ul (4.8-10.8)
[2023-11-15 08:28] LABS: Creatinine Clr Calc Pharmacy 138.6 ml/min; Est GFR (African American) 137.7 ml/min; Est GFR (Non-African American) 118.8 ml/min; Magnesium 1.7 mg/dl (1.7-2.4); Potassium 3.9 mmol/L (3.5-5.1)
[2023-11-15] MEDS: metroNIDAZOLE 500 MG/100 ML BAG IV SCH (09:15)
--- NOTE | 2023-11-15 09:27 | Communication Note ---
Date of Service: November 15, 2023 Patient seen and examined Reported foul smelling drainage from surgical site yesterday. No worsening abd pain, fever, chills, nausea or vomiting. Having regular BM Reviewed CT WBC is 11 today Patient evaluated with Gen surg who removed hayley in upper and midportion of incision site, cleaned drainage and dressed the area Continue levofloxacin and flagyl, changed to IV for now Likely Surgical site infection Diet ordered. Other plans as detailed in H/P this AM
--- NOTE | 2023-11-15 09:30 | Surgery Consultation ---
Date of Consultation November 15, 2023 Assessment & Plan (1) Draining postoperative wound: This is a 53y F who is s/p exploratory laparotomy with small bowel resection and lysis of adhesions for SBO and small bowel perforation founded intraop on 11/07/23. The patient was discharged to home on 11/13/23 on a low fiber diet and on oral abx to complete a course of 14 days. Since being home the patient has been tolerating a diet without nausea/vomiting and having + bowel function. Unfortunately since being home she noted increased pain in the abdomen associated with purulent drainage from her midline incision. This was associated with a foul odor. Because of this she was encouraged to come into the ER for fur ther evaluation. She did undergo a CT a/p which showed mild fluid-filled small bowel, concerning for postoperative ileus. Moderate wall thickening, for which enteritis is also suspected. The patient reports feeling improvement with drainage from her incisions. No fevers/chills, cp/sob, issues with eating or bowel habits. Labs today reveal a WBC 11 (down from 14 on day of dispo). Vitals are stable and she is afebrile. On exam abdomen is with midline incision approximated with hayley with surrounding erythema and purulent drainage on dressings. Some hayley were removed from superior/mid portion of incision. Fascia appears intact. Purulent drainage expressed. A dressing was placed with dry 4x4 packing to opening in incision, covered with dry 4x4 gauze, and medipore tape. Plan on daily dressing changes and as needed. On IV abx while in house, can transition back to orals upon dispo. Diet is okay as she is having + bowel function. Case management to be consulted for home health care for assistance with dressing changes. Anticipate if patient feels improvement she can likely be discharged back to home tomorrow. Supervising Physician Co-Signing Physician Notes Her CT scan was reviewed We did open up the midportion/superior portion of her incision and got some more purulent fluid out Fascia does seem to be intact Will start a wet-to-dry dressing twice daily to the area Case management to be involved for discharge planning with her dressings History of Present Illness Attending Physician: Katrin Otoole MD History of Present Illness This is a 53y F who is s/p exploratory laparotomy with small bowel resection and lysis of adhesions for SBO and small bowel perforation founded intraop on 11/07/23. The patient was discharged to home on 11/13/23 on a low fiber diet and on oral abx to complete a course of 14 days. Since being home the patient has been tolerating a diet without nausea/vomiting and having + bowel function. Unfortunately since being home she noted increased pain in the abdomen associated with purulent drainage from her midline incision. This was associated with a foul odor. Because of this she was encouraged to come into the ER for further evaluation. She did undergo a CT a/p which showed mild fluid-filled small bowel, concerning for postoperative ileus. Moderate wall thickening, for which enteritis is also suspected. The patient reports feeling improvement with drainage from her incisions. No fevers/chills, cp/sob, issues with eating or bowel habits. Allergies Allergy/AdvReac Type Severity Reaction Status Date / Time fluconazole Allergy Mild Rash Unverified 11/01/23 11:38 morphine Allergy Mild Hives Unverified 11/01/23 11:38 Home Medications Medication Instructions Recorded Confirmed Type levofloxacin 750 mg tablet 750 mg PO DAILY #9 tabs 11/13/23 11/14/23 Rx metronidazole 500 mg tablet 500 mg PO Q8H #27 tabs 11/13/23 11/14/23 Rx oxycodone 5 mg tablet 5 - 10 mg (1 - 2 x 5 mg) PO 11/13/23 11/14/23 Rx .[id number] PRN pain #15 tabs Patient History Medical History Depression GERD (gastroesophageal reflux disease) Diverticulitis Surgical History H/O laparoscopy (11/07/23) diagnostic laparoscopy, lysis of adhesions, exploratory laparotomy, Small Bowel Resection with small bowel anastomosis- Stew Tomlinson, DO, FACS Hx of colectomy 2020 Laparoscopic partial colectomy with coloproctostomy Hx of hemorrhoidectomy Hx of tubal ligation Hx of section Family History Grandmother (Maternal) Diabetes Social History Smoking Status: Former smoker Tobacco Type: Cigarettes Do You Dip or Chew Tobacco: No; Hx Alcohol Use: No Hx Substance Use: No Preferred Language: Polish Communication Ability: Effective Clinical Operations Specialist Required: No Beliefs That Will Affect Care: None marital status: Current Living Situation: Spouse and Family current occupational status: employed Feels Safe at Home: Yes Safety Concerns: Feels Safe At This Time Assistive Devices: None Review of Systems Constitutional: no fever and no chills Respiratory: no dyspnea Cardiovascular: no chest pain Gastrointestinal: + abdominal pain; no nausea, no vomiting and no change in bowel habits Physical Exam Physical Exam: awake/alert Respiratory: normal respiratory effort Gastrointestinal (Abdomen): Inspection/Auscultation: + abdomen distended (mild) and + abdominal surgical incision (midline hayley with surrounding erythema, purulent drainage on dressing) Percussion/Palpation: abdomen soft Results & Data Vital Signs (Past 12 Hours) Vital Signs Temp Pulse Pulse Pulse Resp BP BP 11/15/23 08:11 98.8 F 96 H 16 11/15/23 07:00 101 H 11/15/23 04:59 99.1 F 106 H 16 11/15/23 04:48 100 H 16 122/84 11/15/23 03:19 88 11/15/23 03:00 98 H 18 98/65 L 11/15/23 01:00 93 H 24 116/70 11/14/23 23:24 87 11/14/23 23:00 87 23 119/74 BP Pulse Ox O2 Del Method 11/15/23 08:11 114/77 96 Room Air 11/15/23 07:00 11/15/23 04:59 104/69 95 Room Air 11/15/23 04:48 98 Room Air 11/15/23 03:19 11/15/23 03:00 96 Room Air 11/15/23 01:00 94 Room Air 11/14/23 23:24 11/14/23 23:00 96 Room Air Diagnostic Findings ADDENDUM ADDENDUM: 11/15/23 02:50 Call From Hospital Question on patients' history? Is inconsistent. Patient had ABD surgery; concern is infection in midline - Electronically signed by: Gee Vidal MD Electronically signed by: Gee Vidal MD 11/15/23 02:18 AM ADDENDUM END Exam(s): CT ABDOMEN + PELVIS With Contrast IV Amt: 93 ml optiray 320 EXAM: CT Abdomen and Pelvis With Intravenous Contrast CLINICAL HISTORY: Reason for exam: midline infx, recent bowel perforation. CP. Autism. Nonverbal. Only observed hx available. more off balance over the last few weeks. Fallen many times. Unstady every time she stands. Concerned about leg weakness. Loss of appitite. Bladder disfunction. R/O stones, infections, spinal compression TECHNIQUE: Axial computed tomography images of the abdomen and pelvis with intravenous contrast. CTDI is 9.28 mGy and DLP is 434.39 mGy-cm. Automated exposure control was utilized for the study. A dose lowering technique was utilized adhering to the principles of ALARA. CONTRAST: Patient received 93 ml optiray 320 of IV contrast COMPARISON: No relevant prior studies available. FINDINGS: Lung bases: Unremarkable. No mass. No consolidation. ABDOMEN: Liver: Unremarkable. No mass. Gallbladder and bile ducts: Unremarkable. No calcified stones. No ductal dilation. Pancreas: Unremarkable. No mass. No ductal dilation. Spleen: Unremarkable. No splenomegaly. Adrenals: Unremarkable. No mass. Kidneys and ureters: Unremarkable. No solid mass. No hydronephrosis. Stomach and bowel: Anastomotic small bowel sutures in the anterior pelvis, correlate with surgical history. Mild fluid-filled small bowel, concerning for postoperative ileus. Moderate wall thickening, for which enteritis is also suspected. No obstruction. PELVIS: Appendix: No findings to suggest acute appendicitis. Bladder: Unremarkable. No mass. Reproductive: Unremarkable as visualized. ABDOMEN and PELVIS: Intraperitoneal space: Unremarkable. No free air. No significant fluid collection. Bones/joints: No acute fracture. No dislocation. Soft tissues: Unremarkable. Vasculature: Unremarkable. No abdominal aortic aneurysm. Lymph nodes: Unremarkable. No enlarged lymph nodes. Other findings: Recent midline laparotomy. IMPRESSION: Anastomotic small bowel sutures in the anterior pelvis, correlate with surgical history. Mild fluid-filled small bowel, concerning for postoperative ileus. Moderate wall thickening, for which enteritis is also suspected. Electronically signed by: Gee Vidal MD 11/15/23 02:18 AM Dictated: 11/15/23 0218 Transcribed: 11/15/23 0218 PG Care Time/CCT Total # of Minutes Spent Total Time Spent with Patient: Total time spent is greater than 50% in coordination of care (as documented) at patient's floor/unit and/or counseling patient: Coding Level of Care Code None Diagnoses Draining postoperative wound T81.89XA
[2023-11-15] MEDS: LORazepam 0.5 MG TAB PO PRN (10:33)
[2023-11-15] MEDS: levoFLOXacin/D5W 750 MG/150 ML BAG IV SCH (10:33)
[2023-11-15] MEDS ORDERED: levoFLOXacin 750 MG TAB PO SCH (11:00)
[2023-11-15] MEDS: oxyCODONE HCL IR 5 MG TAB (IMMEDIATE RELEASE) PO PRN (21:20)
[2023-11-15] MEDS: LORazepam 0.5 MG TAB SL STA (21:20)
[2023-11-15] MEDS: MELATONIN 3 MG TAB PO PRN (21:20)
[2023-11-15 22:52] VITALS: RESP 16
[2023-11-16] MEDS: ZOLPIDEM TARTRATE 5 MG TAB PO STA (02:14)
[2023-11-16 07:51] VITALS: BP 111/74; PULSE 84; TEMP 98.6; O2SAT 95
[2023-11-16 08:50] LABS: Hematocrit (blood only) 35.4 % (37.0-47.0); Hemoglobin 11.6 g/dl (12.0-16.0); Mean Corpuscular Hemoglobin 30.2 pg (25.0-34.0); Mean Corpuscular Hgb Conc 32.8 g/dL (32.0-36.0); Mean Corpuscular Volume 92.2 fL (80.0-100.0); Mean Platelet Volume 9.2 fL (9.4-12.4); Platelet Count 830 K/uL (130-400); RDW Standard Deviation 50.9 fL (36.4-46.3); Red Blood Count 3.84 M/uL (4.20-5.40); White Blood Count 8.85 K/ul (4.8-10.8)
[2023-11-16 09:06] LABS: BUN Creatinine Ratio 33.3 (10-20); Calcium 8.6 mg/dl (8.6-10.3); Creatinine Clr Calc Pharmacy 126.3 ml/min; Est GFR (African American) 133.5 ml/min; Est GFR (Non-African American) 115.2 ml/min; Potassium 3.9 mmol/L (3.5-5.1)
--- NOTE | 2023-11-16 11:54 | Surgery Progress Note ---
Date of Service November 16, 2023 Assessment & Plan (1) Draining postoperative wound: Plan: Surgical site infection following emergency laparotomy with small bowel resection and anastomosis, treated with opening the wound and antibiotics Okay to DC from general surgery standpoint Continue with local wound care, wet-to-dry dressing changes twice daily Home health care and neighbor support for dressing changes She is scheduled to follow-up with me on Sunday for wound check and staple removal Continue antibiotic Return precautions given, call with questions or concerns (2) Abdominal wall cellulitis: (3) Status post exploratory laparotomy: (4) S/P small bowel resection: Admission and Anticipated Discharge Date Admission Date: November 15, 2023 Subjective Status post lysis of adhesions and small bowel resection with anastomosis for perforated small bowel obstruction, readmitted with surgical site infection. She is feeling much better since the wound was opened yesterday. Drainage has decreased. Home health care is set up for her. Physical Exam Constitutional: WD/WN, vitals as above Gastrointestinal (Abdomen): normal bowel sounds, soft, nontender, no hepatosplenomegaly Inspection/Auscultation: + abdominal surgical incision (Dressing change this morning, no strikethrough) Results & Data Vital Signs (Past 12 Hours) Vital Signs Temp Pulse Pulse Resp BP BP Pulse Ox 11/16/23 10:20 37 C 84 16 111/74 103/67 95 11/16/23 07:50 37 C 84 16 111/74 95 11/16/23 07:00 85 11/16/23 02:09 36.8 C 86 16 103/67 97 O2 Del Method 11/16/23 10:20 11/16/23 07:50 Room Air 11/16/23 07:00 11/16/23 02:09 Room Air PG Care Time/CCT Total # of Minutes Spent Total Time Spent with Patient: Total time spent is greater than 50% in coordination of care (as documented) at patient's floor/unit and/or counseling patient: Coding Level of Care Code 12558 SUB INP/OBS CARE 2/35MIN Diagnoses Draining postoperative wound T81.89XA Abdominal wall cellulitis L03.311 Status post exploratory laparotomy Z98.890 S/P small bowel resection Z90.49
--- NOTE | 2023-11-16 16:02 | Discharge Summary ---
Date of Service November 16, 2023 Admission HPI Per Admitting Provider 53-year-old female with past medical history significant for esophagitis, uterine leiomyoma, postmenopausal bleeding, abnormal Pap smear of cervix with positive human papilloma virus, depression, tobacco use disorder, history of diverticulitis complicated with abscess s/p partial colectomy in 2020 was recently admitted in the hospital for high-grade small bowel obstruction and status post diagnostic laparoscopy and lysis of adhesions and exploratory laparotomy and small bowel resection with small bowel anastomosis for bowel perforation on 11/26 and was on IV Zosyn inpatient and was discharged on 11/12 with p.o. Levaquin and Flagyl comes today because around 4 PM on 11/13 she noticed drainage coming out from top fourth staple site and was foul smelling. There is erythema around the la but she says its much much better than what it was when she got discharged. Denies any abdominal pain. Denies fevers. Normal bowel and bladder movements. Ambulating okay. Denies chest pain or shortness of breath. No nausea. No headache. No runny nose or sore throat. Currently resting comfortably and hemodynamically stable. Past medical history. As mentioned above Past surgical history. Biopsy of rectum. . Colonoscopy. Hemorrhoidectomy. IR aspiration of abscess. Laparoscopic partial colectomy with colposcope ostomy. Laparoscopic repair of inguinal hernia. Ligation of oviducts. Exploratory laparotomy and small bowel resection with small bowel anastomosis for bowel perforation. Social history. . Quit smoking in 2019. Smoked half pack a day for 25 years. No alcohol use. No drug use. Family history. Maternal grandmother had breast cancer. Diabetes. Maternal grandfather had diabetes. Mother had CABG. Admission Exam Per Admitting Provider General- Not in distress Head- atraumatic Eyes- PERRL. ENT- oropharynx clear Neck- supple, no JVD. Lungs- clear to auscultation no wheezing or crackles Heart- regular rhythm; no murmur, no gallop. Abdomen- sluggish bowel sounds, soft, mild discomfort , erythema around la seen, no obvious drainage seen Extremities- no pretibial edema, no erythema seen Neuro- alert, oriented PERRL, no facial palsy; no dysarthria; moves extremities Principal Diagnosis Draining postoperative wound Abdominal wall cellulitis Discharge Exam Constitutional + well hydrated; no acute distress Eyes PERRL, conjunctivae normal, anicteric sclerae ENMT external ear and nose normal, oropharynx normal Respiratory normal respiratory effort, lungs clear to auscultation Cardiovascular RRR, no murmur, no edema Gastrointestinal (Abdomen) La in place. Erythema around surgical site improved. RN changed dressing No tenderness, soft, normal bowel sounds Musculoskeletal no cyanosis or clubbing, extremities motor strength 5/5 Neurologic PERRL, EOMI, accommodation nl, no face palsy, no dysarthria Psychiatric A+Ox3, euthymic affect Discharge Data Allergies Allergy/AdvReac Type Severity Reaction Status Date / Time fluconazole Allergy Mild Rash Unverified 11/01/23 11:38 morphine Allergy Mild Hives Unverified 11/01/23 11:38 Consultations 11/15/23 02:53 ED Decision to Admit Stat 11/15/23 08:00 Consult General Surgery Routine Ordered Studies 11/14/23 22:07 CT Abd and Pelvis [CT abd pelvis IV con only] Stat Lung bases: Unremarkable. No mass. No consolidation. ABDOMEN: Liver: Unremarkable. No mass. Gallbladder and bile ducts: Unremarkable. No calcified stones. No ductal dilation. Pancreas: Unremarkable. No mass. No ductal dilation. Spleen: Unremarkable. No splenomegaly. Adrenals: Unremarkable. No mass. Kidneys and ureters: Unremarkable. No solid mass. No hydronephrosis. Stomach and bowel: Anastomotic small bowel sutures in the anterior pelvis, correlate with surgical history. Mild fluid-filled small bowel, concerning for postoperative ileus. Moderate wall thickening, for which enteritis is also suspected. No obstruction. PELVIS: Appendix: No findings to suggest acute appendicitis. Bladder: Unremarkable. No mass. Reproductive: Unremarkable as visualized. ABDOMEN and PELVIS: Intraperitoneal space: Unremarkable. No free air. No significant fluid collection. Bones/joints: No acute fracture. No dislocation. Soft tissues: Unremarkable. Vasculature: Unremarkable. No abdominal aortic aneurysm. Lymph nodes: Unremarkable. No enlarged lymph nodes. Other findings: Recent midline laparotomy. IMPRESSION: Anastomotic small bowel sutures in the anterior pelvis, correlate with surgical history. Mild fluid-filled small bowel, concerning for postoperative ileus. Moderate wall thickening, for which enteritis is also suspected. Hospital Course (1) Draining postoperative wound: 53-year-old female with past medical history significant for esophagitis, uterine leiomyoma, postmenopausal bleeding, abnormal Pap smear of cervix with positive human papilloma virus, depression, tobacco use disorder, history of diverticulitis complicated with abscess s/p partial colectomy in 2020 was recently admitted in the hospital for high-grade small bowel obstruction and status post diagnostic laparoscopy and lysis of adhesions and exploratory laparotomy and small bowel resection with small bowel anastom Draining postoperative wound Patient recently admitted for high-grade small bowel obstruction and had exploratory laparotomy and small bowel resection with small bowel anastomosis for bowel perforation on 11/07/23 Peritoneal wound cultures grew Klebsiella and Bacteroides fragilis Patient was discharged on 11/13/23 with Levaquin and Flagyl Comes in because foul-smelling drainage coming out of fourth staple region. CT scan no obvious abscess seen Hemodynamically stable Patient was evaluated by surgeon who removed some stples in superior/mid portion of incision, expressed purulent drainage. Surgeon noted fascia is intact and changed dressing Patient was managed for surgical site infection, abdominal wall cellulitis. Patient's leukocytosis continues to trend down from recent discharge and has completely resolved today Patient discharged to continue home antibiotics till completed CM arranged home health to help with wound dressing at home Patient to follow up with surgeon Possible postoperative ileus was noted on CT scan However patient having normal oral intake and bowel movement Total Time Total Time Spent Total Time Spent (In Minutes): 35 Total Time Includes: Examination of the Patient, Discharge Planning and Medication Reconciliation Discharge Plan Discharge Items Patient Disposition: Home - Home Health Services Reason For Visit: DRAINAGE FROM RECENT ABD SURGERY SITE, CELLULITIS Discharge Diagnosis: Draining postoperative wound Condition on Discharge: Good Activity: Resume your previous activity Non-emergency contact: Primary Care Provider and Surgeon Call non-emergency contact if: you have any medication questions and your symptoms worsen Follow-up/Referrals: Stew Tomlinson DO, VALDEMAR [Physician] - 11/20/23 1:45 pm (call to schedule follow up in clinic in 7-10 days) Heather Mendoza MD [Primary Care Provider] - (Date & Time 11/22/2023 8:20 AM Provider Jesus Ferguson MD Department Family Medicine [facility] ) Diet: Regular Addtl Attending Provider Instructions: Mrs Spencer You came to the hospital due to drainage from your recent abdominal surgery. This was cleaned by surgeon. Please continue antibiotics at home and follow up with Surgeon and your Primary Doctor. It was a pleasure taking care of you. Addtl [employer] Provider Instructions: Surgeon's instruction: Pack midline opening with moist-dry (normal saline) 4x4 gauze, cover with dry 4x4 gauze/abd and medipore tape. Pending Studies at Discharge: No Stand-Alone Forms: My [facility], Smoking Cessation Medications and DC Order Prescriptions: New melatonin 3 mg Tablet 3 mg PO HS PRN (Reason: sleep) Qty: 20 0RF Continued oxycodone 5 mg tablet 5 - 10 mg PO .[id number] MDD no more than 6 tabs in 24hours PRN (Reason: pain) Qty: 15 0RF levofloxacin 750 mg tablet 750 mg PO DAILY Qty: 9 0RF metronidazole 500 mg tablet 500 mg PO Q8H Qty: 27 0RF Discharge Orders: Discharge Order (Routine); Ordered 11/16/23 Ordered By: Katrin Otoole Admission Data Admit Date/Time: 11/15/23 03:36 Attending Provider: Katrin Otoole I. Admit Provider: Emiliano Cochran Primary Care Provider: Heather Mendoza Other Providers: Paulino Zepeda; Emiliano Cochran; Clinton Stroud [facility]
== END 2023-11-16 11:55 | disposition home health service (06) | DRG 920 ==
LOC: ED 20:30 → EDINP 11-15 03:36 → 2N 11-15 04:48

== ENCOUNTER 2024-12-04 07:03 | Inpatient (IN) ==
--- NOTE | 2024-12-04 07:17 | Emergency Department Note ---
Impression & Plan Abdominal pain, Internal hernia, Pulmonary emboli ED Provider Note CHIEF COMPLAINT: Abdominal pain HISTORY OF PRESENTING ILLNESS: This 54-year-old female patient presents to the emergency department for evaluation of abdominal pain that has gotten progressively worse since yesterday. The patient states that she does have a history of a twist in her bowels. Per review of her chart, she had a laparotomy with small bowel resection and lysis of adhesions for high-grade small bowel obstruction with contained perforation in November 2023. She also has a history of diverticulitis requiring surgery and a prolonged hospital stay. She has also had hernia repairs. The patient has been having intermittent discomfort since her surgery. Yesterday the pain got significantly worse and has not improved since that time. She has not had any abdominal imaging since her surgery. The pain is all over her abdomen. She states that she has been having bowel movements recently, but sometimes has constipation. She had a small BM yesterday, but none today. She has been passing gas today. The pain is more of a burning discomfort. She does have a history of intermittent heart burn symptoms, but not currently on medication. Denies any fevers, but intermittently gets chills. She denies any urinary symptoms. Denies chest pain or SOB. Her last colonoscopy was about 1 year ago. She thinks that she has had EGDs in the past, but can't remember the last one. The patient has gone through menopause. She quit smoking 2 months ago. She had 2 sips of tea on her way to the ER. Had raspberry muffins at 7 pm last night. No food since 7 pm last night. REVIEW OF SYSTEMS: See HPI for pertinent positives and pertinent negatives. ALLERGIES: Fluconazole, Morphine MEDICATIONS: Benadryl and Melatonin QHS, Multivitamin PAST MEDICAL HISTORY: See below PHYSICAL EXAM: VITALS: Vitals are noted on the nurse's note and reviewed by myself. GENERAL: Non toxic, in no acute distress, non-diaphoretic. SKIN: Capillary refill <2 sec. EYES: PERRLA. EOMI. Conjunctivae without injection, sclerae without icterus. NOSE: Patent without discharge. MOUTH: Mucous membranes moist. Uvula midline. Airway patent. NECK: Supple without nuchal rigidity. HEART: Regular rate and rhythm without murmurs gallops or rubs. LUNGS: Clear to auscultation bilaterally without wheezes, rales or rhonchi. No retractions or accessory muscle use. ABDOMEN: Positive bowel sounds x 4. Normal tympanic percussion. Soft, diffuse tenderness to palpation with no maximal area of tenderness. No masses or hepatosplenomegaly. Vizcarra sign negative. No CVA tenderness. No guarding, rigidity, or rebound tenderness. No focal RLQ or LLQ tenderness. MUSCULOSKELETAL: No gross musculoskeletal defects. NEURO: Patient was alert and oriented. No focal neurological deficits. DIFFERENTIAL DIAGNOSIS: Differential diagnosis includes hepatitis, pancreatitis, cholecystitis, cholelithiasis, appendicitis, kidney stone, pyelonephritis, UTI, gastritis, gastroenteritis, mesenteric adenitis, obstruction, constipation, hernia, abdominal abscess, perforation, diverticulitis, IBD, ischemic colitis, abdominal aortic aneurysm, , ectopic , ovarian cyst, ovarian torsion, acute salpingitis, or others. ED COURSE AND MEDICAL DECISION MAKING: MEDICATIONS GIVEN: 1 L normal saline solution bolus. Tylenol 1000 mg IV. Pepcid 20 mg IV. Ativan 0.25 mg IV. MONITOR: Continuous monitor technician: Order was placed for continuous monitor technician. Patient was placed on the monitor technician and continuous pulse ox. Patient was noted to be in normal sinus rhythm at an initial rate of 90 bpm per my interpretation. INTERPRETATION OF LABS: I interpreted the labs with full lab results as below in the lab section of this note. Laboratory results pertinent to the emergent complaint are discussed in the MDM section below. The patient was advised to follow up with their PCP and/or specialist(s) for further outpatient monitoring and management of any abnormal results. INTERPRETATION OF IMAGING: Imaging studies were interpreted by myself and read by radiology as per the imaging section of this note. The patient was advised to follow up with their PCP and/or specialist(s) for further outpatient management of any non-emergent abnormal findings. Chest x-ray showed a 2.3 cm ill-defined left lower lung density. This could represent a small focus of pneumonia or atelectasis. Adjacent 1.3 cm left lower lung nodular density which may represent a nipple shadow, but should be assessed on follow-up chest x-ray as well. CTA of the chest and CT scan of the abdomen pelvis with IV contrast shows findings suggestive of an internal hernia within the left mid abdomen without upstream dilation or obstruction at this time. Tiny nonocclusive pulmonary emboli within the right lower lobe are likely chronic. Emphysema with suggestion of bronchitis. Prior rectosigmoid anastomosis. Colonic diverticulosis without diverticulitis. 6.6 mm right middle lobe solid pulmonary nodule. CONSULTATIONS: Dianna Ma PA-C of general surgery. On-call hospitalist. [facility] SUMMARY: I examined the patient. The patient has had intermittent abdominal pain since her surgery in November 2023 after a bowel obstruction. Yesterday, the patient developed worsening abdominal pain that has not improved. She is also having a burning pain and increased acid reflux, but not currently on acid reflux medication. She is still having bowel movements and still passing gas, but has had constipation recently. She denies any chest pain or shortness of breath. An IV lock was placed and labs were drawn. The patient was given 1 L normal saline solution bolus. She was given Tylenol 1000 mg IV and Pepcid 20 mg IV with some improvement of her pain. She requested Ativan for some anxiousness after the results of her CT scan and she was given Ativan 0.25 mg IV. White blood cell count normal at 6.38. Hemoglobin normal at 15.4. Platelet count normal at 285. CMP without significant abnormalities. Lipase normal. Urinalysis normal. Chest x-ray showed a 2.3 cm ill-defined left lower lung density. This could represent a small focus of pneumonia or atelectasis. Adjacent 1.3 cm left lower lung nodular density which may represent a nipple shadow, but should be assessed on follow-up chest x-ray as well. Due to the abnormal chest x-ray, CT of the chest was obtained. CTA of the chest and CT scan of the abdomen pelvis with IV contrast shows findings suggestive of an internal hernia within the left mid abdomen without upstream dilation or obstruction at this time. Tiny nonocclusive pulmonary emboli within the right lower lobe are likely chronic. Emphysema with suggestion of bronchitis. Prior rectosigmoid anastomosis. Colonic diverticulosis without diverticulitis. 6.6 mm right middle lobe solid pulmonary nodule. I spoke with Dianna Ma PA-C of general surgery who presented to the emergency department to evaluate the patient. She recommended an NG tube be placed. She recommended that the patient be conservatively treated like a small bowel obstruction at this time, but surgical intervention may be required at a later time. She recommended the patient be admitted to medicine. She stated that heparin would be a good choice if treatment for the tiny chronic PEs given the chance for potential surgery pending the patient's clinical course. Please refer to her dictation for further details. I spoke with the on-call hospitalist who agreed to admit the patient for further evaluation and treatment. Please refer to their dictation for further details. The patient's care was transferred in stable condition. DIAGNOSIS: Abdominal pain Internal hernia Pulmonary emboli Past Med/Surg History Problem List (Updated 12/04/24 @ 15:34 by Josefa Garcia PA-C) Pulmonary emboli (Acute) Internal hernia (Acute) Draining postoperative wound Abdominal wall cellulitis (Acute) Status post exploratory laparotomy Bowel perforation Peritonitis, acute generalized S/P small bowel resection (Acute) Nausea & vomiting (Acute) Abdominal pain (Acute) SBO (small bowel obstruction) (Acute) Medical History Depression GERD (gastroesophageal reflux disease) Diverticulitis Surgical History H/O laparoscopy (11/07/23) diagnostic laparoscopy, lysis of adhesions, exploratory laparotomy, Small Bowel Resection with small bowel anastomosis- Stew Tomlinson, , FACS Hx of colectomy 2020 Laparoscopic partial colectomy with coloproctostomy Hx of hemorrhoidectomy Hx of tubal ligation Hx of section Family History Grandmother (Maternal) Diabetes Social History Smoking Status: Former smoker Tobacco Type: Cigarettes Do You Dip or Chew Tobacco: No; Hx Alcohol Use: No Hx Substance Use: No Preferred Language: Latvian Communication Ability: Effective Visual Impairment: No Limitations Thread Machine Operator Required: No Beliefs That Will Affect Care: None marital status: Current Living Situation: Spouse and Family current occupational status: employed Feels Safe at Home: Yes Assistive Devices: None Allergies Allergies Allergy/AdvReac Type Severity Reaction Status Date / Time fluconazole Allergy Mild Rash Unverified 03/06/24 17:14 morphine Allergy Mild Hives Unverified 03/06/24 17:14 Home Meds Home Medications Medication Instructions Recorded Confirmed diphenhydramine HCl 25 mg capsule 25 mg PO HS 12/04/24 12/04/24 (Benadryl) melatonin 10 mg tablet 10 - 20 mg PO HS 12/04/24 12/04/24 multivitamin 1 tab PO QAM 12/04/24 12/04/24 Results & Data (ED) Vital Signs Vital Signs - 24 hr 12/04/24 07:04 12/04/24 07:04 12/04/24 07:50 Temperature 36.6 C Temperature Source Temporal Artery Scan Pulse Rate 90 65 Pulse Rate [Apical] Pulse Rhythm Regular Pulse Rhythm [Apical] Pulse Strength [Apical] Respiratory Rate 18 16 14 Respiratory Effort / Characteristics Respiratory Depth Normal Blood Pressure 144/99 H Blood Pressure [Left Arm] Blood Pressure Mean 114 Blood Pressure Mean [Left Arm] Blood Pressure Position [Left Arm] Pulse Oximetry 99 99 Oxygen Delivery Method Room Air Sepsis Recent Fever Within 48 Hours No Sepsis New/Unexplained Change in Mental Status N/A Sepsis Action Taken by Nursing No Action Required 12/04/24 07:50 12/04/24 07:58 12/04/24 08:12 Temperature Temperature Source Pulse Rate 67 66 Pulse Rate [Apical] 65 Pulse Rhythm Pulse Rhythm [Apical] Regular Pulse Strength [Apical] Normal Respiratory Rate 14 20 Respiratory Effort / Characteristics Non-Labored Spontaneous Respiratory Depth Normal Blood Pressure 153/87 H Blood Pressure [Left Arm] 139/93 Blood Pressure Mean 90 Blood Pressure Mean [Left Arm] 108 Blood Pressure Position [Left Arm] Sitting Pulse Oximetry 99 98 Oxygen Delivery Method Room Air Sepsis Recent Fever Within 48 Hours Sepsis New/Unexplained Change in Mental Status Sepsis Action Taken by Nursing 12/04/24 08:30 12/04/24 09:00 12/04/24 09:46 Temperature Temperature Source Pulse Rate 64 63 68 Pulse Rate [Apical] Pulse Rhythm Pulse Rhythm [Apical] Pulse Strength [Apical] Respiratory Rate 19 19 15 Respiratory Effort / Characteristics Respiratory Depth Blood Pressure 116/77 126/79 138/86 Blood Pressure [Left Arm] Blood Pressure Mean 95 94 96 Blood Pressure Mean [Left Arm] Blood Pressure Position [Left Arm] Pulse Oximetry 98 98 100 Oxygen Delivery Method Sepsis Recent Fever Within 48 Hours Sepsis New/Unexplained Change in Mental Status Sepsis Action Taken by Nursing 12/04/24 10:00 12/04/24 10:30 12/04/24 12:13 Temperature Temperature Source Pulse Rate 69 65 70 Pulse Rate [Apical] Pulse Rhythm Pulse Rhythm [Apical] Pulse Strength [Apical] Respiratory Rate 18 18 Respiratory Effort / Characteristics Respiratory Depth Blood Pressure 99/62 L 143/87 H Blood Pressure [Left Arm] Blood Pressure Mean 78 101 Blood Pressure Mean [Left Arm] Blood Pressure Position [Left Arm] Pulse Oximetry 99 98 Oxygen Delivery Method Sepsis Recent Fever Within 48 Hours Sepsis New/Unexplained Change in Mental Status Sepsis Action Taken by Nursing Laboratory Data 12/04/24 07:47 12/04/24 07:47 Lab Results 12/04/24 12/04/24 Range/Units 07:47 07:48 WBC 6.38 (4.8-10.8) K/ul RBC 5.09 (4.20-5.40) M/uL Hgb 15.4 (12.0-16.0) g/dl Hct 46.8 (37.0-47.0) % MCV 91.9 (80.0-100.0) fL MCH 30.3 (25.0-34.0) pg MCHC 32.9 (32.0-36.0) g/dL RDW Std Deviation 42.3 (36.4-46.3) fL RDW Coeff of Thong 12.4 (11.5-14.5) % Plt Count 285 (130-400) K/uL MPV 9.8 (9.4-12.4) fL Immature Gran % (Auto) 0.2 % Neut % (Auto) 65.0 % Lymph % (Auto) 25.9 % Gentry % (Auto) 6.0 % Eos % (Auto) 2.0 % Baso % (Auto) 0.9 % Neut # (Auto) 4.15 (1.40-6.50) K/uL Lymph # (Auto) 1.65 (1.20-3.40) K/uL Gentry # (Auto) 0.38 (0.11-0.59) K/uL Eos # (Auto) 0.13 (0.00-0.50) K/uL Baso # (Auto) 0.06 (0.00-0.20) K/uL Immature Gran # (Auto) 0.01 (0.01-0.20) K/uL Sodium 142 (136-145) mmol/L Potassium 3.8 (3.5-5.1) mmol/L Chloride 106 (98-107) mmol/L Carbon Dioxide 29 (21-32) mmol/L Anion Gap 7 (3-11) BUN 15 (6-23) mg/dl Creatinine 0.63 (0.6-1.2) mg/dl Est Cr Clr Drug Dosing 89.2 ml/min eGFR 106.01 BUN/Creatinine Ratio 23.8 H (10-20) Glucose 86 (70-99(Fasting)) mg/dl Calcium 9.2 (8.6-10.3) mg/dl Total Bilirubin 0.5 (0.2-1.0) mg/dl AST 15 (13-39) U/L ALT 11 (7-52) U/L Alkaline Phosphatase 53 (34-104) U/L Total Protein 7.3 (6.0-8.3) gm/dl Albumin 4.5 (3.4-5.0) gm/dl Globulin 2.8 (2.5-4.0) gm/dl Albumin/Globulin Ratio 1.6 (0.9-2) Lipase 17 (11-82) U/L Urine Color Yellow Urine Appearance Clear (Clear) Urine pH 6.5 (4.5-7.5) Ur Specific Robert Lee 1.010 (1.000-1.030) Urine Protein Negative (Negative) Urine Glucose (UA) Negative (Negative) Urine Ketones Negative (Negative) Urine Blood Negative (Negative) Urine Nitrite Negative (Negative) Urine Bilirubin Negative (Negative) Urine Urobilinogen Negative (Negative) Ur Leukocyte Esterase Negative (Negative) Urine Comment Administered Medications Discontinued Medications Sodium Chloride (Nss) 1,000 mls @ 999 mls/hr IV .Q1H1M ONE Stop: 12/04/24 08:27 Last Infusion: 12/04/24 10:04 Dose: Infused Documented By: Admin: 12/04/24 07:50 Dose: 999 mls/hr Documented By: brittany Acetaminophen (Ofirmev) 1,000 mg in 100 mls @ 400 mls/hr IV NOW STA Stop: 12/04/24 07:41 Last Infusion: 12/04/24 08:10 Dose: Infused Documented By: brittany Admin: 12/04/24 07:50 Dose: 400 mls/hr Documented By: brittany Famotidine (Pepcid 20mg Iv Push) 20 mg in 5 mls @ 2.5 mls/min IV NOW STA Stop: 12/04/24 07:28 Last Admin: 12/04/24 07:50 Dose: 2.5 mls/min Documented By: brittany Ioversol (Optiray 320 125ml) 120 ml IV ONCE ONE Stop: 12/04/24 09:37 Last Admin: 12/04/24 09:36 Dose: 120 ml Documented By: [email or web address] Lorazepam (Lorazepam 1 Mg/1 Ml Syr Ed Inj Use) 0.25 mg IV ONE STA Stop: 12/04/24 11:04 Last Admin: 12/04/24 11:35 Dose: 0.25 mg Documented By: nishi Imaging Data Radiologist's Impression: Abdomen/Pelvis CT 12/04/24 07:28 CT angio chest PE protocol, CT abd pelvis IV con only CT DOSE: 1337.03 mGy.cm HISTORY: 54 years-old Female with PE. Acute shortness of breath with chest and abdominal pain TECHNIQUE: Multiple CTA images of the chest were obtained after the intravenous administration of 120 ml Optiray. Coronal and sagittal MIPS were obtained from the axial data set and were submitted for review. All measurements were obtained according to NASCET criteria. CT abdomen and pelvis with IV contrast only was also obtained. A dose lowering technique was utilized adhering to the principles of ALARA. COMPARISON: CT abdomen and pelvis 11/14/2023 FINDINGS: CTA: Heart is normal in size. No pericardial effusion. Mild atherosclerosis of the thoracic aorta without aortic aneurysm or dissection. Tiny linear filling defects were noted within segmental pulmonary arterial branches within the right lower lobe, image 132 series 5 which appear nonocclusive and likely chronic. No additional pulmonary emboli are identified. CT CHEST: 9 mm hypodense left thyroid nodule. Nonspecific 11 mm right hilar lymph node on image 156. No mediastinal or axillary lymphadenopathy. Mild pulmonary emphysema with bronchial wall thickening suggestive of bronchitis. Mild subsegmental right basilar atelectasis. 6 cm solid pulmonary nodule of the right middle lobe, image 129. Subpleural bleb formation of the lung apices. Unremarkable soft tissues. No acute fracture. CT ABDOMEN/PELVIS: No pneumatosis or pneumoperitoneum. Unremarkable spleen, pancreas, gallbladder and adrenal glands. The liver is within normal limits. Patency of the hepatic and portal veins. Small cyst of the inferior pole left kidney. No hydronephrosis. Mild nonspecific bladder wall thickening. 6.2 cm soft tissue attenuating uterine mass is similar to prior, likely a uterine leiomyoma. Stable 3.2 cm cystic structures in the pelvis was imaged to 24 series 8. Atherosclerosis of the aorta. No lymphadenopathy. No bowel obstruction or bowel wall thickening. Anastomotic suture within the rectosigmoid. Colonic diverticulosis. Mild colonic fecal retention. Noninflamed appendix. Small bowel anastomosis within the left mid abdomen on image 175. There is an incidental likely transient jejunal jejunal intussusception within the left mid abdomen on image 132 series without upstream dilation, wall thickening or adjacent inflammatory stranding. There is however twisting of the left lower quadrant mesentery with focal narrowing/whirling of the adjacent small bowel loops, image 22 series 8 with trace edema within this distribution. No acute fracture. IMPRESSION: 1. Findings suggestive of an internal hernia within the left mid abdomen without upstream dilation or obstruction at this time. If symptoms persist, short-term follow-up CT may be considered. 2. Tiny nonocclusive pulmonary emboli within the right lower lobe are likely chronic. 3. Emphysema with suggestion of bronchitis. 4. Prior rectosigmoid anastomosis. 5. Colonic diverticulosis without acute diverticulitis. 6. 6 mm right middle lobe solid pulmonary nodule. Please refer to below summary of Fleischner criteria recommendations for follow- up of incidental CT nodules (Carlos Taylor, Guidelines for management of small pulmonary nodules detected on CT scans: A statement from the Fleischner Society, Radiology 237: [phone].) SOLID NODULES Solitary nodule size: 6-8 mm * Low risk patients: follow-up at 6-12 months, then consider further follow-up at 18-24 months * high risk patients: initial follow-up CT at 6-12 months and then at 18-24 months if no change Note: newly detected indeterminate nodule in persons 35 years of age or older. * Low risk patients: minimal or absent history of smoking and/or other known risk factors * high risk patients: history of smoking or of other known risk factors (e.g. first degree relative with lung cancer, or exposure to asbestos, radon, uranium) * if a nodule up to 8 mm is partly solid or is ground glass further follow-up is required after 24 months to exclude possible slow growing adenocarcinoma (DEEPTHI) ACT 112: Negative or not required by law. The above report was generated using voice recognition software. It may contain grammatical, syntax or spelling errors. Electronically signed by: Ángel Newell M.D. 12/04/2024 10:13 AM Chest X-Ray 12/04/24 07:28 XR chest 1V portable CLINICAL HISTORY: Abdominal pain. COMPARISON STUDY: Chest radiograph November 08, 2023. FINDINGS: Lung volumes are normal. A 1.3 cm nodular left lower lung density may represent a nipple shadow. Adjacent 2.3 cm ill-defined left lower lung densities present. There is no pneumothorax or pleural effusion. Cardiac size is normal. Mediastinal contours are normal. There is no evidence for pulmonary edema. IMPRESSION: 1. 2.3 cm ill-defined left lower lung density. This could represent a small focus of pneumonia or atelectasis. Radiographic follow-up to ensure resolution is recommended. 2. Adjacent 1.3 cm left lower lung nodular density. This may represent a nipple shadow but should be assessed on follow-up chest x-ray as well. ACT 112: Negative or not required by law. Electronically signed by: Gordo Chun M.D. 12/04/2024 8:04 AM Chest CTA 12/04/24 08:21 CT angio chest PE protocol, CT abd pelvis IV con only CT DOSE: 1337.03 mGy.cm HISTORY: 54 years-old Female with PE. Acute shortness of breath with chest and abdominal pain TECHNIQUE: Multiple CTA images of the chest were obtained after the intravenous administration of 120 ml Optiray. Coronal and sagittal MIPS were obtained from the axial data set and were submitted for review. All measurements were obtained according to NASCET criteria. CT abdomen and pelvis with IV contrast only was also obtained. A dose lowering technique was utilized adhering to the principles of ALARA. COMPARISON: CT abdomen and pelvis 11/14/2023 FINDINGS: CTA: Heart is normal in size. No pericardial effusion. Mild atherosclerosis of the thoracic aorta without aortic aneurysm or dissection. Tiny linear filling defects were noted within segmental pulmonary arterial branches within the right lower lobe, image 132 series 5 which appear nonocclusive and likely chronic. No additional pulmonary emboli are identified. CT CHEST: 9 mm hypodense left thyroid nodule. Nonspecific 11 mm right hilar lymph node on image 156. No mediastinal or axillary lymphadenopathy. Mild pulmonary emphysema with bronchial wall thickening suggestive of bronchitis. Mild subsegmental right basilar atelectasis. 6 cm solid pulmonary nodule of the right middle lobe, image 129. Subpleural bleb formation of the lung apices. Unremarkable soft tissues. No acute fracture. CT ABDOMEN/PELVIS: No pneumatosis or pneumoperitoneum. Unremarkable spleen, pancreas, gallbladder and adrenal glands. The liver is within normal limits. Patency of the hepatic and portal veins. Small cyst of the inferior pole left kidney. No hydronephrosis. Mild nonspecific bladder wall thickening. 6.2 cm soft tissue attenuating uterine mass is similar to prior, likely a uterine leiomyoma. Stable 3.2 cm cystic structures in the pelvis was imaged to 24 series 8. Atherosclerosis of the aorta. No lymphadenopathy. No bowel obstruction or bowel wall thickening. Anastomotic suture within the rectosigmoid. Colonic diverticulosis. Mild colonic fecal retention. Noninflamed appendix. Small bowel anastomosis within the left mid abdomen on image 175. There is an incidental likely transient jejunal jejunal intussusception within the left mid abdomen on image 132 series without upstream dilation, wall thickening or adjacent inflammatory stranding. There is however twisting of the left lower quadrant mesentery with focal narrowing/whirling of the adjacent small bowel loops, image 22 series 8 with trace edema within this distribution. No acute fracture. IMPRESSION: 1. Findings suggestive of an internal hernia within the left mid abdomen without upstream dilation or obstruction at this time. If symptoms persist, short-term follow-up CT may be considered. 2. Tiny nonocclusive pulmonary emboli within the right lower lobe are likely chronic. 3. Emphysema with suggestion of bronchitis. 4. Prior rectosigmoid anastomosis. 5. Colonic diverticulosis without acute diverticulitis. 6. 6 mm right middle lobe solid pulmonary nodule. Please refer to below summary of Fleischner criteria recommendations for follow- up of incidental CT nodules (Carlos Taylor, Guidelines for management of small pulmonary nodules detected on CT scans: A statement from the Fleischner Society, Radiology 237: [phone].) SOLID NODULES Solitary nodule size: 6-8 mm * Low risk patients: follow-up at 6-12 months, then consider further follow-up at 18-24 months * high risk patients: initial follow-up CT at 6-12 months and then at 18-24 months if no change Note: newly detected indeterminate nodule in persons 35 years of age or older. * Low risk patients: minimal or absent history of smoking and/or other known risk factors * high risk patients: history of smoking or of other known risk factors (e.g. first degree relative with lung cancer, or exposure to asbestos, radon, uranium) * if a nodule up to 8 mm is partly solid or is ground glass further follow-up is required after 24 months to exclude possible slow growing adenocarcinoma (DEEPTHI) ACT 112: Negative or not required by law. The above report was generated using voice recognition software. It may contain grammatical, syntax or spelling errors. Electronically signed by: Ángel Newell M.D. 12/04/2024 10:13 AM Venous Doppler Study 12/04/24 12:46 BILATERAL LOWER EXTREMITY VENOUS DOPPLER HISTORY: R/o DVT COMPARISON STUDY: None FINDINGS: No evidence of DVT seen at the lower extremities. IMPRESSION: No DVT seen. ACT 112: Negative or not required by law. Electronically signed by: Stew Goodrich M.D. 12/04/2024 3:18 PM KUB X-Ray 12/04/24 14:12 KUB HISTORY: Ng Tube placement COMPARISON STUDY: 11/07/2023 FINDINGS: Nasogastric tube tip is in the proximal stomach with the sidehole just beyond the GE junction. IMPRESSION: Nasogastric tube as described. ACT 112: Negative or not required by law. The above report was generated using voice recognition software. It may contain grammatical, syntax or spelling errors. Electronically signed by: Stew Goodrich M.D. 12/04/2024 2:40 PM Discharge Plan Visit Data Chief Complaint: Abdominal Pain Stated Complaint: ABDOMINAL PAIN/DISCOMFORT ED Provider: Carlos Enrique Mathis ED Midlevel Provider: Josefa Garcia Discharge Problem: Abdominal pain, Internal hernia, Pulmonary emboli Patient Disposition: Admitted As Inpatient Condition: Fair Forms Stand Alone Forms: [employer] Prescriptions Prescriptions: No Action multivitamin Tablet 1 tab PO QAM diphenhydramine HCl [Benadryl] 25 mg Capsule 25 mg PO HS melatonin 10 mg Tablet 10 - 20 mg PO HS Referrals Referrals: Heather Mendoza MD [Primary Care Provider] - Discharge Problem: Abdominal pain Qualifiers: Abdominal location: generalized Qualified Code(s): R10.84 - Generalized abdominal pain Pulmonary emboli Qualifiers: Pulmonary embolism type: unspecified
[2024-12-04] MEDS: ACETAMINOPHEN 1,000 MG/100 ML VIAL IV STA (07:50)
[2024-12-04] MEDS: SODIUM CHLORIDE 0.9% 1,000 ML IV ONE (07:50)
[2024-12-04] MEDS: FAMOTIDINE 20MG IV PUSH 20 MG/5 ML SYR IV STA (07:50)
--- NOTE | 2024-12-04 08:05 | XRay Report ---
XR chest 1V portable CLINICAL HISTORY: Abdominal pain. COMPARISON STUDY: Chest radiograph November 08, 2023. FINDINGS: Lung volumes are normal. A 1.3 cm nodular left lower lung density may represent a nipple sh adow. Adjacent 2.3 cm ill-defined left lower lung densities present. There is no pneumothorax or pleu ral effusion. Cardiac size is normal. Mediastinal contours are normal. There is no evidence for pulmo nary edema. IMPRESSION: 1. 2.3 cm ill-defined left lower lung density. This could represent a small focus of pneumonia or ate lectasis. Radiographic follow-up to ensure resolution is recommended. 2. Adjacent 1.3 cm left lower lung nodular density. This may represent a nipple shadow but should be assessed on follow-up chest x-ray as well. ACT 112: Negative or not required by law. Electronically signed by: Gordo Chun M.D. 12/04/2024 8:04 AM
[2024-12-04 08:18] LABS: Hematocrit (blood only) 46.8 % (37.0-47.0); Hemoglobin 15.4 g/dl (12.0-16.0); Immature Granulocytes # (auto) 0.01 K/uL (0.01-0.20); Immature Granulocytes % (auto) 0.2 %; Mean Corpuscular Hemoglobin 30.3 pg (25.0-34.0); Mean Corpuscular Volume 91.9 fL (80.0-100.0); Platelet Count 285 K/uL (130-400); RDW Standard Deviation 42.3 fL (36.4-46.3); Red Blood Count 5.09 M/uL (4.20-5.40); White Blood Count 6.38 K/ul (4.8-10.8)
[2024-12-04 08:38] LABS: Appearance Urine Clear (Clear); Glucose Urine UA Negative (Negative)
[2024-12-04 08:47] LABS: Alanine Aminotransferase 11.0 U/L (7-52); Albumin Globulin Ratio 1.6 (0.9-2); Albumin Level 4.5 gm/dl (3.4-5.0); Alkaline Phosphatase 53.0 U/L (34-104); Anion Gap 7.0 (3-11); Bilirubin,Total 0.5 mg/dl (0.2-1.0); Blood Urea Nitrogen 15.0 mg/dl (6-23); Calcium 9.2 mg/dl (8.6-10.3); Carbon Dioxide 29.0 mmol/L (21-32); Chloride 106.0 mmol/L (98-107); Creatinine Clr Calc Pharmacy 89.2 ml/min; Globulin 2.8 gm/dl (2.5-4.0); Glucose 86.0 mg/dl (70-99(Fasting)); Lipase 17.0 U/L (11-82); Potassium 3.8 mmol/L (3.5-5.1); Sodium 142.0 mmol/L (136-145); Total Protein 7.3 gm/dl (6.0-8.3)
[2024-12-04] MEDS: OPTIRAY 320 125ml IV ONE (09:36)
--- NOTE | 2024-12-04 10:14 | CT Scan Report ---
CT angio chest PE protocol, CT abd pelvis IV con only CT DOSE: 1337.03 mGy.cm HISTORY: 54 years-old Female with PE. Acute shortness of breath with chest and abdominal pain TECHNIQUE: Multiple CTA images of the chest were obtained after the intravenous administration of 120 ml Optiray. Coronal and sagittal MIPS were obtained from the axial data set and were submitted for review. All measurements were obtained according to NASCET criteria. CT abdomen and pelvis with IV c ontrast only was also obtained. A dose lowering technique was utilized adhering to the principles of ALARA. COMPARISON: CT abdomen and pelvis 11/14/2023 FINDINGS: CTA: Heart is normal in size. No pericardial effusion. Mild atherosclerosis of the thoracic aorta without aortic aneurysm or dissection. Tiny linear filling defects were noted within segmental pulmonary ismael rial branches within the right lower lobe, image 132 series 5 which appear nonocclusive and likely ch ronic. No additional pulmonary emboli are identified. CT CHEST: 9 mm hypodense left thyroid nodule. Nonspecific 11 mm right hilar lymph node on image 156. No mediast inal or axillary lymphadenopathy. Mild pulmonary emphysema with bronchial wall thickening suggestive of bronchitis. Mild subsegmental right basilar atelectasis. 6 cm solid pulmonary nodule of the right middle lobe, image 129. Subpleural bleb formation of the lung apices. Unremarkable soft tissues. No a cute fracture. CT ABDOMEN/PELVIS: No pneumatosis or pneumoperitoneum. Unremarkable spleen, pancreas, gallbladder and adrenal glands. Th e liver is within normal limits. Patency of the hepatic and portal veins. Small cyst of the inferior pole left kidney. No hydronephrosis. Mild nonspecific bladder wall thickening. 6.2 cm soft tissue att enuating uterine mass is similar to prior, likely a uterine leiomyoma. Stable 3.2 cm cystic structure s in the pelvis was imaged to 24 series 8. Atherosclerosis of the aorta. No lymphadenopathy. No bowel obstruction or bowel wall thickening. Anastomotic suture within the rectosigmoid. Colonic di verticulosis. Mild colonic fecal retention. Noninflamed appendix. Small bowel anastomosis within the left mid abdomen on image 175. There is an incidental likely transient jejunal jejunal intussusceptio n within the left mid abdomen on image 132 series without upstream dilation, wall thickening or adjac ent inflammatory stranding. There is however twisting of the left lower quadrant mesentery with focal narrowing/whirling of the adjacent small bowel loops, image 22 series 8 with trace edema within this distribution. No acute fracture. IMPRESSION: 1. Findings suggestive of an internal hernia within the left mid abdomen without upstream dilation or obstruction at this time. If symptoms persist, short-term follow-up CT may be considered. 2. Tiny nonocclusive pulmonary emboli within the right lower lobe are likely chronic. 3. Emphysema with suggestion of bronchitis. 4. Prior rectosigmoid anastomosis. 5. Colonic diverticulosis without acute diverticulitis. 6. 6 mm right middle lobe solid pulmonary nodule. Please refer to below summary of Fleischner criteria recommendations for follow-up of incidental CT n odules (Carlos Taylor, Guidelines for management of small pulmonary nodules detected on CT scans: A sta tement from the Fleischner Society, Radiology 237: [id number].) SOLID NODULES Solitary nodule size: 6-8 mm * Low risk patients: follow-up at 6-12 months, then consider further follow-up at 18-24 months * high risk patients: initial follow-up CT at 6-12 months and then at 18-24 months if no change Note: newly detected indeterminate nodule in persons 35 years of age or older. * Low risk patients: minimal or absent history of smoking and/or other known risk factors * high risk patients: history of smoking or of other known risk factors (e.g. first degree relative with lung cancer, or exposure to asbestos, radon, uranium) * if a nodule up to 8 mm is partly solid or is ground glass further follow-up is required after 24 m onths to exclude possible slow growing adenocarcinoma (DEEPTHI) ACT 112: Negative or not required by law. The above report was generated using voice recognition software. It may contain grammatical, syntax o r spelling errors. Electronically signed by: Ángel Newell M.D. 12/04/2024 10:13 AM
[2024-12-04] MEDS: LORazepam 1 MG/1 ML SYR ED Inj Use IV STA ×2 (11:35→15:51)
--- NOTE | 2024-12-04 12:36 | History & Physical Report ---
Date of Service December 04, 2024 Assessment & Plan (1) Abdominal pain: (2) Internal hernia: (3) Pulmonary emboli: Plan Patient is a 54-year-old female with past medical history significant for complicated diverticulitis in August 2020 s/p laparoscopic sigmoid colectomy and small bowel resection, right inguinal hernia s/p laparoscopic repair with mesh in August 2022, high-grade small bowel obstruction with 2 areas of contained perforation on the mesenteric side of the bowel in November 2023 s/p exploratory laparotomy with small bowel resection, tobacco use, GERD, history of esophagitis and depression who presented to the ED with complaints of abdominal pain and discomfort. Confinement under our service for high-grade small bowel obstruction with 2 areas of contained perforation on the mesenteric side of the bowel in November 2023 s/p exploratory laparotomy with small bowel resection performed by Dr. Tomlinson. Patient with intermittent abdominal discomfort since this operation. Typically located in left mid abdominal region. Usually crampy in nature. Now with rather persistent "burning-like" pain in left mid and left lower abdominal regions since yesterday with associated poor po intake, nausea. Passing flatus, last BM yesterday. #Abdominal pain #Internal hernia within the left mid abdomen without upstream dilation or obstruction at this time seen on CTAP CTAP also with twisting of the left lower quadrant mesentery with focal narrowing/whorling of the adjacent small bowel loops Case discussed between ED provider and on-call general surgeon, Dr. Sanchez -Recommending conservative management with bowel rest, IVF, as needed analgesia and NGT for decompression with close monitoring -Would benefit from SBFT study as an outpatient if she does not require surgical intervention this hospitalization #GERD Currently not medicated for this Ongoing GERD related symptoms for several years, seemingly worsened over the past 2 months (more persistent) IV Protonix twice daily for now while on bowel rest, monitor response Will then need to transition to daily PPI use, like BID for 4-6wk to begin then to once a day dosing thereafter Unclear if patient previously had EGD performed - did not find any records of such in Epic History of esophagitis per records Recommend routine EGD as an outpatient once above resolved for further evaluation unless symptoms drastically worsen then can pursue while inpatient #Incidental imaging finding: tiny nonocclusive pulmonary emboli within the right lower lobe which are likely chronic Patient asymptomatic in this regard, not requiring any supplemental O2 Unclear etiology and duration of existence - not previously seen on prior imaging per patient No known family history of blood clots or blood clotting disorders per patient Will check bilateral lower extremity venous Doppler US for further evaluation For now will hold off any anticoagulation therapy pending venous Doppler US results Will need to arrange outpatient hematology evaluation for hypercoagulable workup #Incidental imaging findinmm right middle lobe solid pulmonary nodule Longtime smoker, attempting to quit; cessation encouraged Recommend follow-up chest CT at 6 to 12 months and then at 18 to 24 months if no change as per Fleischner criteria Will need to coordinate follow-up with PCP regarding this #Incidental imaging findinmm hypodense left thyroid nodule seen on chest CTA/CTAP Check TSH in a.m. Will need to arrange outpatient thyroid US for further evaluation, can be arranged by PCP #Incidental imaging finding: mild pulmonary emphysema with bronchial wall thickening suggestive of bronchitis Patient asymptomatic in this regard, has chronic nonproductive cough but feels unchanged from baseline No reported fevers or congestion otherwise Again smoking cessation encouraged - offered nicotine patch but patient would like to hold off on this for now, can readdress as needed Do not feel patient requiring ABX at this time for management of bronchitis, monitor for any clinical changes #Incidental imaging finding: mild subsegmental right basilar atelectasis Seen on chest CTA/CTAP, ISP ordered #Incidental imaging findin.2cm soft tissue attenuating uterine mass is similar to prior, likely a uterine leiomyoma No reported vaginal bleeding, postmenopausal Recommend follow-up as an outpatient, can arrange vaginal US with [facility] for further evaluation #Incidental imaging finding: atherosclerosis of the aorta Check a.m. lipid panel Patient's mother with history of coronary bypass surgery Need to consider starting statin therapy for preventative measure, follow up on lipid panel results DVT Prophylaxis: SQ Lovenox Code Status: FULL CODE PCP: Heather Mendoza MD Disposition: Observation in med/surg Patient seen in collaboration with Dr. Norman. Please see addendum. I spent a total of 64 minutes coordinating, documenting, and providing care for this patient excluding time spent in the performance of separately billed services or time spent by another provider/QHP. This included personally reviewing all current laboratories and imaging studies, medical reconciliation, outpatient chart review and discussion with specialists. This chart was completed in part utilizing Speech Voice Recognition Software. Grammatical errors, random word insertions, pronoun errors, and incomplete sentences are an occasional consequence of this system due to software limitations, ambient noise, and hardware issues. Any formal questions or concerns about the content, text, or information contained within the body of this dictation should be directly addressed to the provider for clarification. History of Present Illness Chief Complaint: Abdominal pain Primary Care Provider: Heather Mendoza MD Patient is a 54-year-old female with past medical history significant for complicated diverticulitis in August 2020 s/p laparoscopic sigmoid colectomy and small bowel resection, right inguinal hernia s/p laparoscopic repair with mesh in August 2022, high-grade small bowel obstruction with 2 areas of contained perforation on the mesenteric side of the bowel in November 2023 s/p exploratory laparotomy with small bowel resection, tobacco use, GERD, history of esophagitis and depression who presented to the ED with complaints of abdominal pain and discomfort. History obtained from the patient, patient's significant other at bedside, discussion with ED provider and associated chart review. Confinement under our service for high-grade small bowel obstruction with 2 areas of contained perforation on the mesenteric side of the bowel in November 2023 s/p exploratory laparotomy with small bowel resection performed by Dr. Tomlinson. Admits to having some intermittent left-sided abdominal discomfort since her surgery last November. Notes this would occasionally come and go. However, since yesterday, she has been experiencing left mid abdominal pain which has been pretty persistent. Describes it as a burning sensation. Poor oral intake. Tolerating sips of fluid, had a chicken breast from [facility] last night. Mild nausea. No vomiting. Last BM yesterday. Passing flatus. Has been experiencing some intermittent esophageal reflux symptoms over the past several years but these seem to be more persistent over the last 2 months. Not currently on any PPIs or H2 blockers. No reported fevers. Denies any congestion or chest pain. Chronic cough which feels unchanged from baseline. Longtime smoker, attempting to wean off. Last cigarette use yesterday. No alcohol use. No recreational drug use. Allergies Allergy/AdvReac Type Severity Reaction Status Date / Time fluconazole Allergy Mild Rash Unverified 03/06/24 17:14 morphine Allergy Mild Hives Unverified 03/06/24 17:14 Home Medications Medication Instructions Recorded Confirmed Type diphenhydramine HCl 25 mg capsule 25 mg PO HS 12/04/24 12/04/24 History (Benadryl) melatonin 10 mg tablet 10 - 20 mg PO HS 12/04/24 12/04/24 History multivitamin 1 tab PO QAM 12/04/24 12/04/24 History Past Med/Surg History Problem List Pulmonary emboli Internal hernia Draining postoperative wound Abdominal wall cellulitis (Acute) Status post exploratory laparotomy Bowel perforation Peritonitis, acute generalized S/P small bowel resection (Acute) Nausea & vomiting (Acute) Abdominal pain (Acute) SBO (small bowel obstruction) (Acute) Medical History Depression GERD (gastroesophageal reflux disease) Diverticulitis Surgical History H/O laparoscopy (11/07/23) diagnostic laparoscopy, lysis of adhesions, exploratory laparotomy, Small Bowel Resection with small bowel anastomosis- Stew Tomlinson, , FACS Hx of colectomy 2020 Laparoscopic partial colectomy with coloproctostomy Hx of hemorrhoidectomy Hx of tubal ligation Hx of section Family History Grandmother (Maternal) Diabetes Social History Smoking Status: Former smoker Tobacco Type: Cigarettes Do You Dip or Chew Tobacco: No; Hx Alcohol Use: No Hx Substance Use: No Preferred Language: Kyrgyz Communication Ability: Effective Visual Impairment: No Limitations Apartment Maintenance Technician Required: No Beliefs That Will Affect Care: None marital status: Current Living Situation: Spouse and Family current occupational status: employed Feels Safe at Home: Yes Assistive Devices: None Review of Systems Review of Systems: At least ten systems reviewed and negative, except as noted in the HPI. Physical Exam Physical Exam: General: F, NAD, laying down in bed, A&Ox3, significant other at bedside HEENT: Normocephalic, atraumatic, somewhat dry mucous membranes Respiratory: Normal respiratory effort, CTAB, + chronic nonproductive cough Cardiovascular: RRR, normal peripheral pulses, no BLE edema Abdomen/GI: Somewhat hypoactive bowel sounds, soft, nondistended, + mild TTP in L mid abd region and LLQ Extremities/Musculoskeletal: No cyanosis or clubbing, extremities motor strength intact, moves all extremities Neurologic: No overt focal deficits, CN's II-XI not formally tested but appear grossly intact bilaterally Skin: No rashes, normal color, warm/dry, + healed ex lap scar on abd Results & Data Results & Data Vital Signs (Past 12 Hours) Vital Signs Temp Pulse Pulse Resp BP BP Pulse Ox 12/04/24 12:13 70 12/04/24 10:30 65 18 143/87 H 98 12/04/24 10:00 69 18 99/62 L 99 12/04/24 09:46 68 15 138/86 100 12/04/24 09:00 63 19 126/79 98 12/04/24 08:30 64 19 116/77 98 12/04/24 08:12 66 12/04/24 07:58 67 20 153/87 H 98 12/04/24 07:50 65 14 139/93 99 12/04/24 07:50 65 14 99 12/04/24 07:04 16 12/04/24 07:04 36.6 C 90 18 144/99 H 99 O2 Del Method 12/04/24 12:13 12/04/24 10:30 12/04/24 10:00 12/04/24 09:46 12/04/24 09:00 12/04/24 08:30 12/04/24 08:12 12/04/24 07:58 12/04/24 07:50 Room Air 12/04/24 07:50 Room Air 12/04/24 07:04 12/04/24 07:04 Laboratory Results Short CBC 12/04/24 Range/Units 07:47 WBC 6.38 (4.8-10.8) K/ul Hgb 15.4 (12.0-16.0) g/dl Hct 46.8 (37.0-47.0) % Plt Count 285 (130-400) K/uL BMP 12/04/24 07:47 Sodium 142 Potassium 3.8 Chloride 106 Carbon Dioxide 29 BUN 15 Creatinine 0.63 Glucose 86 Calcium 9.2 Liver Function 12/04/24 Range/Units 07:47 Total Bilirubin 0.5 (0.2-1.0) mg/dl AST 15 (13-39) U/L ALT 11 (7-52) U/L Alkaline Phosphatase 53 (34-104) U/L Albumin 4.5 (3.4-5.0) gm/dl Urine 12/04/24 Range/Units 07:48 Urine Color Yellow Urine Appearance Clear (Clear) Urine pH 6.5 (4.5-7.5) Ur Specific Coleman 1.010 (1.000-1.030) Urine Protein Negative (Negative) Urine Glucose (UA) Negative (Negative) Diagnostic Findings Abdomen/Pelvis CT 12/04/24 07:28 CT angio chest PE protocol, CT abd pelvis IV con only CT DOSE: 1337.03 mGy.cm HISTORY: 54 years-old Female with PE. Acute shortness of breath with chest and abdominal pain TECHNIQUE: Multiple CTA images of the chest were obtained after the intravenous administration of 120 ml Optiray. Coronal and sagittal MIPS were obtained from the axial data set and were submitted for review. All measurements were obtained according to NASCET criteria. CT abdomen and pelvis with IV contrast only was also obtained. A dose lowering technique was utilized adhering to the principles of ALARA. COMPARISON: CT abdomen and pelvis 11/14/2023 FINDINGS: CTA: Heart is normal in size. No pericardial effusion. Mild atherosclerosis of the thoracic aorta without aortic aneurysm or dissection. Tiny linear filling defects were noted within segmental pulmonary arterial branches within the right lower lobe, image 132 series 5 which appear nonocclusive and likely chronic. No additional pulmonary emboli are identified. CT CHEST: 9 mm hypodense left thyroid nodule. Nonspecific 11 mm right hilar lymph node on image 156. No mediastinal or axillary lymphadenopathy. Mild pulmonary emphysema with bronchial wall thickening suggestive of bronchitis. Mild subsegmental right basilar atelectasis. 6 cm solid pulmonary nodule of the right middle lobe, image 129. Subpleural bleb formation of the lung apices. Unremarkable soft tissues. No acute fracture. CT ABDOMEN/PELVIS: No pneumatosis or pneumoperitoneum. Unremarkable spleen, pancreas, gallbladder and adrenal glands. The liver is within normal limits. Patency of the hepatic and portal veins. Small cyst of the inferior pole left kidney. No hydronephrosi s. Mild nonspecific bladder wall thickening. 6.2 cm soft tissue attenuating uterine mass is similar to prior, likely a uterine leiomyoma. Stable 3.2 cm cystic structures in the pelvis was imaged to 24 series 8. Atherosclerosis of the aorta. No lymphadenopathy. No bowel obstruction or bowel wall thickening. Anastomotic suture within the rectosigmoid. Colonic diverticulosis. Mild colonic fecal retention. Noninflamed appendix. Small bowel anastomosis within the left mid abdomen on image 175. There is an incidental likely transient jejunal jejunal intussusception within the left mid abdomen on image 132 series without upstream dilation, wall thickening or adjacent inflammatory stranding. There is however twisting of the left lower quadrant mesentery with focal narrowing/whirling of the adjacent small bowel loops, image 22 series 8 with trace edema within this distribution. No acute fracture. IMPRESSION: 1. Findings suggestive of an internal hernia within the left mid abdomen without upstream dilation or obstruction at this time. If symptoms persist, short-term follow-up CT may be considered. 2. Tiny nonocclusive pulmonary emboli within the right lower lobe are likely chronic. 3. Emphysema with suggestion of bronchitis. 4. Prior rectosigmoid anastomosis. 5. Colonic diverticulosis without acute diverticulitis. 6. 6 mm right middle lobe solid pulmonary nodule. Please refer to below summary of Fleischner criteria recommendations for follow- up of incidental CT nodules (Carlos Taylor, Guidelines for management of small pulmonary nodules detected on CT scans: A statement from the Fleischner Society, Radiology 237: [phone].) SOLID NODULES Solitary nodule size: 6-8 mm * Low risk patients: follow-up at 6-12 months, then consider further follow-up at 18-24 months * high risk patients: initial follow-up CT at 6-12 months and then at 18-24 months if no change Note: newly detected indeterminate nodule in persons 35 years of age or older. * Low risk patients: minimal or absent history of smoking and/or other known risk factors * high risk patients: history of smoking or of other known risk factors (e.g. first degree relative with lung cancer, or exposure to asbestos, radon, uranium) * if a nodule up to 8 mm is partly solid or is ground glass further follow-up is required after 24 months to exclude possible slow growing adenocarcinoma (DEEPTHI) ACT 112: Negative or not required by law. The above report was generated using voice recognition software. It may contain grammatical, syntax or spelling errors. Electronically signed by: Ángel Newell M.D. 12/04/2024 10:13 AM Chest X-Ray 12/04/24 07:28 XR chest 1V portable CLINICAL HISTORY: Abdominal pain. COMPARISON STUDY: Chest radiograph November 08, 2023. FINDINGS: Lung volumes are normal. A 1.3 cm nodular left lower lung density may represent a nipple shadow. Adjacent 2.3 cm ill-defined left lower lung densities present. There is no pneumothorax or pleural effusion. Cardiac size is normal. Mediastinal contours are normal. There is no evidence for pulmonary edema. IMPRESSION: 1. 2.3 cm ill-defined left lower lung density. This could represent a small focus of pneumonia or atelectasis. Radiographic follow-up to ensure resolution is recommended. 2. Adjacent 1.3 cm left lower lung nodular density. This may represent a nipple shadow but should be assessed on follow-up chest x-ray as well. ACT 112: Negative or not required by law. Electronically signed by: Gordo Chun M.D. 12/04/2024 8:04 AM Chest CTA 12/04/24 08:21 CT angio chest PE protocol, CT abd pelvis IV con only CT DOSE: 1337.03 mGy.cm HISTORY: 54 years-old Female with PE. Acute shortness of breath with chest and abdominal pain TECHNIQUE: Multiple CTA images of the chest were obtained after the intravenous administration of 120 ml Optiray. Coronal and sagittal MIPS were obtained from the axial data set and were submitted for review. All measurements were obtained according to NASCET criteria. CT abdomen and pelvis with IV contrast only was also obtained. A dose lowering technique was utilized adhering to the principles of ALARA. COMPARISON: CT abdomen and pelvis 11/14/2023 FINDINGS: CTA: Heart is normal in size. No pericardial effusion. Mild atherosclerosis of the thoracic aorta without aortic aneurysm or dissection. Tiny linear filling defects were noted within segmental pulmonary arterial branches within the right lower lobe, image 132 series 5 which appear nonocclusive and likely chronic. No additional pulmonary emboli are identified. CT CHEST: 9 mm hypodense left thyroid nodule. Nonspecific 11 mm right hilar lymph node on image 156. No mediastinal or axillary lymphadenopathy. Mild pulmonary emphysema with bronchial wall thickening suggestive of bronchitis. Mild subsegmental right basilar atelectasis. 6 cm solid pulmonary nodule of the right middle lobe, image 129. Subpleural bleb formation of the lung apices. Unremarkable soft tissues. No acute fracture. CT ABDOMEN/PELVIS: No pneumatosis or pneumoperitoneum. Unremarkable spleen, pancreas, gallbladder and adrenal glands. The liver is within normal limits. Patency of the hepatic and portal veins. Small cyst of the inferior pole left kidney. No hydronephrosis. Mild nonspecific bladder wall thickening. 6.2 cm soft tissue attenuating uterine mass is similar to prior, likely a uterine leiomyoma. Stable 3.2 cm cystic structures in the pelvis was imaged to 24 series 8. Atherosclerosis of the aorta. No lymphadenopathy. No bowel obstruction or bowel wall thickening. Anastomotic suture within the rectosigmoid. Colonic diverticulosis. Mild colonic fecal retention. Noninflamed appendix. Small bowel anastomosis within the left mid abdomen on image 175. There is an incidental likely transient jejunal jejunal intussusception within the left mid abdomen on image 132 series without upstream dilation, wall thic kening or adjacent inflammatory stranding. There is however twisting of the left lower quadrant mesentery with focal narrowing/whirling of the adjacent small bowel loops, image 22 series 8 with trace edema within this distribution. No acute fracture. IMPRESSION: 1. Findings suggestive of an internal hernia within the left mid abdomen without upstream dilation or obstruction at this time. If symptoms persist, short-term follow-up CT may be considered. 2. Tiny nonocclusive pulmonary emboli within the right lower lobe are likely chronic. 3. Emphysema with suggestion of bronchitis. 4. Prior rectosigmoid anastomosis. 5. Colonic diverticulosis without acute diverticulitis. 6. 6 mm right middle lobe solid pulmonary nodule. Please refer to below summary of Fleischner criteria recommendations for follow- up of incidental CT nodules (Carlos Taylor, Guidelines for management of small pulmonary nodules detected on CT scans: A statement from the Fleischner Society, Radiology 237: [phone].) SOLID NODULES Solitary nodule size: 6-8 mm * Low risk patients: follow-up at 6-12 months, then consider further follow-up at 18-24 months * high risk patients: initial follow-up CT at 6-12 months and then at 18-24 months if no change Note: newly detected indeterminate nodule in persons 35 years of age or older. * Low risk patients: minimal or absent history of smoking and/or other known risk factors * high risk patients: history of smoking or of other known risk factors (e.g. first degree relative with lung cancer, or exposure to asbestos, radon, uranium) * if a nodule up to 8 mm is partly solid or is ground glass further follow-up is required after 24 months to exclude possible slow growing adenocarcinoma (DEEPTHI) ACT 112: Negative or not required by law. The above report was generated using voice recognition software. It may contain grammatical, syntax or spelling errors. Electronically signed by: Ángel Newell M.D. 12/04/2024 10:13 AM Medications Administered Discontinued Medications Sodium Chloride (Nss) 1,000 mls @ 999 mls/hr IV .Q1H1M ONE Stop: 12/04/24 08:27 Last Infusion: 12/04/24 10:04 Dose: Infused Documented By: Admin: 12/04/24 07:50 Dose: 999 mls/hr Documented By: brittany Acetaminophen (Ofirmev) 1,000 mg in 100 mls @ 400 mls/hr IV NOW STA Stop: 12/04/24 07:41 Last Infusion: 12/04/24 08:10 Dose: Infused Documented By: brittany Admin: 12/04/24 07:50 Dose: 400 mls/hr Documented By: brittany Famotidine (Pepcid 20mg Iv Push) 20 mg in 5 mls @ 2.5 mls/min IV NOW STA Stop: 12/04/24 07:28 Last Admin: 12/04/24 07:50 Dose: 2.5 mls/min Documented By: brittany Ioversol (Optiray 320 125ml) 120 ml IV ONCE ONE Stop: 12/04/24 09:37 Last Admin: 12/04/24 09:36 Dose: 120 ml Documented By: STANISLAV Lorazepam (Lorazepam 1 Mg/1 Ml Syr Ed Inj Use) 0.25 mg IV ONE STA Stop: 12/04/24 11:04 Last Admin: 12/04/24 11:35 Dose: 0.25 mg Documented By: brittany (1) Abdominal pain Abdominal location: unspecified location Qualified Code(s): R10.9 - Uns pecified abdominal pain (3) Pulmonary emboli Pulmonary embolism type: unspecified Chronicity: unspecified Acute cor pulmonale presence: unspecified Qualified Code(s): I26.99 - Other pulmonary embolism without acute cor pulmonale
[2024-12-04] MEDS ORDERED: ALBUT/IPRATROP 3MG/0.5MG NEB 3 ML VIAL NEB PRN (12:52)
--- NOTE | 2024-12-04 13:01 | Communication Note ---
Date of Service: December 04, 2024 Attending Addendum: Case reviewed with the advanced practitioner. I have personally performed a history and physical examination on the patient. I have reviewed the advanced practitioner's documentation on the date of service referenced in note, and I agree with, and take responsibility for the plan of care. please refer to her notes for full details patient seen and examined, records reviewed by myself as well on exam, patient seen resting in bed, not in distress states she feels ok overall has mild discomfort lower central abdomen no nausea (+) flatus had a small BM earlier, watery, non bloody no other symptoms VS noted and reviewed oriented x3, not in distress, speaks in sentences with no effort nor accessory muscle use NG tube in place: no output yet normal rate, regular rhythm, no murmurs clear breath sounds bilaterally non distended, (+) good bowel sounds, soft, nontender no bipedal edema, erythema, warmth no neuro deficits all labs, imaging noted and reviewed ASSESSMENT AND PLAN> SMALL BOWEL OBSTRUCTION history of small bowel resection from perforated diverticulitis 11/2023 history of colon resection 2020 - CT abd/pelvis: Findings suggestive of an internal hernia within the left mid abdomen without upstream dilation or obstruction at this time. If symptoms persist, short-term follow-up CT may be considered. - evaluated by Gen Surg: NG tube placed, conservative management for now IV fluids, pain control, NPO, monitor electrolytes MULTIPLE INCIDENTAL FINDINGS ON CT CHEST, ABDOMEN/PELVIS including aortic atherosclerosis, thyroid nodule, pulmonary nodule, bladder wall thickening, etc Please refer to full report Further work up, management, and ff up as outpatient I spent a total of 40 minutes coordinating, documenting, and providing care for this patient, excluding time spent in the performance of separately billed serv ices or time spent by another provider/QHP. Denzel Norman MD
--- NOTE | 2024-12-04 13:54 | Surgery Consultation ---
Date of Consultation December 04, 2024 Assessment & Plan (1) Internal hernia: (2) Abdominal pain: (3) Pulmonary emboli: incidental findings , patient asymptomatic no prior history of DVT or PE, no blood thinning agents Plan 54 year old female with history of sigmoid colon resection for perforated diverticulitis with abscess in [place] in 2020 and small bowel resection for closed loop obstruction in November 2023 here at [facility] presented to ED with worsening chronic abdominal pain since her last surgery but worse in last few months. States her appetite has been decreased due to the abdominal discomfort. Bowel habits have been regular. No persistent nausea or vomiting but does have burning like sensation with vomiting in her mouth at times while eating. CT scan of abdomen and pelvis showing small bowel intussusception along with twisting of mesentery in left abdomen raising concern for internal hernia. She has no leukocytosis, afebrile, vitals stable, abdomen is soft, nondistended and not peritonitic. Discussed findings with patient and family member at bedside. Given her unremarkable labs, no fever, and abdominal examination would recommend conservative management up front with bowel rest, IV fluids, pain management as needed, NGT for decompression and close monitoring. I think she would benefit from a SBFT study as outpatient if we can get her through this hospitalization without surgical intervention. Dr. Sanchez has seen and examined patient agrees with above. History of Present Illness Reason for Consultation: Internal hernia Requesting Physician: Josefa Garcia PA-C History of Present Illness Julissa is a 54 year old female with history of bowel perforation due to diverticulitis in 2020 in [place] in which she underwent laparoscopic sigmoid resection with anastomosis and then small bowel resection in November of 2023 here at [facility] for closed loop obstruction presented to ED with worsening abdominal pain that has been chronic since her last surgery in November. States she will have generalized abdominal pain that starts in upper abdomen and goes throughout entire abdomen with associated decreased appetite. States she has been having chronic pain in her abdomen for months. Burning sensation with vomiting in mouth while eating. Does not take any antacid medication. She states her bowel habits are normal. Last bowel movement was yesterday morning and she is continuing to pass gas. She is not vomiting. Allergies Allergy/AdvReac Type Severity Reaction Status Date / Time fluconazole Allergy Mild Rash Unverified 03/06/24 17:14 morphine Allergy Mild Hives Unverified 03/06/24 17:14 Home Medications Medication Instructions Recorded Confirmed Type diphenhydramine HCl 25 mg capsule 25 mg PO HS 12/04/24 12/04/24 History (Benadryl) melatonin 10 mg tablet 10 - 20 mg PO HS 12/04/24 12/04/24 History multivitamin 1 tab PO QAM 12/04/24 12/04/24 History Patient History Medical History Depression GERD (gastroesophageal reflux disease) Diverticulitis Surgical History H/O laparoscopy (11/07/23) diagnostic laparoscopy, lysis of adhesions, exploratory laparotomy, Small Bowel Resection with small bowel anastomosis- Stew Tomlinson, , FACS Hx of colectomy 2020 Laparoscopic partial colectomy with coloproctostomy Hx of hemorrhoidectomy Hx of tubal ligation Hx of section Family History Grandmother (Maternal) Diabetes Social History Smoking Status: Former smoker Tobacco Type: Cigarettes Do You Dip or Chew Tobacco: No; Hx Alcohol Use: No Hx Substance Use: No Preferred Language: Greenlandic Communication Ability: Effective Visual Impairment: No 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: No Beliefs That Will Affect Care: None marital status: Current Living Situation: Spouse and Family current occupational status: employed Feels Safe at Home: Yes Assistive Devices: None Review of Systems Review of Systems: All systems reviewed & are unremarkable except as noted in HPI & below Physical Exam Constitutional: WD/WN, vitals as above cooperative and comfortable; no acute distress, not ill appearing, not in distress, not diaphoretic and not lethargic Respiratory: normal respiratory effort, lungs clear to auscultation Cardiovascular: RRR, no murmur, no edema Gastrointestinal (Abdomen): Inspection/Auscultation: abdomen normal to inspection and + abdominal surgical scar (midline laparotomy scar, laparoscopic scars); abdomen not distended Percussion/Palpation: + abdomen tender (generalized tenderness, more tender in the LUQ and left mid abdomen) and abdomen soft; no guarding, abdomen not rigid and abdomen not firm Skin: no rashes, warm and dry Psychiatric: Orientation: alert and oriented x 3 Results & Data Vital Signs (Past 12 Hours) Vital Signs Temp Pulse Pulse Resp BP BP Pulse Ox 12/04/24 12:13 70 12/04/24 10:30 65 18 143/87 H 98 12/04/24 10:00 69 18 99/62 L 99 12/04/24 09:46 68 15 138/86 100 12/04/24 09:00 63 19 126/79 98 12/04/24 08:30 64 19 116/77 98 12/04/24 08:12 66 12/04/24 07:58 67 20 153/87 H 98 12/04/24 07:50 65 14 139/93 99 12/04/24 07:50 65 14 99 12/04/24 07:04 16 12/04/24 07:04 36.6 C 90 18 144/99 H 99 O2 Del Method 12/04/24 12:13 12/04/24 10:30 12/04/24 10:00 12/04/24 09:46 12/04/24 09:00 12/04/24 08:30 12/04/24 08:12 12/04/24 07:58 12/04/24 07:50 Room Air 12/04/24 07:50 Room Air 12/04/24 07:04 12/04/24 07:04 Laboratory Results 12/04/24 12/04/24 Range/Units 07:48 07:47 WBC 6.38 (4.8-10.8) K/ul RBC 5.09 (4.20-5.40) M/uL Hgb 15.4 (12.0-16.0) g/dl Hct 46.8 (37.0-47.0) % MCV 91.9 (80.0-100.0) fL MCH 30.3 (25.0-34.0) pg MCHC 32.9 (32.0-36.0) g/dL RDW Std Deviation 42.3 (36.4-46.3) fL RDW Coeff of Thong 12.4 (11.5-14.5) % Plt Count 285 (130-400) K/uL MPV 9.8 (9.4-12.4) fL Immature Gran % (Auto) 0.2 % Neut % (Auto) 65.0 % Lymph % (Auto) 25.9 % Nance % (Auto) 6.0 % Eos % (Auto) 2.0 % Baso % (Auto) 0.9 % Neut # (Auto) 4.15 (1.40-6.50) K/uL Lymph # (Auto) 1.65 (1.20-3.40) K/uL Nance # (Auto) 0.38 (0.11-0.59) K/uL Eos # (Auto) 0.13 (0.00-0.50) K/uL Baso # (Auto) 0.06 (0.00-0.20) K/uL Immature Gran # (Auto) 0.01 (0.01-0.20) K/uL Sodium 142 (136-145) mmol/L Potassium 3.8 (3.5-5.1) mmol/L Chloride 106 (98-107) mmol/L Carbon Dioxide 29 (21-32) mmol/L Anion Gap 7 (3-11) BUN 15 (6-23) mg/dl Creatinine 0.63 (0.6-1.2) mg/dl Est Cr Clr Drug Dosing 89.2 ml/min eGFR 106.01 BUN/Creatinine Ratio 23.8 H (10-20) Glucose 86 (70-99(Fasting)) mg/dl Calcium 9.2 (8.6-10.3) mg/dl Total Bilirubin 0.5 (0.2-1.0) mg/dl AST 15 (13-39) U/L ALT 11 (7-52) U/L Alkaline Phosphatase 53 (34-104) U/L Total Protein 7.3 (6.0-8.3) gm/dl Albumin 4.5 (3.4-5.0) gm/dl Globulin 2.8 (2.5-4.0) gm/dl Albumin/Globulin Ratio 1.6 (0.9-2) Lipase 17 (11-82) U/L Urine Color Yellow Urine Appearance Clear (Clear) Urine pH 6.5 (4.5-7.5) Ur Specific [place] 1.010 (1.000-1.030) Urine Protein Negative (Negative) Urine Glucose (UA) Negative (Negative) Urine Ketones Negative (Negative) Urine Blood Negative (Negative) Urine Nitrite Negative (Negative) Urine Bilirubin Negative (Negative) Urine Urobilinogen Negative (Negative) Ur Leukocyte Esterase Negative (Negative) Urine Comment Diagnostic Findings CT angio chest PE protocol, CT abd pelvis IV con only CT DOSE: 1337.03 mGy.cm HISTORY: 54 years-old Female with PE. Acute shortness of breath with chest and abdominal pain TECHNIQUE: Multiple CTA images of the chest were obtained after the intravenous administration of 120 ml Optiray. Coronal and sagittal MIPS were obtained from the axial data set and were submitted for review. All measurements were obtained according to NASCET criteria. CT abdomen and pelvis with IV contrast only was also obtained. A dose lowering technique was utilized adhering to the principles of ALARA. COMPARISON: CT abdomen and pelvis 11/14/2023 FINDINGS: CTA: Heart is normal in size. No pericardial effusion. Mild atherosclerosis of the thoracic aorta without aortic aneurysm or dissection. Tiny linear filling defects were noted within segmental pulmonary arterial branches within the right lower lobe, image 132 series 5 which appear nonocclusive and likely chronic. No additional pulmonary emboli are identified. CT CHEST: 9 mm hypodense left thyroid nodule. Nonspecific 11 mm right hilar lymph node on image 156. No mediastinal or axillary lymphadenopathy. Mild pulmonary emphysema with bronchial wall thickening suggestive of bronchitis. Mild subsegmental right basilar atelectasis. 6 cm solid pulmonary nodule of the right middle lobe, image 129. Subpleural bleb formation of the lung apices. Unremarkable soft tissues. No acute fracture. CT ABDOMEN/PELVIS: No pneumatosis or pneumoperitoneum. Unremarkable spleen, pancreas, gallbladder and adrenal glands. The liver is within normal limits. Patency of the hepatic and portal veins. Small cyst of the inferior pole left kidney. No hydronephrosis. Mild nonspecific bladder wall thickening. 6.2 cm soft tissue attenuating uterine mass is similar to prior, likely a uterine leiomyoma. Stable 3.2 cm cystic structures in the pelvis was imaged to 24 series 8. Atherosclerosis of the aorta. No lymphadenopathy. No bowel obstruction or bowel wall thickening. Anastomotic suture within the rectosigmoid. Colonic diverticulosis. Mild colonic fecal retention. Noninflamed appendix. Small bowel anastomosis within the left mid abdomen on image 175. There is an incidental likely transient jejunal jejunal intussusception within the left mid abdomen on image 132 series without upstream dilation, wall thickening or adjacent inflammatory stranding. There is however twisting of the left lower quadrant mesentery with focal narrowing/whirling of the adjacent small bowel loops, image 22 series 8 with trace edema within this distribution. No acute fracture. IMPRESSION: 1. Findings suggestive of an internal hernia within the left mid abdomen without upstream dilation or obstruction at this time. If symptoms persist, short-term follow-up CT may be considered. 2. Tiny nonocclusive pulmonary emboli within the right lower lobe are likely chronic. 3. Emphysema with suggestion of bronchitis. 4. Prior rectosigmoid anastomosis. 5. Colonic diverticulosis without acute diverticulitis. 6. 6 mm right middle lobe solid pulmonary nodule. Please refer to below summary of Fleischner criteria recommendations for follow- up of incidental CT nodules (Carlos Taylor, Guidelines for management of small pulmonary nodules detected on CT scans: A statement from the Fleischner Society, Radiology 237: [phone].) SOLID NODULES Solitary nodule size: 6-8 mm * Low risk patients: follow-up at 6-12 months, then consider further follow-up at 18-24 months * high risk patients: initial follow-up CT at 6-12 months and then at 18-24 months if no change Note: newly detected indeterminate nodule in persons 35 years of age or older. * Low risk patients: minimal or absent history of smoking and/or other known risk factors * high risk patients: history of smoking or of other known risk factors (e.g. first degree relative with lung cancer, or exposure to asbestos, radon, uranium) * if a nodule up to 8 mm is partly solid or is ground glass further follow-up is required after 24 months to exclude possible slow growing adenocarcinoma (DEEPTHI) I personally reviewed CT scan images and concur with above findings (2) Abdominal pain Abdominal location: unspecified location Qualified Code(s): R10.9 - Unspecified abdominal pain (3) Pulmonary emboli Pulmonary embolism type: unspecified Chronicity: unspecified Acute cor pulmonale presence: unspecified Qualified Code(s): I26.99 - Other pulmonary embolism without acute cor pulmonale
--- NOTE | 2024-12-04 14:41 | XRay Report ---
KUB HISTORY: Ng Tube placement COMPARISON STUDY: 11/07/2023 FINDINGS: Nasogastric tube tip is in the proximal stomach with the sidehole just beyond the GE juncti on. IMPRESSION: Nasogastric tube as described. ACT 112: Negative or not required by law. The above report was generated using voice recognition software. It may contain grammatical, syntax o r spelling errors. Electronically signed by: Stew Goodrich M.D. 12/04/2024 2:40 PM
--- NOTE | 2024-12-04 15:19 | Ultrasound Report ---
BILATERAL LOWER EXTREMITY VENOUS DOPPLER HISTORY: R/o DVT COMPARISON STUDY: None FINDINGS: No evidence of DVT seen at the lower extremities. IMPRESSION: No DVT seen. ACT 112: Negative or not required by law. Electronically signed by: Stew Goodrich M.D. 12/04/2024 3:18 PM
[2024-12-04] MEDS: SODIUM CHLORIDE 0.9% 1,000 ML IV SCH (15:51)
[2024-12-04] MEDS ORDERED: MAGNESIUM HYDROXIDE SUSP 30 ML UDC PO PRN (18:02)
[2024-12-04] MEDS ORDERED: ACETAMINOPHEN 325 MG TAB PO PRN (18:02)
[2024-12-04] MEDS ORDERED: ONDANSETRON INJ 2 MG/ML 2 ML VIAL IV PRN (18:02)
[2024-12-04] MEDS ORDERED: POLYETHYLENE (MIRALAX) 17 GM PACK PO PRN (18:02)
[2024-12-04] MEDS: ENOXAPARIN INJ 40 MG/0.4 ML SYR SQ SCH (18:34)
[2024-12-04] MEDS ORDERED: MELATONIN 3 MG TAB PO PRN (18:56)
[2024-12-04] MEDS: LORazepam Inj 0.5 MG in SYRINGE 0.25 ML IV PRN (21:43)
[2024-12-04] MEDS: PANTOprazole 40 MG/10 ML SYR IV SCH (21:45)
[2024-12-05 06:45] LABS: Hematocrit (blood only) 42.0 % (37.0-47.0); Hemoglobin 14.1 g/dl (12.0-16.0); Mean Corpuscular Hemoglobin 31.1 pg (25.0-34.0); Mean Corpuscular Volume 92.7 fL (80.0-100.0); Platelet Count 264 K/uL (130-400); RDW Standard Deviation 42.5 fL (36.4-46.3); Red Blood Count 4.53 M/uL (4.20-5.40); White Blood Count 5.51 K/ul (4.8-10.8)
[2024-12-05 06:48] LABS: Anion Gap 5.0 (3-11); Blood Urea Nitrogen 13.0 mg/dl (6-23); Calcium 8.7 mg/dl (8.6-10.3); Carbon Dioxide 23.0 mmol/L (21-32); Chloride 113.0 mmol/L (98-107); Cholesterol 168.0 mg/dl (0-200); Creatinine Clr Calc Pharmacy 92.1 ml/min; Glucose 82.0 mg/dl (70-99(Fasting)); HDL Cholesterol 41.0 mg/dl; Magnesium 2.0 mg/dl (1.7-2.4); Potassium 4.1 mmol/L (3.5-5.1); Sodium 141.0 mmol/L (136-145); Triglycerides 111.0 mg/dl (0-150)
[2024-12-05 07:03] LABS: Thyroid Stimulating Hormone 2.721 uIu/ml (0.300-4.500)
--- NOTE | 2024-12-05 08:50 | Surgery Progress Note ---
Date of Service December 05, 2024 Assessment & Plan (1) Bowel obstruction: Plan: clinically improving NG clamping trial KUB in AM; if repeat symptoms would repeat CT scan if needed Admission and Anticipated Discharge Date Admission Date: December 04, 2024 Subjective issue with NG overnight but in place and working now clinically feels better Review of Systems Constitutional: no fever and no chills Respiratory: no dyspnea Cardiovascular: no chest pain Gastrointestinal: no nausea and no vomiting Neurologic: no localized weakness Psychiatric: no behavioral changes Physical Exam Constitutional: WD/WN, vitals as above Respiratory: normal respiratory effort, lungs clear to auscultation Cardiovascular: RRR, no murmur, no edema Gastrointestinal (Abdomen): Inspection/Auscultation: abdomen normal to inspection and normal bowel sounds; abdomen not distended Percussion/Palpation: abdomen soft; abdomen nontender Musculoskeletal: Head/Neck/Chest: normocephalic and head atraumatic Results & Data Vital Signs (Past 12 Hours) Vital Signs Temp Pulse Resp BP Pulse Ox O2 Del Method 12/05/24 08:00 36.1 C L 73 18 122/82 98 Room Air 12/04/24 22:31 36.7 C 71 16 104/73 98 Room Air
[2024-12-05] MEDS ORDERED: MULTIVITAMIN TAB PO SCH (09:00)
[2024-12-05] MEDS: LORazepam Inj 0.5 MG in SYRINGE 0.25 ML IV PRN (12:09)
--- NOTE | 2024-12-05 13:10 | Hospitalist Progress Note ---
Date of Service December 05, 2024 Assessment & Plan (1) Small bowel obstruction due to adhesions: (2) Internal hernia: (3) Pulmonary emboli: (4) Depression: (5) Pulmonary nodule less than 1 cm in diameter with moderate to high risk for malignant neoplasm: (6) Thyroid nodule incidentally noted on imaging study: (7) Uterine fibroid: (8) Peripheral arterial disease: Plan Patient 54-year-old female presented with signs and symptoms consistent with small bowel obstruction. Symptoms have significantly improved Reviewed surgical plan for trial of clamping and possibly advancing diet later today. Multiple incidental findings, no significant is small peripheral pulmonary em bolism. Patient is asymptomatic. At this time does appear to be some blood in the NG tube drainage. Risks of bleeding may outweigh benefits at this time. However overall patient would be at somewhat higher risk with history of smoking and will evidence of lung nodule for recurrent VTE. Will continue discussing anticoagulation. Reviewing medical literature indicates that most common decision would be to start anticoagulation for at least 3 to 6 months. Echocardiogram did not show any significant pulmonary hypertension or strain of the right ventricle. Patient does struggle with some anxiety, does use lorazepam intermittently at home. Will increase frequency of Ativan here to manage her acute anxiety related to her medical condition. at bedside updated plan of care Admission and Anticipated Discharge Date Admission Date: December 04, 2024 Subjective Patient reports had some bowel movements last night. Extremely anxious and concerned that the NG tube did not seem to be hooked up correctly for several hours overnight. Denies any chest pain or shortness of breath. Physical Exam Physical Exam: Constitutional: Alert, nontoxic HEENT: Mucous membranes moist. NG tube in place Lungs: Clear to auscultation, decreased, no wheezes rales or rhonchi CV: S1-S2, regular Abdomen: Soft, nontender, nondistended, normal active bowel sounds Extremities: No significant edema Neuro: No focal deficits Psych: Cooperative, normal mood Results & Data Results & Data Vital Signs (Past 12 Hours) Vital Signs Temp Pulse Resp BP Pulse Ox O2 Del Method 12/05/24 08:00 36.1 C L 73 18 122/82 98 Room Air Diagnostic Findings Reviewed imaging, laboratory and diagnostic studies. Pertinent findings as below. CBC within normal limits BMP stable Creatinine 0.61 TSH 2.7 Echocardiogram shows normal ejection fraction 55 to 60%, normal right ventricular size and function, no evidence of pulmonary hypertension (3) Pulmonary emboli Pulmonary embolism type: unspecified (7) Uterine fibroid Uterine leiomyoma location: unspecified location Qualified Code(s): D25.9 - Leiomyoma of uterus, unspecified
[2024-12-06 06:25] LABS: Hematocrit (blood only) 37.3 % (37.0-47.0); Hemoglobin 12.5 g/dl (12.0-16.0); Immature Granulocytes # (auto) 0.01 K/uL (0.01-0.20); Immature Granulocytes % (auto) 0.2 %; Mean Corpuscular Hemoglobin 30.4 pg (25.0-34.0); Mean Corpuscular Volume 90.8 fL (80.0-100.0); Platelet Count 238 K/uL (130-400); RDW Standard Deviation 40.0 fL (36.4-46.3); Red Blood Count 4.11 M/uL (4.20-5.40); White Blood Count 5.46 K/ul (4.8-10.8)
--- NOTE | 2024-12-06 07:34 | XRay Report ---
EXAM: XR KUB/Abdomen 1 view CLINICAL HISTORY: SBO TECHNIQUE: X-ray images of the abdomen were obtained in supine and upright positions. COMPARISON: 11/07/2023 06:02:11 RETAIL EVENT ASSISTANT FINDINGS: Gas Pattern: The gas pattern within the abdomen is normal. Large bowel shows gaseous distension. There is no evidence of bowel obstruction or distention. Soft Tissues: The soft tissues of the abdomen appear normal, without evidence of masses or calcifications. The liver, spleen, and kidneys are of normal size and position. IMPRESSION: Normal abdominal X-ray. Large bowel shows gaseous distension. No dilated bowel loops seen in present study compared to prior scan. Electronically signed by Jesus Reina 12-06-2024 07:34 AM
[2024-12-06 08:14] VITALS: BP 132/88; PULSE 75; RESP 18; TEMP 98.2; O2SAT 97
[2024-12-06 09:51] LABS: Anion Gap 7.0 (3-11); Calcium 8.3 mg/dl (8.6-10.3); Carbon Dioxide 23.0 mmol/L (21-32); Chloride 110.0 mmol/L (98-107); Potassium 3.8 mmol/L (3.5-5.1); Sodium 140.0 mmol/L (136-145)
--- NOTE | 2024-12-06 09:51 | Surgery Progress Note ---
Date of Service December 06, 2024 Assessment & Plan (1) Bowel obstruction: Plan: Julissa is doing well this morning. KUB completed this AM looks good- no dilated bowel loops. She was advanced to regular diet for lunch, if she tolerates she is ok for discharge from surgical perspective. Patient seen and examine with Dr. Jewell. Admission and Anticipated Discharge Date Admission Date: December 05, 2024 Supervising Physician Co-Signing Physician Notes I have seen and examined this patient this am with the surgical PA. I agree with this plan. Subjective Julissa is sitting in bed- reports that she is feeling good this morning- has been tolerating clear liquids since removal of NG tube. She is passing gas. Denies N/V. Feels ready for discharge. Physical Exam Constitutional: WD/WN, vitals as above Respiratory: normal respiratory effort, lungs clear to auscultation Cardiovascular: RRR, no murmur, no edema Gastrointestinal (Abdomen): Inspection/Auscultation: abdomen normal to inspection and normal bowel sounds; abdomen not distended Per cussion/Palpation: abdomen soft; abdomen nontender Musculoskeletal: Head/Neck/Chest: normocephalic and head atraumatic Results & Data Vital Signs (Past 12 Hours) Vital Signs Temp Pulse Resp BP Pulse Ox O2 Del Method 12/06/24 07:29 36.8 C 75 18 132/88 97 Room Air PG Care Time/CCT Total # of Minutes Spent Total Time Spent with Patient: Total time spent is greater than 50% in coordination of care (as documented) at patient's floor/unit and/or counseling patient: Coding Level of Care Code 55943 SUB INP/OBS CARE 2/35MIN Diagnoses Bowel obstruction K56.609
[2024-12-06 09:56] LABS: Blood Urea Nitrogen 9.0 mg/dl (6-23); Creatinine Clr Calc Pharmacy 106.0 ml/min; Glucose 80.0 mg/dl (70-99(Fasting))
[2024-12-06] MEDS: APIXABAN 5 MG TABLET PO SCH (10:34)
--- NOTE | 2024-12-06 11:43 | Discharge Summary ---
Discharge Summary Date of Service December 06, 2024 Principal Dx & Hospital Course #1 = Principal Diagnosis (1) Small bowel obstruction due to adhesions: (2) Internal hernia: (3) Pulmonary emboli: (4) Depression: (5) Pulmonary nodule less than 1 cm in diameter with moderate to high risk for malignant neoplasm: (6) Thyroid nodule incidentally noted on imaging study: (7) Uterine fibroid: (8) Peripheral arterial disease: Plan Patient 54-year-old female with history of small bowel obstructions due to adhesions from extensive abdominal surgery in the past, presented to the emergency room with abdominal pain and burning. Imaging in the emergency room was consistent with a small bowel obstruction and internal hernia. Also the patient on imaging had multiple incidental findings that require outpatient evaluation. Of more significance is that she did have very small subsegmental, peripheral pulmonary emboli. This appeared chronic. Due to the fact that she was n.p.o. and was asymptomatic initial decision was to not initiate anticoagulation. Patient was admitted to the hospital with NG tube drainage and IV fluid resuscitation. Surgical consultation was obtained. She was evaluated by surgery who recommended ongoing conservative medical management. By the following day patient started passing gas next had some liquid bowel movement. The NG tube was clamped and subsequently removed and her diet was advanced. On the morning of discharge her abdominal pain had completely resolved. She was tolerating advancing of her diet. Had a long and extensive conversation with the patient about this pulmonary embolism. She does have risk factors for PE including smoking, age, pulmonary nodule of unknown pathology. Review of the medical literature indicates that the most recommended course of action is anticoagulation for at least 3 to 6 months because the risks of a major recurrent pulmonary embolism outweigh the risks of bleeding. I discussed this all with the patient. She is agreeable to starting Eliquis. Since this is not appear to be acute pulmonary embolism and is asymptomatic I do not think that we need to load her with Eliquis will start her on the maintenance dose for VTE prophylaxis at 5 mg 2 times daily. I would recommend she be on the Eliquis for at least 3 to 6 months. At that time can determine whether she can discontinue the Eliquis, consider hematology consultation and further evaluation for hypercoagulable state. In that period of time also would be due for reimaging of her lungs to evaluate the pulmonary nodule which may further play into a risk assessment also to highly encouraged her to stop smoking which would also play into her risk assessment. Patient tolerated lunch. Surgery felt that she was ready for discharge from their standpoint recommended trying to maintain a soft bulky stool and she will follow-up with her outpatient providers. Notes For Next Care Provider Consider outpatient hematology consultation Recommend anticoagulation at least 3 to 6 months Continue to encourage smoking cessation Will need repeat chest CT in 6 to 12 months to evaluate pulmonary nodule Consider additional imaging for thyroid nodule Medication Changes From Visit Eliquis for chronic VTE MiraLAX and Colace Admission HPI Per Admitting Provider Patient is a 54-year-old female with past medical history significant for complicated diverticulitis in August 2020 s/p laparoscopic sigmoid colectomy and small bowel resection, right inguinal hernia s/p laparoscopic repair with mesh in August 2022, high-grade small bowel obstruction with 2 areas of contained perforation on the mesenteric side of the bowel in November 2023 s/p exploratory laparotomy with small bowel resection, tobacco use, GERD, history of esophagitis and depression who presented to the ED with complaints of abdominal pain and discomfort. History obtained from the patient, patient's significant other at bedside, discussion with ED provider and associated chart review. Confinement under our service for high-grade small bowel obstruction with 2 areas of contained perforation on the mesenteric side of the bowel in November 2023 s/p exploratory laparotomy with small bowel resection performed by Dr. Tomlinson. Admits to having some intermittent left-sided abdominal discomfort since her surgery last November. Notes this would occasionally come and go. However, since yesterday, she has been experiencing left mid abdominal pain which has been pretty persistent. Describes it as a burning sensation. Poor oral intake. Tolerating sips of fluid, had a chicken breast from [facility] last night. Mild nausea. No vomiting. Last BM yesterday. Passing flatus. Has been experiencing some intermittent esophageal reflux symptoms over the past several years but these seem to be more persistent over the last 2 months. Not currently on any PPIs or H2 blockers. No reported fevers. Denies any congestion or chest pain. Chronic cough which feels unchanged from baseline. Longtime smoker, attempting to wean off. Last cigarette use yesterday. No alcohol use. No recreational drug use. Admission Exam Per Admitting Provider See H&P Discharge Exam Constitutional: Alert, nontoxic HEENT: Mucous membranes moist. Lungs: Clear to auscultation, decreased, no wheezes rales or rhonchi CV: S1-S2, regular Abdomen: Soft, nontender, nondistended, normoactive bowel sounds Extremities: No significant edema Neuro: No focal deficits Psych: Cooperative, normal mood Updated Medication List Medication Instructions Recorded Confirmed Type diphenhydramine HCl 25 mg capsule 25 mg PO HS 12/04/24 12/04/24 History (Benadryl) melatonin 10 mg tablet 10 - 20 mg PO HS 12/04/24 12/04/24 History multivitamin 1 tab PO QAM 12/04/24 12/04/24 History apixaban 5 mg tablet (Eliquis) 5 mg PO BID #60 tabs 12/06/24 Rx docusate sodium 100 mg capsule 100 mg PO HS #30 caps 12/06/24 Rx (Colace) pantoprazole 40 mg tablet,delayed 40 mg PO QAM #30 tabs 12/06/24 Rx release polyethylene glycol 3350 17 gram 17 g PO DAILY #30 ea 12/06/24 Rx oral powder packet (Miralax) Hospital Stay Data Consultations 12/04/24 12:29 ED Decision to Admit Stat 12/04/24 18:02 Consult General Surgery Routine Diagnostic Imagining Performed 12/04/24 07:28 CT abd pelvis IV con only Stat 12/04/24 08:21 CT angio chest PE protocol Stat 12/04/24 12:46 US venous doppler LE Stat Reviewed imaging, laboratory and diagnostic studies. Pertinent findings as below. KUB from the day of discharge showed nonspecific gas pattern, no evidence of obstruction Ultrasound lower extremity negative for DVT CTA of the chest showed tiny occlusive pulmonary emboli in the right lower lobe, emphysema, evidence of a left mid abdomen small bowel obstruction with internal hernia, evidence of prior rectosigmoid anastomosis, right middle lobe pulmonary nodule, left thyroid nodule, right hilar lymph node Echocardiogram showed normal ejection fraction, no significant right ventricular strain Electrolytes within normal ranges Creatinine 0.53 WBCs 5.4 Hemoglobin 12.5 Pending Results Patient Have Any Pending Studies at Discharge: No Discharge Instructions Given to Patient (Per Discharging Provider) Recommending maintaining a soft bulky stool Discuss follow-up with your PCP over the incidental findings on imaging Discuss with your PCP potential hematology consultation for your blood clots Total Time Total Time Spent Total Time Spent (In Minutes): 36
== END 2024-12-06 13:08 | disposition home or self-care (01) | DRG 389 ==
LOC: ED 07:03 → 3E 07:03 → SUATTDRO 12:50 → 3E 17:22